=== PATIENT | male | born 1940 | race Caucasian/White ===

== ENCOUNTER → 2019-07-05 11:39 | Outpatient (CLI) | payer MEDICARE, OTHER, SELFPAY ==
[2019-07-05 12:03] LABS: WBC Urine None Seen (0-5/HPF)
[2019-07-05 12:36] LABS: Appearance Urine UA CLEAR; Bilirubin Urine UA NEGATIVE (NEGATIVE); Color Urine UA YELLOW; Glucose Urine UA NEGATIVE (Negative); Ketones Urine UA NEGATIVE (NEGATIVE); Leukocyte Esterase Urine UA NEGATIVE (NEGATIVE); Nitrite Urine UA NEGATIVE (Negative); Occult Blood Urine UA TRACE-LYSED (Negative); Protein Urine UA NEGATIVE (Negative); Urobilinogen Urine UA 0.2 E.U./dL (0.2); pH Urine UA 5.5 (4.5-8.0)
[2019-07-05 12:51] LABS: Bacteria Urine Few (2-10); Calcium Oxalate Crystals Urine Few; Culture Indicated Urine Cult Not Indicated; Mucus Urine 1+ (Negative); RBC Urine 0-1/HPF (0-5/HPF)
[2019-07-05 12:52] LABS: BUN Creatinine Ratio 27.5 (6-22); Blood Urea Nitrogen 22 mg/dL (9-20); Calcium 9.2 mg/dL (8.4-10.2); Carbon Dioxide 32 mmol/L (22-32); Chloride 100 mmol/L (98-107); Estimated Glomerular Filt Rate > 60.0 mL/min (>60); Glucose 111 mg/dL (80-110); HEMOLYSIS < 15 (0-50); Potassium 4.1 mmol/L (3.4-5.1); Sodium 141 mmol/L (137-145)
[2019-07-05 13:31] LABS: TSH w/ Reflex to FT4 4.42 uIU/mL (0.47-4.68)
== END ==
PROVIDERS: Visit Provider Student in an Organized Health Care Education/Training Program
DX: R35.0 Frequency of micturition (principal); E03.9 Hypothyroidism, unspecified; F03.90 Unspecified dementia, unspecified severity, without behavioral disturbance, psychotic disturbance, mood disturbance, and anxiety; Z86.73 Personal history of transient ischemic attack (TIA), and cerebral infarction without residual deficits
CPT/HCPCS: 36415; 80048; 81001; 84443

== ENCOUNTER 2019-07-28 21:39 | Emergency (ER) | payer MEDICARE, OTHER, SELFPAY ==
[2019-07-28 21:40] VITALS: BP 129/63; PULSE 112; RESP 32; TEMP 38.3; O2SAT 90; BMI 21.7
--- NOTE | 2019-07-28 21:44 | DI.RAD.S_ITS ---
PROCEDURE: XR CHEST 1V INDICATIONS: Short of breath and fever TECHNIQUE: One view of the chest was acquired. COMPARISON: None. FINDINGS: Surgical changes and devices: None. Lungs and pleura: The lungs are hyperexpanded. No definite, focal infiltrates are seen. No pleural effusions or pneumothorax. Mediastinum: The cardiac contours are within normal limits. The aorta demonstrates calcification and tortuosity. Bones and chest wall: No suspicious bony lesions. Age-appropriate bony degenerative changes are seen. Overlying soft tissues appear unremarkable. IMPRESSION: Unremarkable portable chest for age. As clinically appropriate, a short-term followup chest series (with PA and lateral views) performed in deep inspiration is suggested for further evaluation. Dictated by: Prince Ferreira M.D. on 07/28/2019 at 21:56 Approved by: Prince Ferreira M.D. on 07/28/2019 at 21:57
--- NOTE | 2019-07-28 21:53 | ED_ITS ---
HPI - General Adult General Chief complaint: Shortness of Breath/Dyspnea Stated complaint: SOB/fever Time Seen by Provider: 07/28/19 21:42 Source: patient and EMS Mode of arrival: EMS Limitations: no limitations History of Present Illness HPI narrative: 78-year-old male with a history of COPD. Has oxygen at home that he uses as needed here this family for shortness of breath and productive cough and feeling like that he has had chest congestion. States this has been going on for the past 3 days. He is with his daughter and . His daughter states that this happens to him frequently. She has a pill bottle with her of Bactrim. She states that whenever he gets sick like this he gets a prescription for this medication and he gets better within a day or so. They deny any fevers. He has a history of stroke in the past. He is at baseline mental status prater per family. Received a nebulizer treatment by EMS prior to arrival. Patient states this only minimally helped his symptoms Related Data Home Medications Medication Instructions Recorded Confirmed atorvastatin 80 mg tablet 80 mg PO BEDTIME 06/28/19 07/05/19 levothyroxine 75 mcg capsule 75 mcg PO DAILY 06/28/19 07/05/19 memantine 10 mg tablet 10 mg PO QPM 06/28/19 07/05/19 Previous Rx's Medication Instructions Recorded DISABLED PARKING PERMIT #1 each 06/28/19 tamsulosin 0.4 mg capsule 0.4 mg PO BEDTIME #30 cap 07/05/19 prednisone 40 mg PO DAILY #10 tab 07/28/19 sulfamethoxazole-trimethoprim 1 tab PO BID 7 Days #14 tab 07/28/19 [Bactrim DS] Allergies Allergy/AdvReac Type Severity Reaction Status Date / Time aspirin AdvReac Severe h/o Verified 07/05/19 11:18 hemorrhagic stroke Review of Systems Constitutional Constitutional: Reports fever(s) Cardiovascular Cardiovascular: Denies chest pain and Reports dyspnea Respiratory Respiratory: Reports chest congestion, Reports cough and Reports dyspnea Gastrointestinal Gastrointestinal: Denies nausea and Denies vomiting Integumentary/Breasts Skin/Breast: Denies rash Neurologic Neurologic: Denies behavioral changes Psychiatric Psychiatric: Denies behavioral changes Hematologic/Lymphatic Hematologic/Lymphatic: Denies easy bleeding and Denies easy bruising Patient History Medical History COPD (chronic obstructive pulmonary disease) (Chronic ~1999) Dementia (Chronic ~2014) Hypothyroidism (Chronic) Melanoma (Chronic ~2015) Stroke (Inactive ~2014) Surgical History (Updated 06/28/19 @ 08:31 by Izzy Love) Anesthesia (Resolved) History of hip replacement (Resolved) Social History Smoking Status: Former smoker Exam Initial Vital Signs Initial Vital Signs: Vital Signs Temperature 100.9 F H 07/28/19 21:40 Pulse Rate 112 H 07/28/19 21:40 Respiratory Rate 32 H 07/28/19 21:40 Blood Pressure 129/63 07/28/19 21:40 Pulse Oximetry 90 L 07/28/19 21:40 Const General: cooperative and comfortable Orientation: alert and awake HENMT Head: normal to inspection and normocephalic Resp Effort & Inspection: normal respiratory effort Auscultation: rhonchi Cardio Rate: tachycardic Pulses: radial pulses present GI Inspection: non-distended Palpation: soft Skin Lesions: no lesions Rashes: no rashes Neuro Other: No change from baseline patient has dysarthria Extrem General: normal to inspection and capillary refill normal Course Orders Ordered: ED Orders 07/28/19 21:44 XR chest 1V Stat EKG-12 Lead Stat 07/28/19 22:00 B Type Natriuretic Peptide Stat Complete Blood Count AUTO DIFF Stat Comprehensive Metabolic Panel Stat Lactate (Lactic Acid) Stat Lipase Stat Procalcitonin Stat Troponin I Stat 07/28/19 22:08 Influenza A and B by PCR Rapid Stat 07/28/19 22:15 Blood Culture Stat Discontinued Medications Prednisone (Deltasone) 40 mg PO NOW ONE Stop: 07/28/19 22:52 Last Admin: 07/28/19 23:03 Dose: 40 mg Documented by: TYRELL Trimethoprim/Sulfamethoxazole (Bactrim Ds) 1 tab PO NOW ONE Stop: 07/28/19 22:52 Last Admin: 07/28/19 23:03 Dose: 1 tab Documented by: TYRELL Vital Signs Vital signs: Vital Signs - 8 hr 07/28/19 21:40 07/28/19 22:10 07/28/19 22:36 Temperature 100.9 F H Pulse Rate 112 H 102 H 96 H Respiratory Rate 32 H 22 22 Blood Pressure 129/63 Blood Pressure [Left Arm] 104/61 117/59 L Pulse Oximetry 90 L 95 95 Medical Decision Making Medical Records Medical records reviewed: Yes I reviewed the patient's medical records. Lab Data Lab results reviewed: Yes I reviewed the patient's lab results. Result diagrams: 07/28/19 22:00 07/28/19 22:00 Labs: Lab Results 07/28/19 07/28/19 07/28/19 Range/Units 22:00 22:00 22:00 WBC 13.4 H (4.5-11.0) X10^3/uL RBC 4.80 (4.5-5.9) X10^6/uL Hgb 14.3 (13.5-17.5) g/dL Hct 42.4 (41-53) % MCV 88.5 (80-100) fL MCH 29.9 (26-34) PG MCHC 33.8 (30-36) % RDW 14.5 (11.6-14.8) % Plt Count 74 L (150-400) X10^3/uL Neut % (Auto) Not Reportable Lymph % (Auto) Not Reportable Calloway % (Auto) Not Reportable Eos % (Auto) Not Reportable Baso % (Auto) Not Reportable Lymph # (Auto) Not Reportable Calloway # (Auto) Not Reportable Baso # (Auto) Not Reportable Total Counted 100 Seg Neutrophils % 56.0 (38-70) % Band Neutrophils % 3.0 (3-7) % Lymphocytes % (Manual) 5.0 L (25-45) % Monocytes % (Manual) 36.0 H (2-11) % Neutrophils # (Manual) 7906 H (4530-6128) /uL Platelet Estimate Decreased on smear RBC Morphology Normal morphology Sodium 139 (137-145) mmol/L Potassium 3.8 (3.4-5.1) mmol/L Chloride 102 (98-107) mmol/L Carbon Dioxide 24 (22-32) mmol/L BUN 19 (9-20) mg/dL Creatinine 0.90 (0.66-1.25) mg/dL Estimated GFR > 60.0 (>60) mL/min BUN/Creatinine Ratio 21.1 (6-22) Glucose 174 H (80-110) mg/dL Lactate (0.7-2.1) mmol/L Calcium 8.7 (8.4-10.2) mg/dL Total Bilirubin 1.5 H (0.2-1.3) mg/dL AST 39 (17-59) IU/L ALT 28 (<50) IU/L Alkaline Phosphatase 115 (38-126) U/L Troponin I < 0.012 (0.01-0.034) ng/mL B-Natriuretic Peptide < 100 (<100) Total Protein 7.4 (6.3-8.2) g/dL Albumin 4.3 (3.5-5.0) g/dL Globulin 3.1 (1.7-4.1) g/dL Albumin/Globulin Ratio 1.4 (1.0-2.8) Lipase 154 (23-300) U/L Procalcitonin (<0.5) ng/mL Influenza A & B (PCR) (Negative) 07/28/19 07/28/19 07/28/19 Range/Units 22:00 22:00 22:08 WBC (4.5-11.0) X10^3/uL RBC (4.5-5.9) X10^6/uL Hgb (13.5-17.5) g/dL Hct (41-53) % MCV (80-100) fL MCH (26-34) PG MCHC (30-36) % RDW (11.6-14.8) % Plt Count (150-400) X10^3/uL Neut % (Auto) Lymph % (Auto) Calloway % (Auto) Eos % (Auto) Baso % (Auto) Lymph # (Auto) Calloway # (Auto) Baso # (Auto) Total Counted Seg Neutrophils % (38-70) % Band Neutrophils % (3-7) % Lymphocytes % (Manual) (25-45) % Monocytes % (Manual) (2-11) % Neutrophils # (Manual) (0251-0368) /uL Platelet Estimate RBC Morphology Sodium (137-145) mmol/L Potassium (3.4-5.1) mmol/L Chloride (98-107) mmol/L Carbon Dioxide (22-32) mmol/L BUN (9-20) mg/dL Creatinine (0.66-1.25) mg/dL Estimated GFR (>60) mL/min BUN/Creatinine Ratio (6-22) Glucose (80-110) mg/dL Lactate 2.4 H (0.7-2.1) mmol/L Calcium (8.4-10.2) mg/dL Total Bilirubin (0.2-1.3) mg/dL AST (17-59) IU/L ALT (<50) IU/L Alkaline Phosphatase (38-126) U/L Troponin I (0.01-0.034) ng/mL B-Natriuretic Peptide (<100) Total Protein (6.3-8.2) g/dL Albumin (3.5-5.0) g/dL Globulin (1.7-4.1) g/dL Albumin/Globulin Ratio (1.0-2.8) Lipase (23-300) U/L Procalcitonin 0.06 (<0.5) ng/mL Influenza A & B (PCR) Negative (Negative) Imaging Data Chest x-ray: Radiologist's impression: [address] [address] XRay Report Signed Patient: Jose Bradshaw#: [id number] : 1940Acct:[id number] Age/Sex: 78 / MDate of Service: 07/28/19 Loc: ED Accession Number: [id number] Procedure: XR chest 1V Ordering Provider: Sohail Velasco D.O. PROCEDURE: XR CHEST 1V INDICATIONS: Short of breath and fever TECHNIQUE: One view of the chest was acquired. COMPARISON: None. FINDINGS: Surgical changes and devices: None. Lungs and pleura: The lungs are hyperexpanded. No definite, focal infiltrates are seen. No pleural effusions or pneumothorax. Mediastinum: The cardiac contours are within normal limits. The aorta demonstrates calcification and tortuosity. Bones and chest wall: No suspicious bony lesions. Age-appropriate bony degenerative changes are seen. Overlying soft tissues appear unremarkable. IMPRESSION: Unremarkable portable chest for age. As clinically appropriate, a short-term followup chest series (with PA and lateral views) performed in deep inspiration is suggested for further evaluation. Dictated by: Prince Ferreira M.D. on 07/28/2019 at 21:56 Approved by: Prince Ferreira M.D. on 07/28/2019 at 21:57 ECG Data Attestation: I personally reviewed and interpreted this ECG as follows: Prior ECG tracings: not available for review Interpretation: Sinus tachycardia Ventricular rate of 109 Left axis deviation Normal QRS Normal QTC No ST T wave changes MDM Narrative Medical decision making narrative: Patient stated that he did not feel like he needed another nebulizer treatment. His oxygen saturations are greater than 90% on 2 L. He does have oxygen at home. Has had a productive cough. No definitive pneumonia on the chest x-ray however given his respiratory issues in his symptoms do not feel that was unreasonable to start him on antibiotics. According to the family it appears that he has been on Bactrim in the past and this seems to help his symptoms. He was given 1 dose of that here in the ER and a prescription for the remainder. He was also given prednisone here in the ER and a prescription for the next several days. Do not feel the patient needs admitted to the hospital. He has oxygen at home. He is nontoxic appearing. Will have him follow up with his primary doctor. We discussed return precautions. The patient family expressed understanding and agreement plan. Discharge Plan Departure Patient Disposition: Home Clinical Impression: COPD exacerbation Discharge Date/Time: 07/28/19 23:24 Instructions: Chronic Obstructive Pulmonary Disease Activity Restrictions/Additional Instructions: You were given your 1st dose of steroids and antibiotics here in the emergency department. Fill the prescription and start taking them tomorrow as directed. Use her oxygen at home as needed. Contact your primary provider for a follow- up. Return to the emergency department for any new or worsening symptoms Prescriptions: New prednisone 20 mg tablet 40 mg PO DAILY Qty: 10 RF: 0 sulfamethoxazole-trimethoprim [Bactrim DS] 800-160 mg tablet 1 tab PO BID 7 Days Qty: 14 RF: 0 No Action tamsulosin 0.4 mg capsule 0.4 mg PO BEDTIME Qty: 30 RF: 0 memantine 10 mg tablet 10 mg PO QPM RF: 0 atorvastatin 80 mg tablet 80 mg PO BEDTIME RF: 0 levothyroxine 75 mcg capsule 75 mcg PO DAILY RF: 0 Hold Instructions: trial of cessation (DME) DISABLED PARKING PERMIT Qty: 1 RF: 0 Referrals: Yogesh Stoddard MD [Primary Care Provider] -
--- NOTE | 2019-07-28 22:05 | PC.NURSE ---
Patient with hx of CVA and subsequent word salad dysphasia. Family reports pt is at his baseline after his stroke.
[2019-07-28 22:10] VITALS: BP 104/61; PULSE 102; RESP 22; O2SAT 95
[2019-07-28 22:18] LABS: Lactate (Lactic Acid) 2.4 mmol/L (0.7-2.1)
[2019-07-28 22:21] LABS: Add Manual Diff / Slide Review YES; Hematocrit 42.4 % (41-53); Hemoglobin 14.3 g/dL (13.5-17.5); Mean Corpuscular HGB Conc 33.8 % (30-36); Mean Corpuscular Hemoglobin 29.9 PG (26-34); Mean Corpuscular Volume 88.5 fL (80-100); Platelet Count 74 X10^3/uL (150-400); Red Cell Distribution Width 14.5 % (11.6-14.8); White Blood Cell Count 13.4 X10^3/uL (4.5-11.0)
[2019-07-28 22:28] LABS: B Type Natriuretic Peptide < 100 (<100)
[2019-07-28 22:30] LABS: Influenza A and B by PCR Rapid Negative (Negative)
[2019-07-28 22:33] LABS: Alanine Aminotransferase 28 IU/L (<50); Albumin 4.3 g/dL (3.5-5.0); Albumin Globulin Ratio 1.4 (1.0-2.8); Alkaline Phosphatase 115 U/L (38-126); Aspartate Aminotransferase 39 IU/L (17-59); BUN Creatinine Ratio 21.1 (6-22); Bilirubin Total 1.5 mg/dL (0.2-1.3); Blood Urea Nitrogen 19 mg/dL (9-20); Calcium 8.7 mg/dL (8.4-10.2); Carbon Dioxide 24 mmol/L (22-32); Chloride 102 mmol/L (98-107); Estimated Glomerular Filt Rate > 60.0 mL/min (>60); Globulin 3.1 g/dL (1.7-4.1); Glucose 174 mg/dL (80-110); HEMOLYSIS 27 (0-50); Lipase 154 U/L (23-300); Potassium 3.8 mmol/L (3.4-5.1); Sodium 139 mmol/L (137-145); Total Protein 7.4 g/dL (6.3-8.2)
[2019-07-28 22:36] VITALS: BP 117/59; PULSE 96; RESP 22; O2SAT 95
[2019-07-28 22:44] LABS: Troponin I < 0.012 ng/mL (0.01-0.034)
[2019-07-28 22:47] LABS: Procalcitonin 0.06 ng/mL (<0.5)
[2019-07-28] MEDS: TRIMETH/SULFA 160/800 (DS) TABLET 1 TAB PO (23:03)
[2019-07-28] MEDS: predniSONE 20 MG TABLET 40 MG PO (23:03)
[2019-07-28 23:19] LABS: Neutrophils Absolute Manual 7906 /uL (3000-5900); Platelet Estimate Decreased on smear; Total Cells Counted 100
[2019-07-28 23:20] LABS: RBC Morphology Normal Morphology
[2019-07-29 00:06] LABS: Reflexed Lactate in 2 Hours Y
== END 2019-07-28 23:24 | disposition home or self-care (01) ==
PROVIDERS: Emergency Provider Emergency Medicine; PCP Student in an Organized Health Care Education/Training Program
DX: J44.1 Chronic obstructive pulmonary disease with (acute) exacerbation (principal); R00.0 Tachycardia, unspecified; R50.9 Fever, unspecified
CPT/HCPCS: 36415; 71045; 80053; 83605; 83690; 83880; 84145; 84484; 85025; 87040; 87502; 93005; 99283; 99285

== ENCOUNTER 2019-08-02 06:45 | Inpatient (IN) | payer MEDICARE, OTHER, SELFPAY ==
[2019-08-02] VITALS (25 sets, daily range): BP systolic 102–164; BP diastolic 57–92; PULSE 92–133; RESP 12–112; TEMP 30.4–37.2; O2SAT 90–100; BMI 21.7
--- NOTE | 2019-08-02 06:52 | DI.RAD.S_ITS ---
PROCEDURE: XR CHEST 1V INDICATIONS: shortness of breath, crackles TECHNIQUE: One view of the chest was acquired. COMPARISON: [facility], CR, XR CHEST 1V, 07/28/2019, 22:21. FINDINGS: Surgical changes and devices: None. Lungs and pleura: Within the left perihilar region, poorly defined opacity can be seen. Lungs are hyperexpanded. No pneumothorax or large pleural effusion can be seen. Mediastinum: The cardiac contours are within normal limits. The aorta demonstrates calcification and tortuosity. Bones and chest wall: Age-appropriate bony degenerative changes are seen. No suspicious bony lesions. Overlying soft tissues appear unremarkable. IMPRESSION: Mild left perihilar poorly defined opacity is seen. This may be related to perihilar infiltrate from volume overload. Please consider short-term followup. Dictated by: Prince Ferreira M.D. on 08/02/2019 at 6:28 Approved by: Prince Ferreira M.D. on 08/02/2019 at 6:30
[2019-08-02] MEDS: methylPREDNISolone 125 MG/2 ML VIAL IV (07:04)
[2019-08-02] MEDS: dilTIAZem 5 MG/ML SDV 20 MG IV (07:04)
[2019-08-02] MEDS: DILTIAZEM 125 MG/125 ML PIGGYBACK IV (07:05)
--- NOTE | 2019-08-02 07:20 | ED.SOB ---
HPI - SOB/Dyspnea General Chief Complaint: Shortness of Breath/Dyspnea Stated Complaint: Respiratory distress Time Seen by Provider: 08/02/19 06:53 Source: patient and family Mode of arrival: EMS History of Present Illness HPI Narrative: Patient comes emergency department complaining of a COPD exacerbation started last night. The patient was just seen here on July 28 for a similar episode, except that this 1 was worse. The patient has recently had an upper respiratory type infection, but x-ray was negative for acute findings on his most recent visit. The patient has been on prednisone and Bactrim although the reason for the Bactrim is not clear from the medical record. The patient does not have any documented history of CHF in the medical record. He has not noticed any swelling in his legs. No fevers or chills. Patient's cough is about the same as it was several days ago. Patient uses oxygen at home around the clock. He has been requiring more oxygen recently, due to the sense of shortness of breath. The patient has been using his nebulizer treatments at home, as well, and was given a neb EN route. He was placed on CPAP by the medics and switched to BiPAP here on arrival. He was given neb treatments at that time. The patient was also treated with adenosine for a heart rate around 180. This did reveal what the medics report as an atrial flutter type rhythm, but resulted in temporary rate control. Patient states he is doing a little better now. No other complaints at this time. Related Data Home Medications Medication Instructions Recorded Confirmed atorvastatin 80 mg tablet 80 mg PO BEDTIME 06/28/19 08/02/19 memantine 10 mg tablet 10 mg PO QPM 06/28/19 08/02/19 Brovana 15 mcg INHALATION BID 08/02/19 08/02/19 albuterol sulfate 2.5 mg INHALATION .COMPLEX PRN 08/02/19 08/02/19 budesonide 0.5 mg INHALATION BID 08/02/19 08/02/19 Previous Rx's Medication Instructions Recorded DISABLED [place] #1 each 06/28/19 nebulizers #1 each 08/01/19 bisacodyl 10 mg TX DAILY PRN #10 ea 08/07/19 diltiazem HCl [Cardizem CD] 360 mg PO BEDTIME #60 cap 08/07/19 docusate sodium [DOK] 100 mg PO BID PRN #60 cap 08/07/19 guaifenesin [Mucus Relief ER] 1,200 mg PO BID 5 Days #20 tab 08/07/19 melatonin 6 mg PO BEDTIME #60 tab 08/07/19 polyethylene glycol 3350 17 gram PO DAILY PRN #30 each 08/07/19 quetiapine [Seroquel] 12.5 - 25 mg PO BEDTIME #30 tab 08/07/19 tamsulosin [Flomax] 0.4 mg PO DAILY #30 cap 08/07/19 Allergies Allergy/AdvReac Type Severity Reaction Status Date / Time aspirin AdvReac Severe h/o Verified 07/05/19 11:18 hemorrhagic stroke Review of Systems Constitutional Constitutional: Denies chills, Denies fatigue, Denies fever(s), Denies frequent falls, Denies lethargy and Denies weakness Eyes Eyes: Denies change in vision, Denies eye discharge, Denies irritation and Denies loss of vision ENT Ears, Nose, Mouth, and Throat: Denies change in voice, Denies dizziness, Denies neck pain, Denies sore throat and Denies throat swelling Cardiovascular Cardiovascular: Denies chest pain, Denies irregular heart rhythm, Denies lightheadedness, Denies palpitations, Reports dyspnea and Denies orthopnea Respiratory Respiratory: Reports cough, Reports dyspnea and Denies wheezing Gastrointestinal Gastrointestinal: Denies abdominal pain, Denies change in bowel habits, Denies diarrhea, Denies nausea and Denies vomiting Genitourinary Genitourinary: Denies hematuria, Denies flank pain, Denies urinary incontinence and Denies urinary urgency Musculoskeletal Musculoskeletal: Denies back pain, Denies muscle weakness, Denies neck pain, Denies numbness and Denies tingling Integumentary/Breasts Skin/Breast: Denies pruritus, Denies erythema, Denies rash and Denies wounds Neurologic Neurologic: Denies behavioral changes, Denies confusion, Denies dizziness, Denies frequent falls, Denies loss of vision, Denies numbness, Denies tingling and Denies weakness Psychiatric Psychiatric: Denies anxiety, Denies behavioral changes, Denies confusion, Denies depression, Denies homicidal ideation and Denies suicidal ideation Endocrine Endocrine: Denies fatigue, Denies flushing and Denies palpitations Hematologic/Lymphatic Hematologic/Lymphatic: Denies easy bruising Allergic/Immunologic Allergic/Immunologic: Denies urticaria, Denies throat swelling and Denies wheezing Patient History Medical History COPD (chronic obstructive pulmonary disease) (Chronic ~1999) Dementia (Chronic ~2014) Hypothyroidism (Chronic) Melanoma (Chronic ~2015) Stroke (Inactive ~2014) Surgical History Anesthesia (Resolved) History of hip replacement (Resolved) Social History household members: spouse and children Smoking Status: Former smoker Exam Initial Vital Signs Initial Vital Signs: Vital Signs Temperature 98.6 F 08/02/19 06:57 Pulse Rate 122 H 08/02/19 06:57 Respiratory Rate 34 H 08/02/19 06:57 Blood Pressure 164/83 H 08/02/19 06:57 Pulse Oximetry 100 08/02/19 06:57 Const General: cooperative, well developed and acute distress (Moderate, respiratory) Nutritional Appearance: well nourished Orientation: alert, awake, oriented x3 and not confused [facility] Head: normocephalic and atraumatic Ears: external ears normal Nose: external nose normal and No nasal discharge Face and sinus: face symmetric and No dry mucous membranes Mouth: oral mucosae normal and moist mucous membranes Teeth and gingiva: dentition normal Eyes General: appearance normal, both eyes and all related structures Eyelids: eyelids normal Conjunctivae: conjunctivae normal Sclera: sclerae normal Pupils: PERRL EOM: EOM intact bilaterally Neck Neck: normal visual inspection, trachea midline, No lymphadenopathy, No midline deformity and No JVD Lymphatic: No lymphedema Chest Chest: normal inspection of the chest Resp Effort & Inspection: abnormal respiratory pattern (Prolonged expiratory phase), labored, respiratory distress (Moderate) and uses accessory muscles Auscultation: rales (Mild, bases bilaterally), rhonchi and no wheezes Cardio Rate: regular rate Rhythm: regular rhythm Heart Sounds: no click, no gallops, no murmurs and no rubs Pulses: normal peripheral pulses GI Inspection: non-distended Palpation: soft, no hepatosplenomegaly, No guarding, No pulsatile mass and No tender Back/Spine/Pelvis Back: No CVA tenderness Cervical Spine: cervical ROM normal and No pain with cervical ROM Thoracic/Lumbar Spine: thoracic and lumbar spine normal to inspection Skin General: no rashes or lesions noted, No jaundice and No petechiae Neuro General: alert, oriented x3, gait normal and no focal motor deficits Speech: speech normal Extrem General: full ROM, no clubbing, cyanosis or edema, no pedal edema and no calf tenderness Psych Appearance: well kempt Mental Status: mental status grossly normal Attitude: cooperative Thought Content: normal and suicidality Judgment: judgment good Course Course Course Narrative: The patient arrived prior to my shift and was initially evaluated by Dr. Matthews. He was found to be in respiratory distress at that time, and as such, was placed on BiPAP in the emergency department. He had received nebulizer treatments EN route, and was already on steroid treatment. The patient did improve with placement of BiPAP. The patient was also in atrial flutter with rapid ventricular response, and was given diltiazem for this. He was ultimately placed on a diltiazem drip, and ultimately, achieved good rate control. He did have what sounded like rales on examination, and there was concern over possible CHF, given this and the patient's initially high heart rate. However, the patient's x-ray did not show findings that were convincing for chronic or acute CHF, and given that the patient did not have other physical findings to support CHF, he was not treated any further for this. The patient's BNP was minimally elevated at 260. The patient was found to be doing much better on re-evaluation. He was kept on BiPAP and the diltiazem. I spoke with Dr. Hernandez who is on-call for hospitalist service, and he agreed to admit the patient to his service. At his request, I did order respiratory panel, and the patient was given Zithromax and Rocephin. Orders Ordered: Discontinued Medications Albuterol (Ventolin) 2.5 mg INH RTQ2HR PRN PRN Reason: Shortness Of Breath Last Admin: 08/07/19 09:34 Dose: 2.5 mg Documented by: Admin: 08/02/19 12:40 Dose: 2.5 mg Documented by: CARLOS Albuterol/Ipratropium (Duoneb) 3 ml INH RTQ4HR ROBERTA Last Admin: 08/06/19 18:07 Dose: Not Given Documented by: Admin: 08/06/19 15:55 Dose: 3 ml Documented by: Admin: 08/06/19 12:28 Dose: Not Given Documented by: Admin: 08/06/19 10:50 Dose: 3 ml Documented by: Admin: 08/06/19 03:50 Dose: Not Given Documented by: Admin: 08/05/19 23:31 Dose: 3 ml Documented by: Admin: 08/05/19 19:19 Dose: Not Given Documented by: Admin: 08/05/19 15:05 Dose: 3 ml Documented by: Admin: 08/05/19 12:17 Dose: Not Given Documented by: Admin: 08/05/19 11:08 Dose: Not Given Documented by: Admin: 08/05/19 06:20 Dose: 3 ml Documented by: Admin: 08/05/19 03:25 Dose: 3 ml Documented by: Admin: 08/05/19 00:24 Dose: 3 ml Documented by: Admin: 08/04/19 20:54 Dose: 3 ml Documented by: Admin: 08/04/19 16:13 Dose: 3 ml Documented by: Admin: 08/04/19 09:27 Dose: 3 ml Documented by: Admin: 08/04/19 06:45 Dose: 3 ml Documented by: Admin: 08/04/19 00:34 Dose: 3 ml Documented by: Admin: 08/03/19 19:00 Dose: 3 ml Documented by: Admin: 08/03/19 16:56 Dose: 3 ml Documented by: Admin: 08/03/19 13:08 Dose: 3 ml Documented by: Admin: 08/03/19 11:11 Dose: Not Given Documented by: Admin: 08/03/19 06:10 Dose: 3 ml Documented by: Admin: 08/03/19 02:47 Dose: 3 ml Documented by: Admin: 08/02/19 22:12 Dose: 3 ml Documented by: Admin: 08/02/19 18:29 Dose: 3 ml Documented by: Admin: 08/02/19 15:05 Dose: 3 ml Documented by: Admin: 08/02/19 10:03 Dose: 3 ml Documented by: CARLOS Albuterol/Ipratropium (Duoneb) 3 ml INH RTQ4HR PRN PRN Reason: Wheezing Albuterol/Ipratropium (Duoneb) 3 ml INH [id number] [facility] Atorvastatin Calcium (Lipitor) 80 mg PO BEDTIME [facility] Last Admin: 08/06/19 19:49 Dose: 80 mg Documented by: Admin: 08/05/19 21:26 Dose: Not Given Documented by: Admin: 08/04/19 20:34 Dose: 80 mg Documented by: Admin: 08/03/19 21:32 Dose: Not Given Documented by: Admin: 08/02/19 21:13 Dose: Not Given Documented by: ANTOLIN Bisacodyl (Dulcolax) 10 mg TX DAILY PRN PRN Reason: Constipation Citalopram Hydrobromide (Celexa) 20 mg PO DAILY [facility] Last Admin: 08/06/19 10:54 Dose: 20 mg Documented by: Admin: 08/05/19 15:19 Dose: 20 mg Documented by: ANTOLIN Diltiazem HCl (Cardizem) 20 mg IV NOW ONE Stop: 08/02/19 06:57 Last Admin: 08/02/19 07:04 Dose: 20 mg Documented by: NAOMIE Diltiazem HCl (Cardizem Cd) 240 mg PO DAILY [facility] Last Admin: 08/05/19 08:18 Dose: 240 mg Documented by: Admin: 08/04/19 16:43 Dose: 240 mg Documented by: ANTOLIN Diltiazem HCl (Cardizem) 60 mg PO NOW ONE Stop: 08/05/19 14:10 Last Admin: 08/05/19 14:24 Dose: 60 mg Documented by: HARRY Diltiazem HCl (Cardizem Cd) 360 mg PO BEDTIME [facility] Last Admin: 08/06/19 19:56 Dose: 360 mg Documented by: Admin: 08/05/19 20:58 Dose: 360 mg Documented by: ANTOLIN Docusate Sodium (Colace) 100 mg PO BID PRN PRN Reason: Constipation Enoxaparin Sodium (Lovenox) 40 mg SUBCUT DAILY [facility] Last Admin: 08/07/19 08:16 Dose: 40 mg Documented by: Admin: 08/06/19 10:54 Dose: 40 mg Documented by: Admin: 08/05/19 08:23 Dose: 40 mg Documented by: Admin: 08/04/19 12:27 Dose: 40 mg Documented by: Admin: 08/03/19 09:20 Dose: 40 mg Documented by: PRINCESS Furosemide (Lasix) 40 mg IV NOW ONE Stop: 08/02/19 12:23 Last Admin: 08/02/19 12:30 Dose: 40 mg Documented by: RANDALL Guaifenesin (Mucinex) 600 mg PO BID [facility] Last Admin: 08/07/19 08:17 Dose: 600 mg Documented by: Admin: 08/06/19 22:06 Dose: Not Given Documented by: Admin: 08/06/19 10:54 Dose: 600 mg Documented by: Admin: 08/05/19 21:26 Dose: Not Given Documented by: Admin: 08/05/19 09:29 Dose: 600 mg Documented by: Admin: 08/04/19 20:32 Dose: 600 mg Documented by: Admin: 08/04/19 02:02 Dose: Not Given Documented by: GER Haloperidol (Haldol) 5 mg IV NOW ONE Stop: 08/02/19 12:31 Last Admin: 08/02/19 12:40 Dose: 5 mg Documented by: RANDALL Heparin Sodium (Porcine) (Heparin Flush (Cl/Picc/Mid)) 50 unit IV PRN PRN PRN Reason: Flush Heparin Sodium (Porcine) (Heparin Flush (Cl/Picc/Mid)) 50 unit IV BID [facility] Last Admin: 08/07/19 08:17 Dose: 50 unit Documented by: RANDALL DILTIAZEM (Diltiazem 125 Mg/125 [id number]) 125 mg in 125 mls @ 5 mls/hr IV TITRATE [facility]; Protocol Last Titration: 08/04/19 22:00 Dose: 10 mg/hr, 10 mls/hr Documented by: Titration: 08/04/19 20:30 Dose: 15 mg/hr, 15 mls/hr Documented by: Admin: 08/04/19 19:32 Dose: 10 mg/hr, 10 mls/hr Documented by: Titration: 08/04/19 19:32 Dose: 15 mg/hr, 15 mls/hr Documented by: Admin: 08/04/19 14:30 Dose: 15 mg/hr, 15 mls/hr Documented by: Titration: 08/04/19 07:38 Dose: 15 mg/hr, 15 mls/hr Documented by: Admin: 08/03/19 23:18 Dose: 15 mg/hr, 15 mls/hr Documented by: Titration: 08/03/19 23:18 Dose: 15 mg/hr, 15 mls/hr Documented by: Admin: 08/03/19 16:15 Dose: 15 mg/hr, 15 mls/hr Documented by: Titration: 08/03/19 15:48 Dose: 15 mg/hr, 15 mls/hr Documented by: Admin: 08/03/19 07:28 Dose: 15 mg/hr, 15 mls/hr Documented by: Titration: 08/03/19 07:28 Dose: 15 mg/hr, 15 mls/hr Documented by: Admin: 08/03/19 00:20 Dose: 15 mg/hr, 15 mls/hr Documented by: Titration: 08/03/19 00:20 Dose: 15 mg/hr, 15 mls/hr Documented by: Admin: 08/02/19 16:40 Dose: 15 mg/hr, 15 mls/hr Documented by: Titration: 08/02/19 16:40 Dose: 15 mg/hr, 15 mls/hr Documented by: Titration: 08/02/19 11:00 Dose: 15 mg/hr, 15 mls/hr Documented by: Titration: 08/02/19 09:30 Dose: 10 mg/hr, 10 mls/hr Documented by: Admin: 08/02/19 07:05 Dose: 5 mg/hr, 5 mls/hr Documented by: NAOMIE Azithromycin 500 mg/ Dextrose 250 mls @ 250 mls/hr IV NOW ONE Stop: 08/02/19 07:57 Last Infusion: 08/02/19 11:36 Dose: 0 mls/hr Documented by: Admin: 08/02/19 10:28 Dose: 250 mls/hr Documented by: RANDALL Ceftriaxone Sodium/Dextrose (Rocephin) 2 gm in 50 mls @ 100 mls/hr IV NOW ONE Stop: 08/02/19 08:44 Last Infusion: 08/02/19 10:06 Dose: 0 mls/hr Documented by: Admin: 08/02/19 08:40 Dose: 100 mls/hr Documented by: MARS Ceftriaxone Sodium/Dextrose (Rocephin) 1 gm in 50 mls @ 100 mls/hr IV Q24H [facility] Last Infusion: 08/06/19 09:56 Dose: 0 mls/hr Documented by: Admin: 08/06/19 09:03 Dose: 100 mls/hr Documented by: Infusion: 08/06/19 07:26 Dose: 0 mls/hr Documented by: Admin: 08/05/19 08:18 Dose: 100 mls/hr Documented by: Infusion: 08/04/19 14:24 Dose: 0 mls/hr Documented by: Admin: 08/04/19 12:28 Dose: 100 mls/hr Documented by: Infusion: 08/03/19 10:42 Dose: 0 mls/hr Documented by: Admin: 08/03/19 09:20 Dose: 100 mls/hr Documented by: PRINCESS Azithromycin 500 mg/ Dextrose 250 mls @ 250 mls/hr IV Q24H [facility] Last Infusion: 08/06/19 11:27 Dose: 0 mls/hr Documented by: Admin: 08/06/19 09:56 Dose: 250 mls/hr Documented by: Infusion: 08/06/19 07:26 Dose: 0 mls/hr Documented by: Admin: 08/05/19 09:29 Dose: 250 mls/hr Documented by: Infusion: 08/04/19 12:29 Dose: 0 mls/hr Documented by: Admin: 08/04/19 10:00 Dose: 250 mls/hr Documented by: Infusion: 08/03/19 15:43 Dose: 0 mls/hr Documented by: Admin: 08/03/19 11:11 Dose: 250 mls/hr Documented by: PRINCESS Lorazepam (Ativan) 0.5 mg IV Q2HR PRN PRN Reason: Anxiety Last Admin: 08/03/19 17:47 Dose: 0.5 mg Documented by: Admin: 08/02/19 21:20 Dose: 0.5 mg Documented by: Admin: 08/02/19 19:48 Dose: 0.5 mg Documented by: Admin: 08/02/19 14:17 Dose: 0.5 mg Documented by: Admin: 08/02/19 11:18 Dose: 0.5 mg Documented by: RANDALL Melatonin (Melatonin) 6 mg PO BEDTIME [facility] Last Admin: 08/05/19 23:43 Dose: 6 mg Documented by: Admin: 08/05/19 19:12 Dose: 6 mg Documented by: Admin: 08/04/19 20:32 Dose: 6 mg Documented by: Admin: 08/03/19 23:17 Dose: 6 mg Documented by: GER Memantine (Namenda) 10 mg PO QPM [facility] Last Admin: 08/06/19 19:48 Dose: 10 mg Documented by: Admin: 08/05/19 16:51 Dose: 10 mg Documented by: Admin: 08/04/19 16:43 Dose: 10 mg Documented by: Admin: 08/03/19 17:02 Dose: 10 mg Documented by: Admin: 08/02/19 17:06 Dose: Not Given Documented by: ANTOLIN Methylprednisolone (Solu-Medrol 125 Mg Vial) 125 mg IV NOW ONE Stop: 08/02/19 06:52 Last Admin: 08/02/19 07:04 Dose: 125 mg Documented by: NAOMIE Olanzapine (Zyprexa Zydis) 10 mg PO NOW ONE Stop: 08/02/19 21:37 Last Admin: 08/02/19 21:58 Dose: 10 mg Documented by: ANTOLIN Olanzapine (Zyprexa Zydis) 10 mg PO NOW ONE Stop: 08/03/19 18:15 Last Admin: 08/03/19 18:15 Dose: 10 mg Documented by: ANTOLIN Olanzapine (Zyprexa) 5 mg IM NOW ONE Stop: 08/05/19 19:30 Last Admin: 08/05/19 20:00 Dose: 5 mg Documented by: ANTOLIN Polyethylene Glycol (Miralax) 17 gm PO DAILY PRN PRN Reason: Constipation Prednisone (Deltasone) 40 mg PO DAILY [facility] Last Admin: 08/06/19 10:54 Dose: 40 mg Documented by: Admin: 08/05/19 09:29 Dose: 40 mg Documented by: Admin: 08/03/19 17:02 Dose: 40 mg Documented by: Admin: 08/03/19 10:03 Dose: Not Given Documented by: PRINCESS Quetiapine Fumarate (Seroquel) 25 mg PO BEDTIME [facility] Last Admin: 08/05/19 19:13 Dose: 25 mg Documented by: ANTOLIN Sodium Chloride (Normal Saline 0.9% Flush) 10 ml IV PRN PRN PRN Reason: Flush Sodium Chloride (Normal Saline 0.9% Flush) 10 ml IV BID [facility] Last Admin: 08/07/19 08:17 Dose: 10 ml Documented by: RANDALL Tamsulosin HCl (Flomax) 0.4 mg PO DAILY [facility] Last Admin: 08/07/19 08:17 Dose: 0.4 mg Documented by: Admin: 08/06/19 10:55 Dose: 0.4 mg Documented by: Admin: 08/05/19 08:18 Dose: 0.4 mg Documented by: Admin: 08/04/19 20:31 Dose: 0.4 mg Documented by: ANTOLIN Vital Signs Vital signs: Vital Signs - 8 hr 08/02/19 06:57 08/02/19 07:10 Temperature 98.6 F Pulse Rate 122 H 94 H Respiratory Rate 34 H 21 Blood Pressure 164/83 H Blood Pressure [Left Arm] 107/64 Pulse Oximetry 100 97 MDM - SOB/Dyspnea Medical Records Attestation: I reviewed the patient's medical records. Lab Data Attestation: I reviewed the patient's lab results. Result diagrams: 08/07/19 06:08 08/07/19 06:08 Labs: Lab Results 08/02/19 08/02/19 08/02/19 Range/Units 07:03 07:08 07:08 WBC 22.7 H (4.5-11.0) X10^3/uL RBC 5.20 (4.5-5.9) X10^6/uL Hgb 15.7 (13.5-17.5) g/dL Hct 45.7 (41-53) % MCV 88.0 (80-100) fL MCH 30.2 (26-34) PG MCHC 34.3 (30-36) % RDW 15.1 H (11.6-14.8) % Plt Count 144 L (150-400) X10^3/uL Neut % (Auto) Not Reportable Lymph % (Auto) Not Reportable [place] % (Auto) Not Reportable Eos % (Auto) Not Reportable Baso % (Auto) Not Reportable Lymph # (Auto) Not Reportable [place] # (Auto) Not Reportable Baso # (Auto) Not Reportable Total Counted 100 Seg Neutrophils % 76.0 H (38-70) % Band Neutrophils % 5.0 (3-7) % Lymphocytes % (Manual) 5.0 L (25-45) % Monocytes % (Manual) 14.0 H (2-11) % Neutrophils # (Manual) 17291 H (9439-9126) /uL Platelet Estimate Decreased on smear Plt Morphology Comment RBC Morphology Normal morphology PT 14.0 H (10.1-12.7) SECONDS INR 1.2 (0.9-1.3) APTT 27 (26.4-36.2) SECONDS ABG pH 7.44 (7.35-7.45) ABG pCO2 33.7 L (35-45) mmHg ABG pO2 115 H (80-100) mmHg ABG HCO3 23 (22-26) mmol/L ABG Total CO2 24 (21-31) mmol/L ABG O2 Saturation 99 (95-100) % ABG Base Excess -1.0 (-2-2) mmol/L FiO2 35 Sodium (137-145) mmol/L Potassium (3.4-5.1) mmol/L Chloride (98-107) mmol/L Carbon Dioxide (22-32) mmol/L BUN (9-20) mg/dL Creatinine (0.66-1.25) mg/dL Estimated GFR (>60) mL/min BUN/Creatinine Ratio (6-22) Glucose (80-110) mg/dL Lactate (0.7-2.1) mmol/L Calcium (8.4-10.2) mg/dL Magnesium (1.6-2.3) mg/dL Total Bilirubin (0.2-1.3) mg/dL AST (17-59) IU/L ALT (<50) IU/L Alkaline Phosphatase (38-126) U/L Total Creatine Kinase (55-170) U/L CK-MB (CK-2) CK-MB (CK-2) Rel Index Troponin I (0.01-0.034) ng/mL B-Natriuretic Peptide 268 H (<100) Total Protein (6.3-8.2) g/dL Albumin (3.5-5.0) g/dL Globulin (1.7-4.1) g/dL Albumin/Globulin Ratio (1.0-2.8) Procalcitonin (<0.5) ng/mL 08/02/19 08/02/19 08/02/19 Range/Units 07:08 07:08 07:25 WBC (4.5-11.0) X10^3/uL RBC (4.5-5.9) X10^6/uL Hgb (13.5-17.5) g/dL Hct (41-53) % MCV (80-100) fL MCH (26-34) PG MCHC (30-36) % RDW (11.6-14.8) % Plt Count (150-400) X10^3/uL Neut % (Auto) Lymph % (Auto) [place] % (Auto) Eos % (Auto) Baso % (Auto) Lymph # (Auto) [place] # (Auto) Baso # (Auto) Total Counted Seg Neutrophils % (38-70) % Band Neutrophils % (3-7) % Lymphocytes % (Manual) (25-45) % Monocytes % (Manual) (2-11) % Neutrophils # (Manual) ([id number]) /uL Platelet Estimate Plt Morphology Comment RBC Morphology PT (10.1-12.7) SECONDS INR (0.9-1.3) APTT (26.4-36.2) SECONDS ABG pH (7.35-7.45) ABG pCO2 (35-45) mmHg ABG pO2 (80-100) mmHg ABG HCO3 (22-26) mmol/L ABG Total CO2 (21-31) mmol/L ABG O2 Saturation (95-100) % ABG Base Excess (-2-2) mmol/L FiO2 Sodium 140 (137-145) mmol/L Potassium 4.6 (3.4-5.1) mmol/L Chloride 102 (98-107) mmol/L Carbon Dioxide 25 (22-32) mmol/L BUN 35 H (9-20) mg/dL Creatinine 1.00 (0.66-1.25) mg/dL Estimated GFR > 60.0 (>60) mL/min BUN/Creatinine Ratio 35.0 H (6-22) Glucose 164 H (80-110) mg/dL Lactate 1.6 (0.7-2.1) mmol/L Calcium 8.8 (8.4-10.2) mg/dL Magnesium 2.2 (1.6-2.3) mg/dL Total Bilirubin 1.2 (0.2-1.3) mg/dL AST 33 (17-59) IU/L ALT 29 (<50) IU/L Alkaline Phosphatase 122 (38-126) U/L Total Creatine Kinase 78 (55-170) U/L CK-MB (CK-2) TNP CK-MB (CK-2) Rel Index TNP Troponin I < 0.012 (0.01-0.034) ng/mL B-Natriuretic Peptide (<100) Total Protein 8.0 (6.3-8.2) g/dL Albumin 4.3 (3.5-5.0) g/dL Globulin 3.7 (1.7-4.1) g/dL Albumin/Globulin Ratio 1.2 (1.0-2.8) Procalcitonin 0.25 (<0.5) ng/mL Point of Care Testing Glucose POC 168 Imaging Data Chest x-ray: Radiologist's impression: PROCEDURE: XR CHEST 1V INDICATIONS: shortness of breath, crackles TECHNIQUE: One view of the chest was acquired. COMPARISON: [facility], CR, XR CHEST 1V, 07/28/2019, 22:21. FINDINGS: Surgical changes and devices: None. Lungs and pleura: Within the left perihilar region, poorly defined opacity can be seen. Lungs are hyperexpanded. No pneumothorax or large pleural effusion can be seen. Mediastinum: The cardiac contours are within normal limits. The aorta demonstrates calcification and tortuosity. Bones and chest wall: Age-appropriate bony degenerative changes are seen. No suspicious bony lesions. Overlying soft tissues appear unremarkable. IMPRESSION: Mild left perihilar poorly defined opacity is seen. This may be related to perihilar infiltrate from volume overload. Please consider short-term followup. Dictated by: Prince Ferreira M.D. on 08/02/2019 at 6:28 Approved by: Prince Ferreira M.D. on 08/02/2019 at 6:30 ECG Data Attestation: I personally reviewed and interpreted this ECG as follows: (See below) Interpretation: Twelve lead EKG performed August 02, 2019 at 6:57 a.m., as follows: Irregular ventricular rhythm with a rate of 131 beats per minute P waves undetectable, as are TX intervals. Saw tooth pattern baseline is noted. QRS duration 76 millisecond QTC interval [address] T wave changes Interpretation: Atrial flutter with rapid ventricular response; marked left axis deviation; no signs of acute ischemia; abnormal EKG as interpreted by ED MD. Critical Care Time Critical Care Time Critical Care Time: Yes Total Critical Care Time: 40 Attestation: Critical care time was necessary, due to high probability of imminent decline and , due to respiratory failure, acute COPD exacerbation and atrial flutter with rapid ventricular response. Critical care time is exclusive of separately billable procedures. Critical care time included: Interviewing and examining the patient and family, ordering and reviewing laboratory studies, ordering and reviewing imaging studies, ordering and reviewing EKG, interpreting monitor, evaluating cardiac output, evaluating and interpreting oxygen saturation, ventilator management, discussion with consultants, discussion of results with patient and family, re-examining the patient, and documentation. Discharge Plan Departure Patient Disposition: Admitted As Inpatient Clinical Impression: COPD exacerbation, Atrial flutter with rapid ventricular response Respiratory failure, acute Qualifiers: Respiratory failure complication: hypoxia Qualified Code(s): J96.01 - Acute respiratory failure with hypoxia Discharge Date/Time: 08/02/19 09:30 Admit Date/Time: 08/02/19 08:00 Admit Provider: Ishmael Hernandez
[2019-08-02 07:22] LABS: INR 1.2 (0.9-1.3)
[2019-08-02 07:25] LABS: PTT Partial Thromboplastin Tim 27 SECONDS (26.4-36.2)
[2019-08-02 07:26] LABS: Fractionated Inspired Oxygen 35; HCO3 ABG 23 mmol/L (22-26); Oxygen Saturation ABG 99 % (95-100); PCO2 ABG 33.7 mmHg (35-45); PO2 ABG 115 mmHg (80-100); TCO2 ABG 24 mmol/L (21-31); pH ABG 7.44 (7.35-7.45)
[2019-08-02 07:29] LABS: Alanine Aminotransferase 29 IU/L (<50); Albumin 4.3 g/dL (3.5-5.0); Albumin Globulin Ratio 1.2 (1.0-2.8); Alkaline Phosphatase 122 U/L (38-126); Aspartate Aminotransferase 33 IU/L (17-59); Bilirubin Total 1.2 mg/dL (0.2-1.3); Blood Urea Nitrogen 35 mg/dL (9-20); Calcium 8.8 mg/dL (8.4-10.2); Carbon Dioxide 25 mmol/L (22-32); Chloride 102 mmol/L (98-107); Creatine Kinase 78 U/L (55-170); Estimated Glomerular Filt Rate > 60.0 mL/min (>60); Globulin 3.7 g/dL (1.7-4.1); Glucose 164 mg/dL (80-110); HEMOLYSIS 20 (0-50); Magnesium 2.2 mg/dL (1.6-2.3); Potassium 4.6 mmol/L (3.4-5.1); Sodium 140 mmol/L (137-145)
--- NOTE | 2019-08-02 07:30 | PC.NURSE ---
Pt arrived via [place] [id number] [facility] on CPAP. Per EMS report, dispatch to home where pt was in Resp Distress, HR 180's. EMS admin'd a duoneb treatment, 6mg Adenosine and 12 mg adenosine. Rate slowed to reveal AFlutter. EMS then gave 18mg Cardizem. Pt to room 1 and placed on Bipap by RT at 16:8 at 35% FiO2. 99% sat. pt appears to be tolerating well. placed on language interpreter, EKG obtained, Labs drawn from 18G IV RAC placed by EMS. Pt received 400mL NS by EMS which was stopped on arrival. Coarse lungs with moist cough. Pt and family deny h/o CHF. ABG and CXR obtained. Meds given per NOV. HR 96, BP 107/systolic. Handoff report given to HECTOR Caballero. Care relinquished at this time.
[2019-08-02 07:32] LABS: Hematocrit 45.7 % (41-53); Hemoglobin 15.7 g/dL (13.5-17.5); Mean Corpuscular HGB Conc 34.3 % (30-36); Mean Corpuscular Hemoglobin 30.2 PG (26-34); Platelet Count 144 X10^3/uL (150-400); Red Cell Distribution Width 15.1 % (11.6-14.8); White Blood Cell Count 22.7 X10^3/uL (4.5-11.0)
[2019-08-02 07:40] LABS: Troponin I < 0.012 ng/mL (0.01-0.034)
[2019-08-02 07:43] LABS: Add Manual Diff / Slide Review YES
[2019-08-02 07:49] LABS: Procalcitonin 0.25 ng/mL (<0.5)
[2019-08-02 07:50] LABS: B Type Natriuretic Peptide 268 (<100)
[2019-08-02 07:53] LABS: Neutrophils Absolute Manual 18387 /uL (3000-5900); Total Cells Counted 100
[2019-08-02 07:54] LABS: Platelet Estimate Decreased on smear; RBC Morphology Normal Morphology
[2019-08-02 07:54] LABS: Lactate (Lactic Acid) 1.6 mmol/L (0.7-2.1)
[2019-08-02] MEDS: CEFTRIAXONE 2 GM/50 ML FROZ.PIGGY IV (08:40)
--- NOTE | 2019-08-02 09:55 | PC.NURSE ---
Addendum entered by Mitali Hwang R.N. 08/02/19 14:37: Pt agitated and restless, attempting unsuccessfully to urinate for about 30 min, difficult to console, grabbing at staff and blankets/mask/lines. Order received for Cottrell catheter which was placed without issue. Immediate output of 400 ml of yellow urine. Pt note resting quietly on bipap. Family remains at bedside. Addendum entered by Mitali Hwang R.N. 08/02/19 13:18: Patient became increasingly agitated around 1120, grabbing and pulling at lines and masks. Family and staff unable to redirect or console, Ativan 0.5 mg IV administered with little effect noted. Pt continued with agitation and attempts to remove lines and masks, appearing very anxious. Attempted to assist to void - pt found to be incontinent - brief in now in place. RR up to the 40s and HR up to the 130s aflutter (diltiazem gtt 15 mg/hr) at 1200, breathing very coarse throughout, easily audible, breathing very labored. Dr. Hernandez at bedside. Lasix 40 mg IV administered per MD order and Haldol 5 mg IV administered for agitation. At 1235 pt resting calmly, tolerating bipap, RR in the 20s, HR in the 90s, and SpO2 95-99% with FiO2 30%. Family at bedside. Original Note: Admit Note Patient arrived to room 105 from ER at 0920 via stretcher. Transferred to bed via slider board with bipap in place. SpO2 at 94%, breathing appears nonlabored, RR in the 20-24 bpm range. Pt reports breathing is improved from when he came in this AM. Lung sounds coarse throughout. Diltiazem gtt at 5 mg/hr on arrival, a flutter in the low 100s, gtt increased to 10 mg/hr. BP stable. Oriented to room and to call light/tv/bed controls. Call light within reach. Bed alarm on. at bedside.
[2019-08-02] MEDS: ALBUTEROL/IPRATROPIUM 3 ML AMPUL INH ×4 (10:03→22:12)
--- NOTE | 2019-08-02 10:24 | P.HP_ITS ---
History of Present Illness History of Present Illness Date Patient Seen: 08/02/19 Time Patient Seen: 10:24 Chief complaint: Respiratory distress Narrative: Mr. 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 Current symptoms started yesterday evening which she reports as constant shortness of breath requiring persistent supplemental oxygen at home. He presented to the emergency room approximately 5 days ago with similar symptoms, but yesterday his symptoms were worse than previous. He seemed to get a little bit better after visiting the emergency room. He was given prednisone and Bactrim. He did not fully improve as far as his breathing an he is also been having nasal congestion and runny nose. He reports a high fever prior to the 1st ER visit, and consistent chills since. However, last night he became more short of breath than he had previously. He attempted home nebulizers but when this did not improve he decided to come to the emergency room. He reports entire family has been sick with cold symptoms including nasal congestion, runny nose, and cough. He did receive his flu shot this year. He called EMS, who gave a nebulizer EN route and was placed on CPAP. He was switched to BiPAP in the emergency room, given further nebulizer treatments, as well as steroids. His vitals were notable for a heart rate around 180 on telemetry, he was given adenosine which revealed an atrial flutter rhythm. He was given IV Dilt and then started on a diltiazem drip with improved rate control. He was transferred to the ICU on BiPAP therapy. In the ICU, telemetry revealed atrial flutter rhythm with a tachycardic rate in the 100s, he is tachypneic in the upper 20s to 30s and on high inspiratory and expiratory pressures. Pressures were decreased as was oxygen as patient was satting around 97%. Patient now on BiPAP of 10/5 at 30% O2 and saturating in the mid to low 90s. Patient History Medical History COPD (chronic obstructive pulmonary disease) (Chronic ~1999) Dementia (Chronic ~2014) Hypothyroidism (Chronic) Melanoma (Chronic ~2015) Stroke (Inactive ~2015) Surgical History Anesthesia (Resolved) History of hip replacement (Resolved) Family & Social History Social History: household members spouse Prior Living Arrangements House Safety & Behavioral: Feels Safe in Current Yes Environment Been Physically Hurt or No Threatened By a Person Suicidal Ideation Description None Suicide Plan Description No Plan Tobacco & Substance use: Smoking Status Former smoker alcohol intake frequency a few times a month Substance Use Type does not use Meds Home Medications and Allergies Home Medications Medication Instructions Recorded Confirmed Type DISABLED PARKING PERMIT #1 each 06/28/19 08/02/19 Rx atorvastatin 80 mg tablet 80 mg PO BEDTIME 06/28/19 08/02/19 History memantine 10 mg tablet 10 mg PO QPM 06/28/19 08/02/19 History prednisone 40 mg PO DAILY #10 tab 07/28/19 08/02/19 Rx sulfamethoxazole-trimethoprim 1 tab PO BID 7 Days #14 tab 07/28/19 08/02/19 Rx [Bactrim DS] nebulizers #1 each 08/01/19 08/02/19 Rx albuterol sulfate 2.5 mg INHALATION .COMPLEX PRN 08/02/19 08/02/19 History arformoterol [Brovana] 15 mcg INHALATION BID 08/02/19 08/02/19 History budesonide 0.5 mg INHALATION BID 08/02/19 08/02/19 History Allergies Allergy/AdvReac Type Severity Reaction Status Date / Time aspirin AdvReac Severe h/o Verified 07/05/19 11:18 hemorrhagic stroke Review of Systems Review of Systems Narrative: All other systems reviewed with the patient and are negative unless otherwise stated. Exam Vital Signs (past 8 hours): - 08/02/19 06:57 08/02/19 06:59 08/02/19 07:10 Temperature 98.6 F Pulse Rate 122 H 94 H Respiratory Rate 34 H 21 Blood Pressure 164/83 H 164/83 H Blood Pressure [Left Arm] 107/64 Pulse Oximetry 100 97 08/02/19 07:18 08/02/19 08:01 08/02/19 09:03 Temperature Pulse Rate 92 H 97 H Respiratory Rate 26 H 30 H Blood Pressure 119/74 Blood Pressure [Left Arm] 121/79 126/79 Pulse Oximetry 90 L 08/02/19 09:44 Temperature 98 F Pulse Rate 100 H Respiratory Rate 31 H Blood Pressure 134/81 Blood Pressure [Left Arm] Pulse Oximetry 100 Fraction of Inspired Oxygen 35 Oxygen Delivery Method BiPAP Narrative Exam Narrative: GENERAL APPEARANCE: Elderly male sitting upright in hospital bed, BiPAP in place, anxious, picking at mask and pulse oximetry. Needing frequent reminders by family to not take off his mask. SKIN: Inspection of the skin reveals no rashes, ulcerations or petechiae. HEENT: BiPAP mask in place, pupils equally round and reactive, EOMI. NECK: Supple and symmetric. There was no thyroid enlargement, and no tenderness, or masses were felt. CHEST: Note tenderness, no kyphoscoliosis. LUNGS: Auscultation of the lungs revealed mild expiratory wheezing, and though difficult with the BiPAP to hear, possible bibasilar rales. CARDIOVASCULAR: Distant heart sounds. There was a regular tachycardia without any murmurs, gallops, rubs. Peripheral pulses were 2+ and symmetric. ABDOMEN: Soft. Mild suprapubic tenderness. MUSCULOSKELETAL: There was no tenderness or effusions noted. Muscle strength and tone were normal. EXTREMITIES: No cyanosis, clubbing or edema. NEUROLOGIC: Alert. Normal affect. Strength is +5/5 in the Upper Extremities and Lower Extremities Bilaterally. Objective Labs Result Diagrams: 08/02/19 07:08 08/02/19 07:08 Labs: Laboratory Results - last 24 hr 08/02/19 08/02/19 08/02/19 07:03 07:08 07:08 WBC 22.7 H RBC 5.20 Hgb 15.7 Hct 45.7 MCV 88.0 MCH 30.2 MCHC 34.3 RDW 15.1 H Plt Count 144 L Neut % (Auto) Not Reportable Lymph % (Auto) Not Reportable Ferry % (Auto) Not Reportable Eos % (Auto) Not Reportable Baso % (Auto) Not Reportable Lymph # (Auto) Not Reportable Ferry # (Auto) Not Reportable Baso # (Auto) Not Reportable Total Counted 100 Seg Neutrophils % 76.0 H Band Neutrophils % 5.0 Lymphocytes % (Manual) 5.0 L Monocytes % (Manual) 14.0 H Neutrophils # (Manual) 84300 H Platelet Estimate Decreased on smear Plt Morphology Comment RBC Morphology Normal morphology PT 14.0 H INR 1.2 APTT 27 ABG pH 7.44 ABG pCO2 33.7 L ABG pO2 115 H ABG HCO3 23 ABG Total CO2 24 ABG O2 Saturation 99 ABG Base Excess -1.0 FiO2 35 Sodium Potassium Chloride Carbon Dioxide BUN Creatinine Estimated GFR BUN/Creatinine Ratio Glucose Lactate Calcium Magnesium Total Bilirubin AST ALT Alkaline Phosphatase Total Creatine Kinase CK-MB (CK-2) CK-MB (CK-2) Rel Index Troponin I B-Natriuretic Peptide 268 H Total Protein Albumin Globulin Albumin/Globulin Ratio Procalcitonin 08/02/19 08/02/19 08/02/19 07:08 07:08 07:25 WBC RBC Hgb Hct MCV MCH MCHC RDW Plt Count Neut % (Auto) Lymph % (Auto) Ferry % (Auto) Eos % (Auto) Baso % (Auto) Lymph # (Auto) Ferry # (Auto) Baso # (Auto) Total Counted Seg Neutrophils % Band Neutrophils % Lymphocytes % (Manual) Monocytes % (Manual) Neutrophils # (Manual) Platelet Estimate Plt Morphology Comment RBC Morphology PT INR APTT ABG pH ABG pCO2 ABG pO2 ABG HCO3 ABG Total CO2 ABG O2 Saturation ABG Base Excess FiO2 Sodium 140 Potassium 4.6 Chloride 102 Carbon Dioxide 25 BUN 35 H Creatinine 1.00 Estimated GFR > 60.0 BUN/Creatinine Ratio 35.0 H Glucose 164 H Lactate 1.6 Calcium 8.8 Magnesium 2.2 Total Bilirubin 1.2 AST 33 ALT 29 Alkaline Phosphatase 122 Total Creatine Kinase 78 CK-MB (CK-2) TNP CK-MB (CK-2) Rel Index TNP Troponin I < 0.012 B-Natriuretic Peptide Total Protein 8.0 Albumin 4.3 Globulin 3.7 Albumin/Globulin Ratio 1.2 Procalcitonin 0.25 Assessment & Plan Assessment & Plan narrative: Mr. 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 1. Acute hypoxemic respiratory failure, present on admission -likely secondary to COPD exacerbation with possible underlying pneumonia. Other etiologies to be considered are congestive failure in the setting of new atrial flutter as his rate was 180 when he came in. His rate is currently controlled but he remains in a flutter. PaO2/FiO2 of 328 based on blood gas done in ED after EMS treatments. -continue ceftriaxone and azithromycin for possible community-acquired pneumonia -respiratory panel pending -given methylprednisolone 125 mg, continue prednisone 40 mg daily. - RT eval and treat - wean from BiPap, goal O2 88-92%. -patient appears euvolemic 2. Atrial flutter, acute, present on admission with rapid ventricular response-patient presented without initial heart rate of approximately 180, after adenosine rhythm was confirmed to be atrial flutter. He was given 10 of Dilt and then started on a diltiazem drip. Patient or family does not report history atrial fibrillation or atrial flutter. He also has a history of hemorr hagic stroke. Chads Vasc of 2 at this time. May be reactive to acute respiratory failure as well. Will need further discussion regarding anticoagulation, however given hemorrhagic stroke the risks likely outweigh the benefits in him. -obtain TTE -continue diltiazem infusion and change to oral medications when off of BiPAP -initial troponin negative, no EKG obtained in the emergency room will obtain 1 now 3. COPD with acute exacerbation -patient is on supplemental oxygen as needed at home. Currently requiring BiPAP therapy. -continue steroids, treat for possible underlying community-acquired pneumonia with antibiotics -attempt to wean from BiPAP -goal O2 88-92% 4. Community-acquired pneumonia -small perihilar infiltrate noted on chest imaging which may be fluid overload as well. Respiratory panel is pending, procalcitonin 0.25. Patient has been on Bactrim recently after his prior visit. He has a leukocytosis to 22, this may be reactive to the steroids that he has been receiving. Patient uses as needed supplemental oxygen at home. -follow-up respiratory panel and urine Legionella -continue ceftriaxone and azithromycin 5. Hyperlipidemia, chronic, stable -continue home Lipitor Code: Full Patient elects his surrogate decision maker as his Dispo: Admitted to ICU for respiratory failure requiring NIPPV with BiPAP and need for closer monitoring I spent 45 minutes providing critical care management this patient. This excludes time spent in performing separately billed procedures. Scores CHADS-VASc Congestive heart failure: no Hypertension: no Age 75 years or older: yes Diabetes mellitus: no Stroke, TIA, or TE: no Vascular disease: no Age 65 to 74 years: no Sex category (female): Male CHADS-VASc Score: 2
[2019-08-02] MEDS: AZITHROMYCIN 500 MG in DEXTROSE 5% IN WATER 250 ML IV (10:28)
--- NOTE | 2019-08-02 10:55 | DI.ECHO.S_ITS ---
[place] +---------+ [facility] +---------+ : : [address] : : : : [id number] : : : : Phone: [phone] Echocardiogram Report + + :Name: TRUONG STEVENS Study Date: 08/03/2019 Height: 72 in : :[facility] Exam Location: [facility] Weight: 160 lb : : Gender: Male BSA: 1.9 m2 : :: 1940 Age: 78 yrs BP: 130/76 mmHg: :Reason For Study: Atrial Flutter : :Ordering Physician: Alee : :Hospitalist Performed By: Charisse Nguyen : :Referring: DOLLY CHAU : + + Interpretation Summary Normal left ventricle size with ejection fraction 65-70%. No significant valvular abnormality Procedure: A two-dimensional transthoracic echocardiogram with color flow and Doppler was performed. Technically challening echocardiogram due to patient positioning and limited scanning windows. The patient was imaged while sitting upright. There is no prior echocardiogram noted for this patient. Left Ventricle: The left ventricle is normal in size. Left ventricular wall thickness is normal. The ejection fraction is estimated to be 65-70%. Septal motion is consistent with conduction abnormality. There are no other obvious focal wall motion abnormalities. Right Ventricle: The right ventricle grossly appears normal in size with probable normal systolic function. Atria: The left atrium is not well visualized. Right atrium not well visualized. Mitral Valve: The mitral valve is normal in structure and function. There is trace mitral regurgitation. Aortic Valve: The aortic valve is trileaflet. The aortic valve opens well. No aortic regurgitation is present. Tricuspid Valve: The tricuspid valve is normal in structure and function. There is mild tricuspid regurgitation. The right ventricular systolic pressure is estimated to be at least 32 mmHg based on an estimated right atrial pressure of 3 mm Hg. Pulmonic Valve: The pulmonic valve is not well visualized. Great Vessels: The ascending aorta could not be visualized. The IVC is of normal diameter and collapses greater than 50% with a sniff. This suggests a low right atrial pressure of 3 mm Hg. Pericardium/ Pleura There is no pericardial effusion. There is an anterior echo-free space consistent with a fat pad. There is no pleural effusion. MMode/2D Measurements & Calculations LVIDd: 4.9 cm LVOT diam: 2.0 cm LVIDs: 2.9 cm FS: 40.8 % IVSd: 0.66 cm LVPWd: 0.77 cm LV baez. diameter/BSA (cm/m^2): 2.5 LV sys. diameter/BSA (cm/m^2): 1.5 IVC diam: 2.0 cm Doppler Measurements & Calculations Ao V2 max: 123.8 cm/sec LVOT Max Contreras: 65.7 cm/sec Ao V2 mean: 84.3 cm/sec LV V1 max P.7 mmHg Ao max P.1 mmHg LV V1 VTI: 8.2 cm Ao mean P.2 mmHg FELICIANO(I,D): 1.7 cm2 Ao V2 VTI: 15.6 cm FELICIANO(V,D): 1.7 cm2 sev ratio: 0.53 FELICIANO indexed to BSA (cm^2/m^2): 0.86 MV E max contreras: 54.7 cm/sec TR max contreras: 266.9 cm/sec MV A max contreras: 31.4 cm/sec TR max P.5 mmHg MV E/A: 1.7 MV dec time: 0.18 sec SV(LVOT): 25.9 ml Electronically signed by: Effie Canales on Reading Physician:08/03/2019 03:41 PM
[2019-08-02] MEDS: LORazepam 2 MG/ML INJ 0.5 MG IV ×4 (11:18→21:20)
[2019-08-02 11:49] LABS: Adenovirus Not Detected (Not Detect); Bordetella pertussis Not Detected (Not Detect); Chlamydophila pneumoniae Not Detected (Not Detect); Coronavirus 229E Not Detected (Not Detect); Coronavirus HKU1 Not Detected (Not Detect); Coronavirus NL 63 Not Detected (Not Detect); Coronavirus OC43 Not Detected (Not Detect); Human Metapneumovirus Not Detected (Not Detect); Human Rhinovirus/Enterovirus Detected (Not Detect); Influenza A Not Detected (Not Detect); Influenza B Not Detected (Not Detect); Mycoplasma pneumoniae Not Detected (Not Detect); Parainfluenza Virus 1 Not Detected (Not Detect); Parainfluenza Virus 2 Not Detected (Not Detect); Parainfluenza Virus 3 Not Detected (Not Detect); Parainfluenza Virus 4 Not Detected (Not Detect); Respiratory Syncytial Virus Not Detected (Not Detect)
[2019-08-02] MEDS: FUROSEMIDE 40 MG/4 ML VIAL IV (12:30)
[2019-08-02] MEDS: HALOPERIDOL 5 MG/ML VIAL IV (12:40)
[2019-08-02] MEDS: ALBUTEROL 2.5 MG/3 ML NEB (ADULT) INH (12:40)
[2019-08-02 12:58] LABS: Appearance Urine UA SL CLOUDY; Bilirubin Urine UA NEGATIVE (NEGATIVE); Color Urine UA YELLOW; Glucose Urine UA NEGATIVE (Negative); Ketones Urine UA TRACE (NEGATIVE); Leukocyte Esterase Urine UA NEGATIVE (NEGATIVE); Nitrite Urine UA NEGATIVE (Negative); Occult Blood Urine UA TRACE-INTACT (Negative); Protein Urine UA 2+ (Negative); Specific Gravity Urine UA >=1.030 (1.000-1.035); Urobilinogen Urine UA 0.2 E.U./dL (0.2); pH Urine UA 5.5 (4.5-8.0)
[2019-08-02 13:11] LABS: Amorphous Sediment Urine 1+; RBC Urine 0-1/HPF (0-5/HPF); Squamous Epithelial Cell Urine 0-1 /HPF (0-5/HPF); WBC Urine 1-5/HPF (0-5/HPF)
[2019-08-02 13:14] LABS: Bacteria Urine Few (2-10); Culture Indicated Urine Specimen Cultured; Mucus Urine 1+ (Negative); Other Crystals Urine 2+
[2019-08-02 13:50] LABS: HCO3 ABG 22 mmol/L (22-26); PCO2 ABG 31.8 mmHg (35-45); PO2 ABG 62 mmHg (80-100); pH ABG 7.44 (7.35-7.45)
[2019-08-02 13:51] LABS: Fractionated Inspired Oxygen 30; Oxygen Saturation ABG 93 % (95-100); TCO2 ABG 22 mmol/L (21-31)
[2019-08-02] MEDS: DILTIAZEM 125 MG/125 ML PIGGYBACK 15 MG IV (16:40)
--- NOTE | 2019-08-02 21:49 | PC.NURSE ---
Addendum entered by Janeth Barnes R.N. 08/02/19 22:08: 2200- Patient medicated per order. Respirations in the mid 30's and coarse throughout. Respiratory called for a treatment. Will monitor. Original Note: 2129- Patient agitated and pulling at his Bipap mask and lines. Medicated per order. Yang LYONS notified orders rec. Will monitor.
[2019-08-02] MEDS: OLANZapine ODT 10 MG TAB PO (21:58)
[2019-08-03] VITALS (15 sets, daily range): BP systolic 120–135; BP diastolic 64–84; PULSE 91–114; RESP 12–36; TEMP 30.2–37.4; O2SAT 92–100
[2019-08-03] MEDS: DILTIAZEM 125 MG/125 ML PIGGYBACK 15 MG IV ×4 (00:20→23:18)
[2019-08-03] MEDS: ALBUTEROL/IPRATROPIUM 3 ML AMPUL INH ×5 (02:47→19:00)
[2019-08-03 05:09] LABS: BUN Creatinine Ratio 37.7 (6-22); Blood Urea Nitrogen 49 mg/dL (9-20); Calcium 9.2 mg/dL (8.4-10.2); Carbon Dioxide 29 mmol/L (22-32); Chloride 102 mmol/L (98-107); Estimated Glomerular Filt Rate 53.3 mL/min (>60); Glucose 199 mg/dL (80-110); HEMOLYSIS < 15 (0-50); Magnesium 2.8 mg/dL (1.6-2.3); Potassium 4.9 mmol/L (3.4-5.1); Sodium 141 mmol/L (137-145)
[2019-08-03 05:19] LABS: Hematocrit 46.5 % (41-53); Hemoglobin 15.5 g/dL (13.5-17.5); Mean Corpuscular HGB Conc 33.4 % (30-36); Mean Corpuscular Hemoglobin 29.6 PG (26-34); Mean Corpuscular Volume 88.6 fL (80-100); Platelet Count 152 X10^3/uL (150-400); Red Blood Cell Count 5.24 X10^6/uL (4.5-5.9); Red Cell Distribution Width 15.3 % (11.6-14.8)
[2019-08-03 05:20] LABS: Add Manual Diff / Slide Review YES
[2019-08-03 05:37] LABS: Free T4, Direct Thyroxine 1.38 ng/dL (0.78-2.19)
[2019-08-03 05:38] LABS: B Type Natriuretic Peptide < 100 (<100)
[2019-08-03 05:50] LABS: Thyroid Stimulating Hormone 2.84 uIU/mL (0.47-4.68)
[2019-08-03 06:34] LABS: Neutrophils Absolute Manual 9480 /uL (3000-5900); Total Cells Counted 100
[2019-08-03 06:37] LABS: RBC Morphology Normal Morphology
--- NOTE | 2019-08-03 06:52 | PC.NURSE ---
Pt. is responsive to touch and pain, unable to assess LOC as pt. is non verbal. Pt. on Bipap at 30% FI02 which was turned down around 5am since pt. 02 sats has been in the high 90's to 100%, lungs with ins/exp wheezes. Diltiazem gtt remains at 15mg/hr and heart rate remains aflutter mostly in the 90's. Pt. is afebrile. UO per jones is 250 ml. Will continue with treatment.
[2019-08-03] MEDS: CEFTRIAXONE 1 GM/50 ML FROZ.PIGGY IV (09:20)
[2019-08-03] MEDS: ENOXAPARIN 40 MG/0.4 ML SYRINGE SUBCUT (09:20)
--- NOTE | 2019-08-03 10:38 | PM.PN.1 ---
Subjective Subjective Date Patient Seen: 08/03/19 Time Patient Seen: 10:38 Interval history: He is seen today to follow up the COPD, sundowning agitation, pneumonia and atrial flutter. He has required some sedation overnight with a lens a Pean due to restlessness. This makes him quite sedated during my visit. His TSH was normal and he does not appear to be on current thyroid treatment. He does have a Cottrell catheter in place which will need to be removed soon. Tentative discharge in 1-2 days is discussed with his today per Exam Vital Signs (past 8 hours): - 08/03/19 04:25 08/03/19 05:58 08/03/19 07:35 Temperature 97.2 F L 98.2 F 97.6 F Pulse Rate 93 H 95 H Respiratory Rate 25 H 24 Blood Pressure 120/69 132/73 Pulse Oximetry 100 100 Fraction of Inspired Oxygen 24 Oxygen Delivery Method BiPAP Narrative Exam Narrative: He is asleep during my visit and does not wake up with the exam or with the conversation that I attempt to have with him and the conversation that I have with his who is resting in the chair next to his bed. He has required olanzapine sedation over night due to prolonged and severe restlessness. Heart is regular rate and rhythm without murmur. Lungs have wheezes bilaterally. Extremities have no ankle edema. There are extensive old bruises on his arms. He has a Cottrell catheter inserted. Objective Labs Result Diagrams: 08/03/19 04:40 08/03/19 04:40 Labs: Laboratory Results - last 24 hr 08/02/19 08/02/19 08/02/19 09:10 09:30 12:51 WBC RBC Hgb Hct MCV MCH MCHC RDW Plt Count Neut % (Auto) Lymph % (Auto) [place] % (Auto) Eos % (Auto) Baso % (Auto) Lymph # (Auto) [place] # (Auto) Baso # (Auto) Total Counted Seg Neutrophils % Band Neutrophils % Lymphocytes % (Manual) Monocytes % (Manual) Neutrophils # (Manual) RBC Morphology ABG pH ABG pCO2 ABG pO2 ABG HCO3 ABG Total CO2 ABG O2 Saturation ABG Base Excess FiO2 Sodium Potassium Chloride Carbon Dioxide BUN Creatinine Estimated GFR BUN/Creatinine Ratio Glucose Calcium Magnesium B-Natriuretic Peptide TSH Free T4 Urine Color Yellow Urine Appearance Sl cloudy Urine pH 5.5 Ur Specific [place] >=1.030 H Urine Protein 2+ H Urine Glucose (UA) Negative Urine Ketones Trace H Urine Occult Blood Trace-intact Urine Nitrate Negative Urine Bilirubin Negative Urine Urobilinogen 0.2 Ur Leukocyte Esterase Negative Urine RBC 0-1/hpf Urine WBC 1-5/hpf Ur Squamous Epith Cells 0-1 /hpf Other Crystals 2+ Amorphous Sediment 1+ Urine Bacteria Few (2-10) H Urine Mucus 1+ H Ur Culture Indicated? Specimen cultured Nasal Screen MRSA (PCR) Negative for mrsa Chlamy pneumoniae PCR Not detected Adenovirus (PCR) Not detected B.parapertussis DNA PCR Not detected Coronavirus OC43 (PCR) Not detected Coronavirus HKU1 (PCR) Not detected Coronavirus 229E (PCR) Not detected Coronavirus NL63 (PCR) Not detected Human Metapneumovir PCR Not detected Influenza Type A (PCR) Not detected Influenza Type B (PCR) Not detected M. pneumoniae (PCR) Not detected Parainfluenza 1 (PCR) Not detected Parainfluenza 2 (PCR) Not detected Parainfluenza 3 (PCR) Not detected Parainfluenza 4 (PCR) Not detected RSV (PCR) Not detected Entero/Rhino (PCR) Detected H 08/02/19 08/03/19 08/03/19 13:32 04:40 04:40 WBC 12.0 H RBC 5.24 Hgb 15.5 Hct 46.5 MCV 88.6 MCH 29.6 MCHC 33.4 RDW 15.3 H Plt Count 152 Neut % (Auto) Not Reportable Lymph % (Auto) Not Reportable [place] % (Auto) Not Reportable Eos % (Auto) Not Reportable Baso % (Auto) Not Reportable Lymph # (Auto) Not Reportable [place] # (Auto) Not Reportable Baso # (Auto) Not Reportable Total Counted 100 Seg Neutrophils % 77.0 H Band Neutrophils % 2.0 L Lymphocytes % (Manual) 14.0 L Monocytes % (Manual) 7.0 Neutrophils # (Manual) 9480 H RBC Morphology Normal morphology ABG pH 7.44 ABG pCO2 31.8 L ABG pO2 62 L ABG HCO3 22 ABG Total CO2 22 ABG O2 Saturation 93 L ABG Base Excess -3.0 L FiO2 30 Sodium 141 Potassium 4.9 Chloride 102 Carbon Dioxide 29 BUN 49 H Creatinine 1.30 H Estimated GFR 53.3 L BUN/Creatinine Ratio 37.7 H Glucose 199 H Calcium 9.2 Magnesium 2.8 H B-Natriuretic Peptide < 100 TSH Free T4 Urine Color Urine Appearance Urine pH Ur Specific [place] Urine Protein Urine Glucose (UA) Urine Ketones Urine Occult Blood Urine Nitrate Urine Bilirubin Urine Urobilinogen Ur Leukocyte Esterase Urine RBC Urine WBC Ur Squamous Epith Cells Other Crystals Amorphous Sediment Urine Bacteria Urine Mucus Ur Culture Indicated? Nasal Screen MRSA (PCR) Chlamy pneumoniae PCR Adenovirus (PCR) B.parapertussis DNA PCR Coronavirus OC43 (PCR) Coronavirus HKU1 (PCR) Coronavirus 229E (PCR) Coronavirus NL63 (PCR) Human Metapneumovir PCR Influenza Type A (PCR) Influenza Type B (PCR) M. pneumoniae (PCR) Parainfluenza 1 (PCR) Parainfluenza 2 (PCR) Parainfluenza 3 (PCR) Parainfluenza 4 (PCR) RSV (PCR) Entero/Rhino (PCR) 08/03/19 04:40 WBC RBC Hgb Hct MCV MCH MCHC RDW Plt Count Neut % (Auto) Lymph % (Auto) [place] % (Auto) Eos % (Auto) Baso % (Auto) Lymph # (Auto) [place] # (Auto) Baso # (Auto) Total Counted Seg Neutrophils % Band Neutrophils % Lymphocytes % (Manual) Monocytes % (Manual) Neutrophils # (Manual) RBC Morphology ABG pH ABG pCO2 ABG pO2 ABG HCO3 ABG Total CO2 ABG O2 Saturation ABG Base Excess FiO2 Sodium Potassium Chloride Carbon Dioxide BUN Creatinine Estimated GFR BUN/Creatinine Ratio Glucose Calcium Magnesium B-Natriuretic Peptide TSH 2.84 Free T4 1.38 Urine Color Urine Appearance Urine pH Ur Specific [place] Urine Protein Urine Glucose (UA) Urine Ketones Urine Occult Blood Urine Nitrate Urine Bilirubin Urine Urobilinogen Ur Leukocyte Esterase Urine RBC Urine WBC Ur Squamous Epith Cells Other Crystals Amorphous Sediment Urine Bacteria Urine Mucus Ur Culture Indicated? Nasal Screen MRSA (PCR) Chlamy pneumoniae PCR Adenovirus (PCR) B.parapertussis DNA PCR Coronavirus OC43 (PCR) Coronavirus HKU1 (PCR) Coronavirus 229E (PCR) Coronavirus NL63 (PCR) Human Metapneumovir PCR Influenza Type A (PCR) Influenza Type B (PCR) M. pneumoniae (PCR) Parainfluenza 1 (PCR) Parainfluenza 2 (PCR) Parainfluenza 3 (PCR) Parainfluenza 4 (PCR) RSV (PCR) Entero/Rhino (PCR) Assessment & Plan Assessment & Plan narrative: Mr. 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 1. Acute hypoxemic respiratory failure, present on admission - secondary to COPD exacerbation with possible underlying pneumonia. Other etiologies to be considered are congestive failure in the setting of new atrial flutter as his rate was 180 when he came in. His rate is currently controlled but he remains in a flutter. -continue ceftriaxone and azithromycin for community-acquired pneumonia -respiratory panel positive for Rhinovirus -given methylprednisolone 125 mg initially, continue prednisone 40 mg daily. - RT following - wean from BiPap, goal O2 88-92%. - I suggested, when his asked, that discharge would be dependent on weaning from BiPAP, perhaps as soon as tomorrow per 2. Atrial flutter, acute, present on admission with rapid ventricular response-patient presented with initial heart rate of approximately 180, after adenosine rhythm was confirmed to be atrial flutter. He was given 10 of Dilt and then started on a diltiazem drip. Patient or family does not report history atrial fibrillation or atrial flutter. He also has a history of hemorrhagic stroke. Chads Vasc of 2 at this time. May be reactive to acute respiratory failure as well. Will need further discussion regarding anticoagulation, however given hemorrhagic stroke the risks likely outweigh the benefits in him. -obtain TTE -continue diltiazem infusion and change to oral medications when off of BiPAP -initial troponin negative 3. COPD with acute exacerbation -patient is on supplemental oxygen as needed at home. Currently requiring BiPAP therapy. -continue steroids, treat for possible underlying community-acquired pneumonia with antibiotics -attempt to wean from BIPAP today/tonight. -goal O2 88-92% 4. Community-acquired pneumonia -small perihilar infiltrate noted on chest imaging which may be fluid overload as well. Respiratory panel was Rhinovirus positive, procalcitonin 0.25. Patient has been on Bactrim recently after his prior visit. He had a leukocytosis to 22 now down to 12, this may be reactive to the steroids that he has been receiving. Patient uses as needed supplemental oxygen at home. 5. Hyperlipidemia, chronic, stable -continue home Lipitor Remove Cottrell Catheter tomorrow Use Olanzapine/HS sedation sparingly Code: Full Patient elects his surrogate decision maker as his
[2019-08-03] MEDS: AZITHROMYCIN 500 MG in DEXTROSE 5% IN WATER 250 ML IV (11:11)
--- NOTE | 2019-08-03 11:37 | PC.NURSE ---
Addendum entered by Vannessa Beck R.N. 08/03/19 15:42: Pt did well with PO lunch. 50% eaten. Verbal, and conversive at end of shift. Lungs remain coarse, exp wheeze and dim. 0.5L NC in place and off bipap all shift. Addendum entered by Vannessa Beck R.N. 08/03/19 11:54: Per Speech puree texture and thin liquids with asp precautions per recommendations. Monitor for fatigue. Original Note: Am shift Pt wakes to touch, at bedside. Reports apagia at baseline r/t CVA within last 5 years. Weak cough noted, Pt unable to follow instructions to assess swallow, drowsy. Discussed rationale, and swallow eval ordered for safety. Oral care provided. Dilt gtt @ 15 , Aflutter, 4:1, no s/sx pain, falling asleep during assessment, but mostly non verbal with this RN. is able to answer questions that Pt has not. Await speech eval for Pt today.
--- NOTE | 2019-08-03 11:42 | ST.IPCSEOM ---
Visit Care Team Role Provider Type Yogesh Stoddard MD Primary Care Provider Physician Specialty: Internal Medicine Address: [address] [place] [address], [address], [place], [address] Email: [email or web address] Rosa Elena Gregorio MD Emergency Provider Physician Specialty: Emergency Medicine Address: [address] [place] [address], [id number] Email: [email or web address] Ishmael Hernandez DO Admit Provider Physician Attending Provider Specialty: Internal Medicine Address: [address] [place] [address], [id number] Email: [email or web address] Past Medical History (Last Reviewed 08/02/19 @ 08:43 by Rosa Elena Gregorio MD) COPD (chronic obstructive pulmonary disease) (Chronic Medical ~1999) Dementia (Chronic Medical ~2014) Possibly related to stroke Hypothyroidism (Chronic Medical) Melanoma (Chronic Medical ~2015) Stroke (Inactive Medical ~2014) Possibly related to dementia Speech-Language Pathology Swallow Evaluation CONFERENCE SERVICES DIRECTOR Clinical Swallow Evaluation Start: 08/03/19 11:12 Freq: Status: Active Protocol: Document 08/03/19 11:12 MG (Rec: 08/03/19 11:42 MG [id number]) Clinical Swallow Evaluation Session Time Visit Start Time 10:30 Visit Stop Time 11:00 Total Visit Minutes 30 Visit Information Visit Number 1 Setting Assessment Location Acute Care Visit Type Note Type Initial Evaluation Next Note Type Next Note Type Treatment Note Patient Information Identification Type Name,ID Wristband History Pt is a 78-year-old male with past medical history of COPD ( on as needed supplemental O2 at home), hyperlipidemia, and 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 Current symptoms started yesterday evening which he reports as constant shortness of breath requiring persistent supplemental oxygen at home. He presented to the emergency room approximately 5 days ago with similar symptoms, but yesterday his symptoms were worse than previous. He did not fully improve as far as his breathing an he is also been having nasal congestion and runny nose. He reports a high fever prior to the 1st ER visit, and consistent chills since. He attempted home nebulizers but when this did not improve he decided to come to the emergency room. He reports entire family has been sick with cold symptoms including nasal congestion, runny nose, and cough. He did receive his flu shot this year. He called EMS, who gave a nebulizer EN route and was placed on CPAP. He was switched to BiPAP in the emergency room, given further nebulizer treatments, as well as steroids. His vitals were notable for a heart rate around 180 on telemetry, he was given adenosine which revealed an atrial flutter rhythm. He was given IV Dilt and then started on a diltiazem drip with improved rate control. He was transferred to the ICU on BiPAP therapy. In the ICU, telemetry revealed atrial flutter rhythm with a tachycardic rate in the 100s, he is tachypneic in the upper 20s to 30s and on high inspiratory and expiratory pressures. Pressures were decreased as was oxygen as patient was satting around 97% . Patient now on BiPAP of 10/ 5 at 30% O2 and saturating in the mid to low 90s. Subjective Observations CONFERENCE SERVICES DIRECTOR entered room to find pt was asleep. CONFERENCE SERVICES DIRECTOR and family was able to wake him up and get him alert to participate in the evaluation. CONFERENCE SERVICES DIRECTOR noted throughout the evaluation he began to fatigue. Pt did not have upper dentals. Pt's family reported that he has top dentures, but did not have them at the hospital. Evaluation Liquids Trialed Ice Chips,Thin Solids Trialed Puree Administration Type Tea Spoon,Dependent Feeding Oral Impairment Moderately Impaired Oral Strategies Upright at 90 degrees, Controlled Bite/Sip Size Oral Phase Comments Pt does not have top teeth, therefore impeding his ability to masticate solids. Top dentures are not present at the hospital. Lip closure and jaw movement appeared within functional limits at this time . Informal OME noted reduced mastication time most likely due to weakness and missing his dentures. On all trials, pt cleared liquids and solids from his oral cavity. Pharyngeal Impairment Moderately Impaired Pharyngeal Strategies Sitting Upright (90 deg), Double Swallow,Effortful Swallow,Small Bites and Sips Pharyngeal Phase Comments Palpation of the larnyx indicated reduced hyolarngeal movement as well as reduced anterior excursion of the hyoid bone, most likely due to age and weakness. On all trials, pt was noted to use double swallows and appeared to effectively swallow on all trials. Pt was alert at the beginning of the evaluation, however as trials continued it was noted he was fatiguing. No overt s/sx of aspiration noted. No immediate or delayed cough, O2 levels remained stable, and voice was not wet/ gurgly after swallow. Intermittent coughing was noted throughout evaluation which may be a result of his sickness. Pt's family reported that he has been coughing on and off duet to being sick. Pt 's family reported that he has a regular diet and thin liquids at home with no reported problems. Findings Dysphagia Type Oropharyngeal dysphagia Rehabilitation Potential Good Impressions Pt has oropharyngeal dysphagia as noted by reduced strength and missing top dentures. Pt did not show any s/sx of aspiration on all trials presented. When pt is alert, he used the double swallow strategy which appears to be effective for him. Diet Recommendations Liquids Order Thin Diet Order Dysphagia Blenderized Medication Recommendations As Tolerated,Crushed in Carrier Additional Dietary Needs Single Sips,No Straws,1:1 Assistance,Encourage to Self- Feed Aspiration Precautions Recommended Precautions Upright at 90 Degrees,Frequent Rest Periods,Small Bites/Sips ,Double Swallow,Liquids from Spoon Additional Precautions Make sure pt is awake and alert when eating. Treatment Plan Placement Recommendations after Home Discharge Appropriate for Therapy Yes Therapy Recommendations CONFERENCE SERVICES DIRECTOR will check in with pt and his family to monitor diet recommendations as well as provide education about swallowing. Dysphagia Goals Pt will tolerate least restrictive diet and continue to show no s/sx of aspiration. CONFERENCE SERVICES DIRECTOR Follow Up x1
--- NOTE | 2019-08-03 15:19 | CM.DANOTE ---
Discharge Planning/Care Management DCP: assessment: case received and discussed in Team Rounds. Dr. Colby noted that pt had been extremely agitated and restless yesterday and overnight which led to necessity for sedation. (antipsychotic: olanzapine) ASSEMBLER FILTERS did see pt. OT and PT have not yet been involved. Pt is a 78 year old male who admitted yesterday to care of hospitalist team. Review of IH hx shows that pt sees PCP: Dr. Yogesh Stoddard and his first visit to establish care was on 06/28/19 with his daughter present during the visit. Payer: Medicare and [facility] Note that pt has a history of a CVA resulting in some speech deficits. He is on home 02 prn which is a recent development. Has hx of COPD Went to room to check in with pt and to see if family was there. Noted pt on DROPLET PRECAUTIONS. (Serology : + entero rhinovirus) and a family member was present and currently using pt's bathroom. ICU was at shift changed and very crowded..as pt will be here a few days, per Dr. Colby, decision made to check in again tomorrow with pt's Kia and or daughter Briseida Emanuel to obtain more information re pt's overall PLF and discuss d/c issues and options. Advanced directive, confirm from FAMILY Start: 08/02/19 09:58 Freq: Q24H Status: Active Protocol: Document 08/02/19 09:58 YOSELYN (Rec: 08/02/19 10:16 YOSELYN [id number]) Advance Directive, confirm on record Time 10:16 Person contacted Copy received No CM Discharge Assessment Start: 08/03/19 15:14 Freq: Status: Active Protocol: Document 08/03/19 15:15 ITV (Rec: 08/03/19 15:18 ITV [id number]) Discharge Planning Assessment Advance Directives? Yes History Provided By Medical Record Has Patient been admitted in last 30 No days? Prior Living Arrangements House Household Members spouse Is patient alert and oriented? No: unclear at this time Comment Pt currently on droplet precautions. + for entero rhino virus Review Status In Process
[2019-08-03] MEDS: MEMANTINE HCL 5 MG TABLET 10 MG PO (17:02)
[2019-08-03] MEDS: predniSONE 20 MG TABLET 40 MG PO (17:02)
[2019-08-03 17:12] LABS: Acinetobacter baumannii Not Detected (Not Detect); Enterobacteriaceae species Not Detected (Not Detect); Enterococcus species Not Detected (Not Detect); Listeria monocytogenes Not Detected (Not Detect); Staphylococcus species Not Detected (Not Detect); Streptococcus agalactiae (Gr B Not Detected (Not Detect); Streptococcus pneumonia Not Detected (Not Detect); Streptococcus pyogenes (Gr A) Not Detected (Not Detect); Streptococcus species Not Detected (Not Detect)
--- NOTE | 2019-08-03 17:12 | PC.NURSE ---
Addendum entered by Janeth Barnes R.N. 08/03/19 23:17: 2130- Cottrell catheter removed as patient is pulling on it and seems very agitated by it. No plan to medicate at patient appears to have delerium. Plan for 1:1 sitter to keep patient safe. Addendum entered by Janeth Barnes R.N. 08/03/19 19:42: 1930- Patient remains restless and continues to try and get oob. Family is at bedside. Heart rate is now AFlutter RVR rate 107 to 130's. Patient is requiring constant supervision for safety due to agitation and impulsiveness. Call out to MD. Addendum entered by Janeth Barnes R.N. 08/03/19 18:29: 1815- Patient calling out respirations 40 and very labored. Patient is agitated and unable to follow direction. Dr. Colby notified and patient medicated per order. Addendum entered by Janeth Barnes R.N. 08/03/19 17:57: 1730- Patient is increasingly more agitated. He attempted to get oob but became too SOB to make it all the way out. Bed alarm is on. Patient is very impulsive and forgetful. CORN MILLER outside of room for safety. 02 at 2 liters cannula started to keep saturations greater than 92%. Will monitor. Original Note: 1700- Patient assisted to the bathroom. He developed respiratory distress with walking the short distance to the toilet. Patient assisted back to bed and given a breathing treatment. His respirations were 40 and he was audibly wheezing. Distress relieved after about ten minutes. Patient is back to baseline now.
[2019-08-03 17:13] LABS: Candida albicans Not Detected (Not Detect); Candida glabrata Not Detected (Not Detect); Candida krusei Not Detected (Not Detect); Candida parapsilosis Not Detected (Not Detect); Candida tropicalis Not Detected (Not Detect); E. coli Not Detected (Not Detect); Enterobacter cloacae complex Not Detected (Not Detect); Haemophilus influenzae Not Detected (Not Detect); Neisseria meningitidis Not Detected (Not Detect); Proteus species Not Detected (Not Detect); Pseudomonas aeruginosa Not Detected (Not Detect); Serratia marcescens Not Detected (Not Detect)
[2019-08-03] MEDS: LORazepam 2 MG/ML INJ 0.5 MG IV (17:47)
[2019-08-03] MEDS: OLANZapine ODT 10 MG TAB PO (18:15)
--- NOTE | 2019-08-03 19:13 | RT ---
Called for breathing treatment. Arrived to room to find patient tachypneic with audible wheezes. Upon auscultation, found bases to be crackly and the source of the wheezing to be from the upper airway. Patient has a new onset of atrial flutter and is currently in this rhythmn. Patient has not had Lasix today. Breathing treatment gave no improvement to these symptoms. Spoke with HECTOR Fowler about my findings. She is placing a call to .
--- NOTE | 2019-08-03 22:40 | PM.EVENT ---
Event Note Date Patient Seen: 08/03/19 Time Patient Seen: 21:10 Event Note: Mr. Jose Bradshaw a 78-year-old male patient who was admitted to the hospital on 08/02 following presentation for shortness of breath and diagnosed with exacerbation COPD and found to be positive for rhino virus. Assessed to recheck the patient increased agitation. The patient has a history dementia following hemorrhagic CVA. He additionally has a history reported by family members sundowning on previous admissions. The patient has received olanzapine 10 mg ODT and has also received lorazepam 0.5 mg IV. At this time the patient is saturating adequately on nasal cannula oxygen with goal of 88-92%. He is tachypneic at upper 20s to 30s related to agitation. He has central congestion which clears with cough. His speech is garbled and he is disoriented to place situation and time. Acute delirium -patient's acute delirium related to steroid therapy and benzodiazepines. -he has received olanzapine with a protracted half life, no additional medication is indicated. -requested sitter to remain with patient, reoriented to situation surroundings as needed -ordered melatonin 6 mg for promoting sleep. -patient is hemodynamically stable the remains in atrial flutter on diltiazem drip at 15.
[2019-08-03] MEDS: MELATONIN 3 MG TABLET 6 MG PO (23:17)
[2019-08-04] VITALS (20 sets, daily range): BP systolic 105–151; BP diastolic 54–73; PULSE 88–133; RESP 23–40; TEMP 36.6–37.2; O2SAT 90–97
[2019-08-04] MEDS: ALBUTEROL/IPRATROPIUM 3 ML AMPUL INH ×5 (00:34→20:54)
--- NOTE | 2019-08-04 05:02 | PC.NURSE ---
Pt. so far responded well to Melatonin po, has been sleeping but did have episodes of frequent cough. Hospitalist called and got order for [place] but not given since pt. already was sound asleep. 02 titrated down from 3L NC to now 1L to keep sats bet. 88-92%. Noted pt. to be mouth breathing when asleep so cannula placed in the mouth to keep adequate and accurate 02 sats. Lung sounds still has fine ronchi but seems to be coming from upper airways, continue to monitor and treat.
[2019-08-04] MEDS: AZITHROMYCIN 500 MG in DEXTROSE 5% IN WATER 250 ML IV (10:00)
--- NOTE | 2019-08-04 11:28 | P.PN_ITS ---
Subjective Subjective Date Patient Seen: 08/04/19 Time Patient Seen: 11:28 Interval history: He is seen today to follow-up the atrial flutter with variable rapid ventricular response, COPD exacerbation and dementia/sundowning. Overnight he has been on Ativan for his agitation which apparently is not unusual for his daughter. He was apparently sundowning at home before this hospitalization. His diltiazem drip continues at 15 milligrams/hour and he is slowly today becoming able to take by mouth so that will be changed to oral. His telemetry continues to show generally a 4-1 atrial flutter. Exam Vital Signs (past 8 hours): - 08/04/19 04:02 08/04/19 05:00 08/04/19 06:03 Temperature 98.6 F Pulse Rate 98 H 95 H 94 H Respiratory Rate 23 27 H 23 Blood Pressure 108/67 105/73 113/66 Pulse Oximetry 93 91 90 L 08/04/19 06:53 08/04/19 07:00 08/04/19 08:00 Temperature 98.2 F Pulse Rate 95 H 88 95 H Respiratory Rate 28 H 30 H 28 H Blood Pressure 110/55 L 121/68 Pulse Oximetry 93 94 92 08/04/19 09:01 08/04/19 09:59 08/04/19 10:00 Temperature Pulse Rate 92 H 95 H 95 H Respiratory Rate 28 H 32 H 30 H Blood Pressure 151/71 H 130/54 L Pulse Oximetry 93 93 90 L Fraction of Inspired Oxygen 24 Oxygen Delivery Method Nasal Cannula Oxygen Flow Rate 1 Narrative Exam Narrative: He is confused and appears sedated. No apparent distress Mild wheezes on lung exam Heart is regular rate and rhythm with frequent early beats no murmur Extremities have no ankle edema Objective Labs Result Diagrams: 08/03/19 04:40 08/03/19 04:40 Labs: Laboratory Results - last 24 hr 08/02/19 09:30 A. baumannii (PCR) Not detected Sharmin albicans (PCR) Not detected C. glabrata (PCR) Not detected C. krusei (PCR) Not detected C. parapsilosis (PCR) Not detected C. tropicalis (PCR) Not detected Enterobacteriac sp PCR Not detected E. cloacae complex PCR Not detected Enterococcus sp PCR Not detected E. coli (PCR) Not detected H. influenzae (PCR) Not detected Klebsiella oxytoca PCR Not detected Klebsiella pneumoniae Not detected List. monocytogenes PCR Not detected N. meningitidis (PCR) Not detected Proteus species (PCR) Not detected Serratia marcescens PCR Not detected Staphylococcus sp PCR Not detected Staph aureus (PCR) Not detected mecA-Methicil Res Gene Not Reportable Streptococcus sp PCR Not detected Group A Strep (PCR) Not detected Strep agalactiae (PCR) Not detected Strep pneumoniae (PCR) Not detected P. aeruginosa (PCR) Not detected Aquiles/B-Vanco Res Genes Not Reportable KPC-Carbap Res Gene PCR Not Reportable Assessment & Plan Assessment & Plan narrative: Mr. 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 1. Acute hypoxemic respiratory failure, present on admission - secondary to COPD exacerbation with possible underlying pneumonia. Other etiologies to be considered are congestive failure in the setting of new atrial flutter as his rate was 180 when he came in. His rate is currently controlled but he remains in a flutter. -continue ceftriaxone and azithromycin for community-acquired pneumonia -respiratory panel positive for Rhinovirus -given methylprednisolone 125 mg initially, continue prednisone 40 mg daily. - RT following - wean from BiPap, goal O2 88-92%. - I suggested, when his asked, that discharge would be dependent on weaning from BiPAP, perhaps as soon as tomorrow. 2. Atrial flutter, acute, present on admission with rapid ventricular response- patient presented with initial heart rate of approximately 180, after adenosine rhythm was confirmed to be atrial flutter. He was given 10 of Dilt and then started on a diltiazem drip. Patient or family does not report history atrial fibrillation or atrial flutter. He also has a history of hemorrhagic stroke. Chads Vasc of 2 at this time. May be reactive to acute respiratory failure as well. Will need further discussion regarding anticoagulation, however given hemorrhagic stroke the risks likely outweigh the benefits in him. -obtain TTE -continue diltiazem infusion and change to oral medications when off of BiPAP -initial troponin negative 3. COPD with acute exacerbation -patient is on supplemental oxygen as needed at home. Currently requiring BiPAP therapy. -continue steroids, treat for possible underlying community-acquired pneumonia with antibiotics -attempt to wean from BIPAP today/tonight. -goal O2 88-92% 4. Community-acquired pneumonia -small perihilar infiltrate noted on chest imaging which may be fluid overload as well. Respiratory panel was Rhinovirus positive, procalcitonin 0.25. Patient has been on Bactrim recently after his prior visit. He had a leukocytosis to 22 now down to 12, this may be reactive to the steroids that he has been receiving. Patient uses as needed supplemental oxygen at home. 5. Hyperlipidemia, chronic, stable -continue home Lipitor Remove Cottrell Catheter tomorrow, begin PT to discharge planning Use Olanzapine/HS sedation sparingly Code: Full Patient elects his surrogate decision maker as his
[2019-08-04] MEDS: ENOXAPARIN 40 MG/0.4 ML SYRINGE SUBCUT (12:27)
[2019-08-04] MEDS: CEFTRIAXONE 1 GM/50 ML FROZ.PIGGY IV (12:28)
--- NOTE | 2019-08-04 14:13 | PC.NURSE ---
Addendum entered by Vannessa Beck R.N. 08/04/19 15:11: Pt is pretty drowsy after speech and getting up OOB with staff today. Will start Po dilt once Pt is more alert. Original Note: AM shift Pt is cooperative and calm this shift. IV infiltrated. Precision midline dual lumen placed to LUE, as Pt remains a challenging stick with multiple IV's that are incompatible. Pt able to get up OOB and void with urinal this shift, FWW 1-2PA. Cooperative with care, follows directions, slight delay to speech, per baseline. Dilt gtt @ 15, General weakness r/t current illness. Spo2 88-95% Can't quite tolerate RA, SOB with any activity. Update to family.
--- NOTE | 2019-08-04 14:20 | SLP.IPNOTE ---
Attempted dysphagia treatment but pt was sleeping and did not awaken to voice and touch. Will maintain current puree diet and continue to follow pt.
[2019-08-04] MEDS: DILTIAZEM 125 MG/125 ML PIGGYBACK 15 MG IV (14:30)
--- NOTE | 2019-08-04 15:41 | CM.DPC ---
DCP: continued. Case discussed in Team Rounds with Dr. Colby noting continuation of the delirium process in the geneva and night hours. Pt today as been calmer and seems a bit improved. Have spoken now by phone with pt's daughter Briseida Emanuel after obtaining her correct cell number from her who is at the family's home. Correct number: [phone]. Briseida and her mother are on their way now back to [place]. Made appt to see them tomorrow at 1130 to discuss d/c issues and options and obtain more clarity re pt's actual baseline function and cognitive status. They both readily agree to meet outside of the ICU setting and will come up to the second floor. Plan to meet in waiting room elevator service technician coordinator's office, whatever is available and private. Willl update Dr. Colby tomorrow in Team Rounds and be following accordingly.
[2019-08-04] MEDS: MEMANTINE HCL 5 MG TABLET 10 MG PO (16:43)
[2019-08-04] MEDS: dilTIAZem CD 240 MG CAP PO (16:43)
[2019-08-04] MEDS: DILTIAZEM 125 MG/125 ML PIGGYBACK 10 MG IV (19:32)
[2019-08-04] MEDS: TAMSULOSIN 0.4 MG CAPSULE PO (20:31)
[2019-08-04] MEDS: guaiFENesin ER 600 MG TAB PO (20:32)
[2019-08-04] MEDS: MELATONIN 3 MG TABLET 6 MG PO (20:32)
[2019-08-04] MEDS: ATORVASTATIN 20 MG TABLET 80 MG PO (20:34)
--- NOTE | 2019-08-04 21:10 | PC.NURSE ---
2100- Patient given po cardizem 240 CD at 1700 hr. Diltiazem is turned down at 2000to 10ml/hr. Rate remains intermittedly above 100. Yang GAS ENGINE MECHANIC aware and wants to continue titration to off if possible. Patient straight cathed at 1800hr for 600ml cathy urine. Patient was voiding only 10-20cc at a time and bladder looked distended. Patient stood at bedside to try and facilitate flow but patient was still unable to void. Straight cath order obtained. Patient was cooperative with procedure and tolerated well. Agitation is markedly less this geneva. Will monitor.
[2019-08-05] VITALS (9 sets, daily range): BP systolic 125–142; BP diastolic 66–78; PULSE 90–124; RESP 19–40; TEMP 36.4–37.1; O2SAT 92–97
[2019-08-05] MEDS: ALBUTEROL/IPRATROPIUM 3 ML AMPUL INH ×5 (00:24→23:31)
--- NOTE | 2019-08-05 03:49 | PC.NURSE ---
has stayed at bedside talking and touching and rubbing since at least 2309. Neither has slept, no prns to encourage rest, just increasing anxiety and faster rubbing by . Pt confused as to place and time and situation, only oriented to self.
--- NOTE | 2019-08-05 05:53 | PC.NURSE ---
This INSTRUMENT PANEL ASSEMBLER along with an RN helped pt stand at bedside to urinate. held urinal and then took it away and flushed it, so urine void amount was unmeasured. Pt was safely assisted back into bed with bed rails in place and call light in reach. Lights turned off for sleeping.
[2019-08-05 07:12] LABS: BUN Creatinine Ratio 55.6 (6-22); Blood Urea Nitrogen 50 mg/dL (9-20); Calcium 8.3 mg/dL (8.4-10.2); Carbon Dioxide 30 mmol/L (22-32); Chloride 102 mmol/L (98-107); Estimated Glomerular Filt Rate > 60.0 mL/min (>60); Glucose 155 mg/dL (80-110); HEMOLYSIS 17 (0-50); Hematocrit 42.3 % (41-53); Hemoglobin 14.1 g/dL (13.5-17.5); Magnesium 2.3 mg/dL (1.6-2.3); Mean Corpuscular HGB Conc 33.4 % (30-36); Mean Corpuscular Hemoglobin 29.9 PG (26-34); Mean Corpuscular Volume 89.4 fL (80-100); Platelet Count 205 X10^3/uL (150-400); Potassium 4.4 mmol/L (3.4-5.1); Red Blood Cell Count 4.72 X10^6/uL (4.5-5.9); Red Cell Distribution Width 15.1 % (11.6-14.8); Sodium 138 mmol/L (137-145)
[2019-08-05 07:14] LABS: Add Manual Diff / Slide Review YES
[2019-08-05 07:51] LABS: Neutrophils Absolute Manual 6300 /uL (3000-5900); Total Cells Counted 100
[2019-08-05 07:52] LABS: Anisocytosis 1+
[2019-08-05] MEDS: TAMSULOSIN 0.4 MG CAPSULE PO (08:18)
[2019-08-05] MEDS: CEFTRIAXONE 1 GM/50 ML FROZ.PIGGY IV (08:18)
[2019-08-05] MEDS: dilTIAZem CD 240 MG CAP PO (08:18)
[2019-08-05] MEDS: ENOXAPARIN 40 MG/0.4 ML SYRINGE SUBCUT (08:23)
[2019-08-05] MEDS: DILTIAZEM 125 MG/125 ML PIGGYBACK 10 MG IV (09:22)
--- NOTE | 2019-08-05 09:26 | PM.PN.1 ---
Subjective Subjective Date Patient Seen: 08/05/19 Time Patient Seen: 09:26 Interval history: He is seen today to follow-up the atrial flutter with variable rapid ventricular response, COPD exacerbation and dementia/sundowning. Overnight he has continued to improve and is up, in his chair eating breakfast with his assisting. A physical therapy evaluation is pending today. He had to be straight cathed once last night but has been urinating normally since. His diltiazem drip continues at 10 milligrams/hour to keep the heart rate less than 110 despite starting on oral diltiazem yesterday. His telemetry continues to show generally a 3-1 atrial flutter. I met with the environmental emergencies planner, his and his daughter today. Today they both state that he did not sundown at home, contradicting what was said to the nurses 2 nights ago. Exam Vital Signs (past 8 hours): - 08/05/19 03:25 08/05/19 03:27 08/05/19 06:22 Temperature 98.8 F Pulse Rate 107 H 95 H 96 H Respiratory Rate 24 28 H 24 Blood Pressure 142/78 H Pulse Oximetry 92 93 92 08/05/19 08:00 Temperature 97.6 F Pulse Rate 96 H Respiratory Rate 19 Blood Pressure 136/66 Pulse Oximetry 94 Fraction of Inspired Oxygen 24 Oxygen Delivery Method Nasal Cannula Oxygen Flow Rate 2 Narrative Exam Narrative: On exam he is able to converse but is oriented only to name. He is quite animated. Lungs have wheezes bilaterally. Heart is regular rate and rhythm without murmur. Extremities have no ankle edema. Objective Labs Result Diagrams: 08/05/19 06:50 08/05/19 06:50 Labs: Laboratory Results - last 24 hr 08/05/19 08/05/19 06:50 06:50 WBC 10.0 RBC 4.72 Hgb 14.1 Hct 42.3 MCV 89.4 MCH 29.9 MCHC 33.4 RDW 15.1 H Plt Count 205 Neut % (Auto) Not Reportable Lymph % (Auto) Not Reportable [place] % (Auto) Not Reportable Eos % (Auto) Not Reportable Baso % (Auto) Not Reportable Lymph # (Auto) Not Reportable [place] # (Auto) Not Reportable Baso # (Auto) Not Reportable Total Counted 100 Seg Neutrophils % 61.0 Band Neutrophils % 2.0 L Lymphocytes % (Manual) 18.0 L Atypical Lymphs % 6.0 H Monocytes % (Manual) 12.0 H Metamyelocytes % 1.0 H Neutrophils # (Manual) 6300 H RBC Morphology See below Anisocytosis 1+ H Sodium 138 Potassium 4.4 Chloride 102 Carbon Dioxide 30 BUN 50 H Creatinine 0.90 Estimated GFR > 60.0 BUN/Creatinine Ratio 55.6 H Glucose 155 H Calcium 8.3 L Magnesium 2.3 Assessment & Plan Assessment & Plan narrative: Mr. 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 1. Acute hypoxemic respiratory failure, present on admission - secondary to COPD exacerbation with possible underlying pneumonia. Other etiologies to be considered are congestive failure in the setting of new atrial flutter as his rate was 180 when he came in. His rate is currently controlled but he remains in a flutter. -continue ceftriaxone and azithromycin for one more day for community-acquired pneumonia -respiratory panel positive for Rhinovirus -given methylprednisolone 125 mg initially, continues on prednisone 40 mg daily. - RT following - Now off BIPAP. 2. Atrial flutter, acute, present on admission with rapid ventricular response-patient presented with initial heart rate of approximately 180, after adenosine rhythm was confirmed to be atrial flutter. He was given 10 of Dilt and then started on a diltiazem drip. Patient or family does not report history atrial fibrillation or atrial flutter. He also has a history of hemorrhagic stroke. Chads Vasc of 2 at this time. May be reactive to acute respiratory failure as well. Will need further discussion regarding anticoagulation, however given hemorrhagic stroke the risks likely outweigh the benefits in him. -normal ejection fraction and no valvular abnormality on echocardiogram. -continue diltiazem infusion and increase diltiazem oral to 360 mg today. 3. COPD with acute exacerbation -patient is on supplemental oxygen as needed at home. -continue steroids, treat for possible underlying community-acquired pneumonia with antibiotics -goal O2 88-92% 4. Community-acquired pneumonia -small perihilar infiltrate noted on chest imaging which may be fluid overload as well. Respiratory panel was Rhinovirus positive, procalcitonin 0.25. Patient has been on Bactrim recently after his prior visit. He had a leukocytosis to 22 now down to 12, this may be reactive to the steroids that he has been receiving. Patient uses as needed supplemental oxygen at home. -plan to stop azithromycin and ceftriaxone on 08/06, tomorrow 5. Hyperlipidemia, chronic, stable -continue home Lipitor PT for discharge planning Use Olanzapine/HS sedation sparingly Code: Full Patient elects his surrogate decision maker as his Met with environmental emergencies planner, daughter and today 08/05 with plan for discharge home with home health rehab once the atrial flutter response rate is controlled on oral diltiazem. He will need cardiology consultation as an outpatient.
[2019-08-05] MEDS: predniSONE 20 MG TABLET 40 MG PO (09:29)
[2019-08-05] MEDS: guaiFENesin ER 600 MG TAB PO (09:29)
[2019-08-05] MEDS: AZITHROMYCIN 500 MG in DEXTROSE 5% IN WATER 250 ML IV (09:29)
--- NOTE | 2019-08-05 10:40 | CM.DPC ---
Addendum entered by Puja Carrillo LPN 08/05/19 13:32: Met with pt's Kia and his daughter Briseida as planned. Dr. Colby joined conversation part way through the discussion and updated family on pt's medical status and participated in discussion of d/c dispo plans. Briseida confirms that her parents live with her and her and that they all provide supportive care to pt. She states they have several children,now older, who all have been home schooled and are willing helpers for the family when needed. Briseida and Kia both add clarity to pt's prior level of cognitive and physical function. Pt had a frontal lobe CVA in 2016 which did affect his cognitive process but he has improved greatly since then. Briseida says the only time pt ever has difficulty with geneva/night confusion/agitation is when he is in a hospital setting. Both say this does NOT occur at home and that they would be very reluctant to have pt go to a snf setting as it would only be upsetting to him. And we are all very able to care for him at home. Pt has been functioning in home setting with independent mobility without AD. He uses a mediset for his medications and family help him manage this. They agree today that it will be best to have family take over this task completely. helps him in shower but otherwise he does do his own dressing, toileting etc. Discussed HH option and all agreed this would be helpful. Pt has not had this before. RN/OT/PT is now ordered and Dr. Colby has completed the Face/Face document. agency list: discussed. Decision: [facility] . Referral given to Kate: accepts: states they can go out day after d/c. (Dr. Colby anticipates pt will likely be ready for d/c Tuesday or Tuesday, dependent on cardiac status.) PT Elida did work with pt today. Discussed case with her after eval and she agreed that home setting would be best for pt. Pt's family was present for this eval. Elida is recommending a FWW for d/c and plans to issue one to pt on day of d/c (Per family request as pt does not have one). P: at this point: home with family when stable for same. Continue o2 at home with vendor: Mindy QUIROGA RN/PT/OT. [facility] will need d/c summary faxed when available and an update on the d/c date. Original Note: DCP: continued: case discussed in Team Rounds. Dr. Colby reports pt becoming clearer. Was anxious again last night but less so. was at bedside. Pt needed straight cath on gneeva shift as only voiding very small amts: 600 out and per RN notes he tolerated this well. PT will see pt today for first time. OT order is now placed with expectation that OT will see pt when available tomorrow. ARTIFICIAL SNOW MAKING MACHINE OPERATOR is already seeing pt: added need for cognitve testing/SLUMS to this as Dr. Colby thinks pt will now tolerate same. Family meeting at [address] Colby expects to also speak with family at that time. Will be following at 1130 as planned.
--- NOTE | 2019-08-05 12:17 | RT ---
Breathing treatments do not seem to help patient's upper airway rhonchi. Patient has been being evaluated by PT, meeting with MD and case management and is now being fed by . Discussed pt with HECTOR Hurd in that treatment is marked not given but there are Q2 prn txs and patient can have one at any time if needed. Will check back at next scheduled treatment.
--- NOTE | 2019-08-05 13:13 | PT.IIE ---
Current Diagnoses Pneumonia, unspecified organism (08/02/19) Surgical History (Last Reviewed 08/02/19 @ 08:43 by Rosa Elena Gregorio MD) Anesthesia (Resolved) History of hip replacement (Resolved) Medical History (Last Reviewed 08/02/19 @ 08:43 by Rosa Elena Gregorio MD) COPD (chronic obstructive pulmonary disease) (Chronic ~1999) Dementia (Chronic ~2014) Hypothyroidism (Chronic) Melanoma (Chronic ~2015) Stroke (Inactive ~2014) Physical Therapy Inpatient Evaluation/Re-Eval M1 PT/OT-IP Prior Functional Status Start: 08/05/19 08:19 Freq: NEEDED Status: Active Protocol: Document 08/05/19 12:09 AW (Rec: 08/05/19 13:13 AW [id number]) Medical Review Prior Functional Status Medical History Reviewed Yes Communication 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 Mobility and Gait Pt was limited to household ambulation without assistive device. Pt and family report that his mobility has deteriorated recently, but that he does not use any assistive device at home. Family ( Paulina and daughter Briseida) attest that he tends to walk with shuffling gait. Activities of Daily Living and IADL's Pt's helped him with showers and medication management. He was otherwise independent with all ADL's. Prior Functional Level (Other details) Pt and family report no falls since before his stroke. Social History Household Members spouse,children Living Arrangements House Number of Floors (Floors) Two Floors Number of Stairs To Enter/Railing? 1 MINA with no railing. Pt stays on main level with no need to access the basement. He does occasionally use the stairs with railing to play pool in the basement. Home Environment High Toilet Home Equipment Shower Seat with Backrest,Hand Held Shower,Grab Bars Near Toilet,Grab Bars In Shower Employment Status Retired Additional Social History Comment Pt lives with spouse Paulina and daughter Briseida who recently moved from [facility] to live with her parents. M2 PT-IP Current Condition Start: 08/05/19 08:19 Freq: NEEDED Status: Active Protocol: Document 08/05/19 12:09 AW (Rec: 08/05/19 13:13 AW [id number]) Physical Therapy Current Condition Current Condition Evaluation Date 08/05/19 Treatment Diagnosis COPD exacerbation, impaired mobility Onset Date 08/02/19 Precautions Other Precautions Pt on 0.5 L hydrated O2 with SpO2 ~95% at rest Weight Bearing Status Weight Bearing Status Full Weight Bearing M3 PT-IP Subjective Start: 08/05/19 08:19 Freq: NEEDED Status: Active Protocol: Document 08/05/19 12:09 AW (Rec: 08/05/19 13:13 AW [id number]) Subjective Physical Therapy Visit Type Type Initial Evaluation Visit Start Time 10:22 Visit Stop Time 11:07 Total Visit Minutes 45 Notes Pt's spouse and daughter present during evaluation and contributed much detail to subjective history. 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 Therapy Pain Assessment Pain When Pain Assessed During Mobility Pain Present Pain Present Pain Reported FLACC Pain Scale Face No particular expression Legs Normal position; relaxed Activity Quiet, moves easily Cry No cry (awake or asleep) Consolability Reassurable with touch FLACC Total 1 M4 PT-IP Mobility and Gait Start: 08/05/19 08:19 Freq: NEEDED Status: Active Protocol: Document 08/05/19 12:09 AW (Rec: 08/05/19 13:13 AW [id number]) PT-Bed Mobility Assessment Supine to Sit Supine to Sit Standby Assistance Scooting Scooting to Edge of Bed Contact Guard Assistance PT-Transfer Assessment Sit to and From Stand Sit to and from Stand Contact Guard Assistance,1 Person Assistance,Use of Upper Extremities Equipment Transfer Assistive Device Gait Belt,Front Wheeled Walker Orthotic/Prosthetic Devices or Brace: No Transfers Transfer Destination Bed,Chair Transfer Technique Forward/Backward Scoot Transfer Ability Level of Assist Contact Guard Assistance,1 Person Assistance,Use of Upper Extremities Comments Mobility Comments Pt completed supine to sit SBA and was able to perform sit to stand using FWW CGA. Pt required CGA and back-of-leg contact with bed in immediate standing to recover from retropulsive loss of balance. PT attempted to assess dynamic balance in standing by asking pt to reach to targets outside base of support, but pt had difficulty understanding or following simple commands. Pt marched in place both with and without walker CGA. He also ambulated ~2 feet forward and 2 feet backward using FWW CGA. Pt initially on 0.5 L hydrated O2 via NC with SpO2 ~95%. During short bout ambulation, SpO2 dropped to 85% with pt demonstrating significantly labored breathing. Pt returned to sitting EOB and recovered SpO2 to low 90's within one minute. Pt then transferred EOB to chair, requiring min assist and max verbal and tactile cues for sequencing, including direction of movement, use of UE's, and placement of feet. Communication was assisted by making clear eye contact and speaking in very simple, short phrases to direct the patient . SpO2 again dropped to 81-83% during transfer at which time pt was placed on 4L O2 and improved sats to 95%. Pt left in chair with RN attending. Gait Assessment Gait Gait Assistance Required: Contact Guard Assist Distance (Feet) 4 Able to Maintain Weight Bearing Status Yes During Gait Assistive Devices Assistive Device Gait Belt,Front Wheeled Walker Orthotic/Prosthetic Devices or Brace: No Gait Deviations General Gait Pattern Decreased Stride Length, Decreased Feet Clearance, Flexed Trunk Factors Limiting Gait Function Factors Limiting Gait Function Decreased Activity Tolerance, Decreased Strength,Difficulty Following Directions,Poor Balance,Poor Safety Awareness, Respiratory Distress Comments Gait Comments See mobility notes. Pt required CGA and FWW to ambulate 4 feet x 2 with significantly labored breathing. Gait pattern was notable for lack of foot clearance which family attests is consistent with his baseline. Stair Climbing Assessment Comments Stair Climbing Comments Not assessed. PT-Balance Assessment Sitting Balance and Reactions Static Sitting Balance Ability Good Dynamic Sitting Balance Ability Fair Standing Balance and Reactions Static Standing Balance Ability Fair Dynamic Standing Balance Ability Fair Device Used FWW M5 PT-IP Objective Assessments Start: 08/05/19 08:19 Freq: NEEDED Status: Active Protocol: Document 08/05/19 12:09 AW (Rec: 08/05/19 13:13 AW [id number]) Orientation Orientation/Cognition Level of Alertness Confusional State Orientation Name,Situation Language Function Ability Expressive Aphasia,Receptive Aphasia,Garbled Speech Safety Awareness Decreased Safety Awareness Comments Pt attends to conversation but answers with garbled speech and evidence of aphasia, both receptive and expressive. He requires cues to slow down speech and attempt to enunciate. Gross Range of Motion Upper Extremity ROM Assessment Within Functional Limits Lower Extremity ROM Assessment Within Functional Limits Strength Upper Extremity Strength Assessment Bilaterally Impaired Lower Extremity Strength Assessment Bilaterally Impaired Comments Strength Comments B shoulder flexion/abduction 4 -/5. B hip flexion 4-/5. Unable to assess knee flexion or ankle strength secondary to communication deficits Sensation Assessment Comments Sensation Comments Unable to properly assess due to communication deficits. Pt reports good and equal sensation but PT is unable to determine if responses are appropriate. M6 PT-IP Treatment Start: 08/05/19 08:19 Freq: NEEDED Status: Active Protocol: Document 08/05/19 12:09 AW (Rec: 08/05/19 13:13 AW [id number]) Physical Therapy Treatment Other Treatments Other Treatment Performed Reviewed PT plan of care and safe use of FWW. Discussed potential need for FWW at home with family, at least in the short term M7 PT-IP Assessment and Plan Start: 08/05/19 08:19 Freq: NEEDED Status: Active Protocol: Document 08/05/19 12:09 AW (Rec: 08/05/19 13:13 AW [id number]) PT Summary Assessment and Plan Potential Rehabilitation Potential Good Status of Condition at Evaluation Evolving Summary Impairments ROM,Strength,Balance,Cognition ,Bed Mobility,Transfers,Gait, Activity Tolerance Assessment Summary Pt is a 78 yo man with history of hemorrhagic CVA in 2016 and residual speech deficits. He was admitted 2 days ago with COPD exacerbation and atrial flutter. Pt was independent with household mobility without use of assistive device. His provided close standby assist with showers and help with medication management, but pt was otherwise independent for ADL's. Pt and his family report no falls since before his stroke. On evaluation, pt required CGA for most mobility due to loss of balance. He also needed max verbal and tactile cues for direction of movement, safety with walker, and transfer sequencing - possibly due to worsening cognitive status which pt's family reports is inconsistent with his baseline at home. SpO2 on 0.5 LPM dropped from 97% at rest to 83% with short bouts of mobility. Pt responded immediately to increased rate of flow to 4 LPM, improving his SpO2 to 95% . Pt has a supportive spouse, daughter, and extended family in the home and nearby. They report that he tends to become disoriented in hospital or other unfamiliar settings and they wish for him to return to home at discharge. This patient could certainly benefit from SNF rehab, but this PT is in agreement with the family that his home environment is likely the most conducive for rehab. PT recommends discharge to home with family assist and home health services when cleared by Medicine. Goals Bed Mobility Goal Independent Transfer Goal Standby Assistance,Front Wheeled Walker Gait Goal Standby Assistance,Front Wheel Walker Gait Distance 100 Other Goals up/down 1 step with no railing CGA Days to Meet Goals 5 Frequency of Treatment Frequency Of Treatment Twice a Day Treatment Plan Physical Therapy Treatment Plan Bed Mobility Training,Transfer Training,Gait Training, Therapeutic Exercise,Balance Retraining,Discharge Planning, Hot or Cold Pack,Neuromuscular Re-ed,Coordination Retraining ,Manual Therapy Other Recommendations and Next Treatment gait training with FWW with Focus attention to SpO2 Recommendations To Nursing Amount of Assist Needed 1 Person Assist Discharge Recommendations PT Discharge Recommendations Home with 28/03 Assist,Home Health Equipment Needed for Home Before FWW for home use Discharge
--- NOTE | 2019-08-05 14:18 | PC.NURSE ---
Am shift Pt A/o x4, up with PT ambulating in [address]. U/s of liver done prior to lunch. Pt Aware of plan to start eliquis. D/c planing for SNF in AM. Pt is due for wound care appt Tuesday 08/07, for weekly dressing change to R knee. This is covered with allyvn currently and scant shadow drainage noted. Call to wound care and message left for dressing change orders. Pt has appt at 1445 08/06. Pt is having less SOB with activity, fatigues quickly. using 2L O2 and Spo2 >94%. updated of POC. Await u/s results.
[2019-08-05] MEDS: dilTIAZem 30 MG TABLET 60 MG PO (14:24)
--- NOTE | 2019-08-05 14:41 | PC.NURSE ---
Am shift note Pt A/o x2, WOB increased with activity. 2L on, with Spo2 94% activity causing substantial increase to resp effort. PO dilt given, IV dilt still @ 10/hr. Midline to LUE dual lumen flushing well. at bedside, very involved in care. Continue to attempt taper on IV Dilt.
--- NOTE | 2019-08-05 14:45 | DI.RAD.S_ITS ---
PROCEDURE: XR CHEST 1V INDICATIONS: Dyspnea TECHNIQUE: One view of the chest was acquired. COMPARISON: [facility], CR, XR CHEST 1V, 08/02/2019, 7:02. FINDINGS: Surgical changes and devices: None. Lungs and pleura: The pulmonary radiopacities described on the study dated 08/02/19 that was conspicuous on the current study. No new pulmonary radiopacities. No pleural effusion or pneumothorax. Mediastinum: Mediastinal contours appear normal. Heart size is normal. Bones and chest wall: No suspicious bony lesions. Overlying soft tissues appear unremarkable. IMPRESSION: Improved aeration of the left mid lung when compared with the prior study. No new acute cardiopulmonary findings. Dictated by: Jessica Jensen M.D. on 08/05/2019 at 14:20 Approved by: Jessica Jensen M.D. on 08/05/2019 at 14:21
[2019-08-05] MEDS: CITALOPRAM 20 MG TABLET PO (15:19)
--- NOTE | 2019-08-05 15:25 | PC.NURSE ---
Addendum entered by Janeth Barnes R.N. 08/05/19 19:18: 1900- Patient is very agitated and combative. Attempting to give meds with pudding but patient is not cooperating. Patient has taken his pulse oximetry off and will not allow it to be placed back on him. Patient is yelling and asking for help. Diltiazem gtt is off and heart rate remains under 100 but continues in AFlutter. Family has gone home for tonight. Ddimer is elevated and MD ordered a CT Chest but patient is too agitated to get this test right now. Test is on hold. Unable to get patient to take anything po right now. Patient is attempting to kick and hit staff and climb out of bed. Yang LYONS notified and await orders. Original Note: 1525- Patient is sitting up in bed drinking water. Patient is audibly wheezing and respiratory rate is in the 30's. Patient states he is not having any pain. is at bedside. 02 on at 2 liters cannula. Diltiazem gtt at 10mg/hr. Posterior lungs are dim/coarse/wheezes. Will monitor.
--- NOTE | 2019-08-05 15:40 | RT ---
Patient had an increase in WOB similiar to the one he had Tuesday night. UAW wheezes heard before treatment. After he had UAW wheezes plus upper lobe wheezes. CXR performed and it shows increased aeration to left lung as opposed to the CXR done on 08/02. Waiting to see results of BNP and D Dimer. Breathing treatment did not reduce patient's work of breathing. RR was 32 at the time of treatment and remained over 30 after. MD Colby has been down to see patient.
[2019-08-05 15:47] LABS: D Dimer 1801 ng/mL (<230)
[2019-08-05 15:49] LABS: B Type Natriuretic Peptide < 100 (<100)
[2019-08-05] MEDS: MEMANTINE HCL 5 MG TABLET 10 MG PO (16:51)
[2019-08-05] MEDS: MELATONIN 3 MG TABLET 6 MG PO ×2 (19:12→23:43)
[2019-08-05] MEDS: QUETIAPINE 25 MG TABLET PO (19:13)
[2019-08-05] MEDS: OLANZapine 10 MG VIAL 5 MG IM (20:00)
[2019-08-05] MEDS: dilTIAZem CD 180 MG CAP 360 MG PO (20:58)
[2019-08-06] VITALS (9 sets, daily range): BP systolic 123–144; BP diastolic 71–82; PULSE 80–92; RESP 20–28; TEMP 36.3–36.9; O2SAT 93–96
--- NOTE | 2019-08-06 02:40 | PC.NURSE ---
Post void residual checked with bladder scanner for greater than 600 after vioding 125. In and out done for 700ml of cl yellow urine, immediately settled down to sleep.
[2019-08-06] MEDS: CEFTRIAXONE 1 GM/50 ML FROZ.PIGGY IV (09:03)
[2019-08-06] MEDS: AZITHROMYCIN 500 MG in DEXTROSE 5% IN WATER 250 ML IV (09:56)
[2019-08-06] MEDS: ALBUTEROL/IPRATROPIUM 3 ML AMPUL INH ×2 (10:50→15:55)
[2019-08-06] MEDS: CITALOPRAM 20 MG TABLET PO (10:54)
[2019-08-06] MEDS: ENOXAPARIN 40 MG/0.4 ML SYRINGE SUBCUT (10:54)
[2019-08-06] MEDS: predniSONE 20 MG TABLET 40 MG PO (10:54)
[2019-08-06] MEDS: guaiFENesin ER 600 MG TAB PO (10:54)
[2019-08-06] MEDS: TAMSULOSIN 0.4 MG CAPSULE PO (10:55)
--- NOTE | 2019-08-06 11:47 | SLP.IPNOTE ---
Orders for cognitive evaluation received. Per nursing and OT, patient is not appropriate for cognitive evaluation at this time due to difficulty answering questions and following directions consistently. Nursing reports patient slept late and just finished breakfast. He is consuming current diet without difficulty or overt s/sx of aspiration. Will re-attempt cognitive evaluation this afternoon or tomorrow.
--- NOTE | 2019-08-06 11:58 | OT.IP.EVAL ---
Current Diagnoses Pneumonia, unspecified organism (08/02/19) Past Medical History (Last Reviewed 08/02/19 @ 08:43 by Rosa Elena Gregorio MD) COPD (chronic obstructive pulmonary disease) (Chronic ~1999) Dementia (Chronic ~2014) Hypothyroidism (Chronic) Melanoma (Chronic ~2015) Stroke (Inactive ~2014) Surgical History (Last Reviewed 08/02/19 @ 08:43 by Rosa Elena Gregorio MD) Anesthesia (Resolved) History of hip replacement (Resolved) Occupational Therapy Inpatient Evaluation/Re-Eval na to live with her parents. M1 PT/OT-IP Prior Functional Status Start: 08/06/19 13:38 Freq: NEEDED Status: Active Protocol: Document 08/06/19 11:58 [facility] (Rec: 08/06/19 14:12 [facility] [id number]) Medical Review Prior Functional Status Medical History Reviewed Yes Communication 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 Mobility and Gait Per PT eval:Pt was limited to household ambulation without assistive device. Pt and family report that his mobility has deteriorated recently, but that he does not use any assistive device at home. Family ( Kia and daughter Briseida) attest that he tends to walk with shuffling gait. Activities of Daily Living and IADL's Pt's helped him with showers and medication management. He was otherwise independent with all ADL's. Prior Functional Level (Other details) Pt and family report no falls since before his stroke. Social History Household Members spouse,children Living Arrangements House Number of Floors (Floors) Two Floors Number of Stairs To Enter/Railing? 1 MINA with no railing. Pt stays on main level with no need to access the basement. He does occasionally use the stairs with railing to play pool in the basement. Home Environment High Toilet Home Equipment Shower Seat with Backrest,Hand Held Shower,Grab Bars Near Toilet,Grab Bars In Shower Employment Status Retired Additional Social History Comment Pt lives with spouse Kia and daughter Briseida who recently moved from [facility] to live with her parents. M2 OT-IP Current Condition Start: 08/06/19 13:38 Freq: Status: Active Protocol: Document 08/06/19 11:58 [facility] (Rec: 08/06/19 14:12 [facility] [id number]) Occupational Therapy Current Condition Current Condition Evaluation Date 08/06/19 Treatment Diagnosis COPd exacerbation, acute hypoxemic respiratoy failure, decreased balance Diagnosis Onset Date 08/02/19 M3 OT- IP Subjective and Pain Start: 08/06/19 13:38 Freq: Status: Active Protocol: Document 08/06/19 11:58 [facility] (Rec: 08/06/19 14:12 [facility] [id number]) OT- Subjective Occupational Therapy Visit Type Type Initial Evaluation Visit Start Time 11:58 Visit Stop Time 11:29 Total Visit Minutes 31 Occupational Therapy Visit Comments Patient Comments Pt agreeable to get up to brush his teeth and present and daughter came in at the end of OT eval. Patient/Caregiver Goals Pt wanting to go home when able. OT Pain Assessment Pain When Pain Assessed At Rest Pain Present Pain Present Denied Pain M4 OT- IP ADL's Start: 08/06/19 13:38 Freq: Status: Active Protocol: Document 08/06/19 11:58 [facility] (Rec: 08/06/19 14:12 [facility] [id number]) OT ADL-Grooming General Evaluation Grooming Ability Moderate Assistance Areas Needing Assistance Retrieving/Set-up of Grooming Items,Face Washing Comments OT Grooming Comments LUZMA for completeness. Pt used to doing it his own way. For example, per pt leans over the faucet to get the water to rinse his mouth out versus use of cup to rinse. Pt needing MODA to help wash his hands due to decreased balance while letting go of the counter while standing. In addition , pt uses bar of soap to wash his hands at home versus automatic soap dispensor. OT ADL-Oral Care General Eval Oral Care Ability Standby Assistance Areas of Assistance Retrieving/Set-Up of Items OT ADL-Dressing Comments OT Dressing Comments Not performed this session. OT ADL-Toileting Comments OT Toileting Comments Pt not having to use the toilet at this time. Pt has a high toilet and grab bar at home. Pt may benefit from BSC. OT ADL-Bathing Comments OT Bathing Comments Not at this time due to decreased activity tolerance. M5 OT- IP IADL's Start: 08/06/19 13:38 Freq: Status: Active Protocol: Document 08/06/19 11:58 [facility] (Rec: 08/06/19 14:12 [facility] [id number]) OT-Instrumental Activities of Daily Living Home Safety Awareness Awareness of Need for Assistance at Home Decreased Awareness Ability to Problem Solve Emergency Unable to Problem Solve Situations Medication Management Medication Management Caregiver Administers Money Management Money Management Caregiver Provides Assistance Meal Preparation Meal Preparation Caregiver Provides Assist [employer] Manager [employer] Manager Caregiver Provides Assist Driving Driving Caregiver Provides Assist M6 OT- IP Functional Cognition Start: 08/06/19 13:38 Freq: Status: Active Protocol: Document 08/06/19 11:58 [facility] (Rec: 08/06/19 14:12 [facility] [id number]) Cognitive Factors Limiting Selfcare Function Cognitive Ability Level of Alertness Alert Patient Orientation Name Attention Span Ability Capable of Focused Attention, Capable of Sustained Attention Ability to Follow Commands Able to Follow One Step Commands with Increased Time, Able to Follow One Step Commands with Repetition Cognitive Tests SLUMS Initiated but not able to get the words out or recall. Pt tends to look to his to answer. After given pt multiple options able to identify that he has just went to to high school. However pt did not remember that he was in the [employer] which his pointed out. Cognitive Comments Cognitive Assessment Comments At this time hard to fully assess as pt appears to have receptive and expressive aphasia. Pt's states at times able to get this words out , but she usually knows what he is trying to say. Pt definitely needs a structure environment and routine to follow for ADl needs. Set-up in the hospital different from home and pt appears lost as to how to brush his teeth or wash his hands and needing step by step instructions. M7 OT- IP Mobility and Balance Start: 08/06/19 13:38 Freq: Status: Active Protocol: Document 08/06/19 11:58 [facility] (Rec: 08/06/19 14:12 [facility] [id number]) OT-Transfer Assessment Sit to and From Stand Sit to and from Stand Minimal Assistance Transfers Transfer Ability Minimal Assistance,1 Person Assistance Technique Transfer Destination Chair Transfer Technique Stand Step Pivot Devices Transfer Assistive Devices Gait Belt,Front Wheeled Walker Comments Mobility Comments VC and assist to help pt place hands on the armrest of recliner to help push up to mirror installer addition to needing LUZMA to FWW. Pt needing more assist MIN/MODA to mirror installer not holding onto fww or surface. OT- Balance Assessment Sitting Balance and Reactions Static Sitting Balance Ability Good Standing Balance and Reactions Static Standing Balance Ability Poor Comments Other Balance Tests/Deviations/Treatment In static sitting , pt tends : to lean to the right when sitting upright and unaware not at midline. M8 OT- IP Objective Assessments Start: 08/06/19 13:38 Freq: Status: Active Protocol: Document 08/06/19 11:58 [facility] (Rec: 08/06/19 14:12 [facility] [id number]) OT Gross Range of Motion Upper Extremity Range of Motion Assessment Bilaterally Impaired ROM Impairments BUE shoulder flexion 0-100. OT Strength Upper Extremity Strength Assessment Within Functional Limits M9 OT- IP Assessment and Plan Start: 08/06/19 13:38 Freq: Status: Active Protocol: Document 08/06/19 11:58 [facility] (Rec: 08/06/19 14:12 [facility] [id number]) OT Summary Assessment and Plan Potential Rehabilitation Potential Good Analytic Complexity at Evaluation Low Summary OT Impairments Balance,Functional Cognition, Functional Mobility,Grooming, Dressing,Toileting,Bathing, Toilet Transfers,Shower Transfers Progress Towards Goals Slow Progress due to Medical Issues,Slow Progress due to Activity Tolerance,Slow Progress due to Cognition Assessment Summary Pt low complexity and main barrier is step, decreased activity tolerance , and now needing use of O2 at all times . Pt now needing increased assist for ADL and functional mobility needs and will require more physical assist from family in addition to continue to provide assist for pt's cognitive impairments. Pt will benefit from going home to his structured environment and routine and home health. Goals Grooming Goal Standby Assistance Dressing Goal Standby Assistance Toileting Goal Standby Assistance Bathing Goal Moderate Assistance Toilet Transfer Goal Standby Assistance Shower Transfer Goal Contact Guard Assistance Patient/Caregiver Education Goal Caregiver Independent Assisting Patient Days to Meet Goals 7 Frequency of Treatment Frequency Of Treatment Once a Day Treatment Plan OT Treatment Plan ADL Training,Functional Cognition Training,Functional Mobility,Patient/Family Education,Discharge Planning Other Treatment Recommendations and Next caregiver training Treatment Focus Discharge Recommendations OT Discharge Recommendations Home with 28/03 Assist,Home Health Home Equipment Needs FWW, BSC
--- NOTE | 2019-08-06 12:00 | PT.IPTN ---
Current Diagnoses Pneumonia, unspecified organism (08/02/19) Physical Therapy Treatment Note M2 PT-IP Current Condition Start: 08/05/19 08:19 Freq: NEEDED Status: Active Protocol: Document 08/05/19 12:09 AW (Rec: 08/05/19 13:13 AW [id number]) Physical Therapy Current Condition Current Condition Evaluation Date 08/05/19 Treatment Diagnosis COPD exacerbation, impaired mobility Onset Date 08/02/19 Precautions Other Precautions Pt on 0.5 L hydrated O2 with SpO2 ~95% at rest Weight Bearing Status Weight Bearing Status Full Weight Bearing M3 PT-IP Subjective Start: 08/05/19 08:19 Freq: NEEDED Status: Active Protocol: Document 08/06/19 11:32 MT (Rec: 08/06/19 12:43 MT [email or web address]) Subjective Physical Therapy Visit Type Type Treatment Note Visit Start Time 11:32 Visit Stop Time 11:57 Total Visit Minutes 25 Number of PREMIUM NOTE INTEREST CALCULATOR CLERK Visits 0 Physical Therapy Visit Comments Patient Comments Pt was very groggy during session M4 PT-IP Mobility and Gait Start: 08/05/19 08:19 Freq: NEEDED Status: Active Protocol: Document 08/06/19 11:32 MT (Rec: 08/06/19 12:43 MT [email or web address]) PT-Bed Mobility Assessment Supine to Sit Supine to Sit Moderate Assistance,1 Person Assistance Scooting Scooting to Edge of Bed Moderate Assistance PT-Transfer Assessment Sit to and From Stand Sit to and from Stand Moderate Assistance,1 Person Assistance,Use of Upper Extremities Equipment Transfer Assistive Device Gait Belt,Front Wheeled Walker Orthotic/Prosthetic Devices or Brace: No Transfers Transfer Destination Chair Transfer Technique Stand Step Pivot Transfer Ability Level of Assist Minimal Assistance,Moderate Assistance Comments Mobility Comments Pt was found in bed at start of PT session. Pt was very sleepy at beginning of session and continued to be groggy throughout session. Pt's O2 levels were at 89% prior to initiating movement. Pt seemed to have a difficult time with following directions to initiate movement. He performed supine to sit and scooting to the EOB with modA and maximal cueing. Pt performed sit to stand with 2WW and ModA and stand to sit in chair with Jayesh for controlled descent and max cueing for safety and sequencing. Pt was positioned in chair with call light and table within reach. Immediately following ambulation, pt's O2 was 91% and then luci to 95% after sitting for a couple minutes. Gait Assessment Gait Gait Assistance Required: Contact Guard Assist Distance (Feet) 4 Able to Maintain Weight Bearing Status Yes During Gait Assistive Devices Assistive Device Gait Belt,Front Wheeled Walker Orthotic/Prosthetic Devices or Brace: No Gait Deviations General Gait Pattern Decreased Stride Length, Decreased Feet Clearance, Flexed Trunk Factors Limiting Gait Function Factors Limiting Gait Function Decreased Activity Tolerance, Decreased Strength,Difficulty Following Directions,Poor Balance,Poor Safety Awareness, Respiratory Distress Comments Gait Comments Pt was groggy today and seemed to have a more difficult time with following directions which increased his assistance levels with tasks. Pt ambulated 4 feet with CGA and 2WW to transfer to the chair. During ambulation, he started saying I can't, but it was unclear as to what he was referring to. PT decided that in was a good idea to have him sit in chair and not ambulate any further. He required max cueing and PT had to help control the walker. Stair Climbing Assessment Comments Stair Climbing Comments not assessed at this time M5 PT-IP Objective Assessments Start: 08/05/19 08:19 Freq: NEEDED Status: Active Protocol: Document 08/05/19 12:09 AW (Rec: 08/05/19 13:13 AW [id number]) Orientation Orientation/Cognition Level of Alertness Confusional State Orientation Name,Situation Language Function Ability Expressive Aphasia,Receptive Aphasia,Garbled Speech Safety Awareness Decreased Safety Awareness Comments Pt attends to conversation but answers with garbled speech and evidence of aphasia, both receptive and expressive. He requires cues to slow down speech and attempt to enunciate. Gross Range of Motion Upper Extremity ROM Assessment Within Functional Limits Lower Extremity ROM Assessment Within Functional Limits Strength Upper Extremity Strength Assessment Bilaterally Impaired Lower Extremity Strength Assessment Bilaterally Impaired Comments Strength Comments B shoulder flexion/abduction 4 -/5. B hip flexion 4-/5. Unable to assess knee flexion or ankle strength secondary to communication deficits Sensation Assessment Comments Sensation Comments Unable to properly assess due to communication deficits. Pt reports good and equal sensation but PT is unable to determine if responses are appropriate. M6 PT-IP Treatment Start: 08/05/19 08:19 Freq: NEEDED Status: Active Protocol: Document 08/06/19 11:32 MT (Rec: 08/06/19 12:43 MT [email or web address]) Physical Therapy Treatment Education Education Provided Safety M7 PT-IP Assessment and Plan Start: 08/05/19 08:19 Freq: NEEDED Status: Active Protocol: Document 08/06/19 11:32 MT (Rec: 08/06/19 12:43 MT [email or web address]) PT Summary Assessment and Plan Potential Rehabilitation Potential Fair Status of Condition at Evaluation Evolving Summary Impairments ROM,Strength,Balance,Cognition ,Bed Mobility,Transfers,Gait, Activity Tolerance Assessment Summary Pt required maximal cueing for all tasks with frequent repetition. He was unable to follow multi-step commands. Pt required more assistance level today which could be attributed to his increased sleepiness. Pt was able to participate in treatment session without a drop in O2 below 89%, but still exhibits decreased activity tolerance. Given the pt's mental state, he would still benefit from discharge home, in order to provide most familiar environment and prevent further confusion of the pt with another change in location and caregivers. Due to the increased need for caregiver training in preparation for discharge home , pt would benefit from increasing to 2 treatments per day to educate the family on how to care for and prepare for pt d/c home. Goals Bed Mobility Goal Independent Transfer Goal Standby Assistance,Front Wheeled Walker Gait Goal Standby Assistance,Front Wheel Walker Gait Distance 100 Other Goals up/down 1 step with no railing CGA Days to Meet Goals 5 Frequency of Treatment Frequency Of Treatment Twice a Day Treatment Plan Physical Therapy Treatment Plan Bed Mobility Training,Transfer Training,Gait Training, Therapeutic Exercise,Balance Retraining,Discharge Planning, Hot or Cold Pack,Neuromuscular Re-ed,Coordination Retraining ,Manual Therapy Other Recommendations and Next Treatment gait training with FWW with Focus attention to SpO2, resident care manager rn training with spouse and children Recommendations To Nursing Amount of Assist Needed 1 Person Assist Discharge Recommendations PT Discharge Recommendations Home with 28/03 Assist,Home Health Equipment Needed for Home Before FWW for home use Discharge
--- NOTE | 2019-08-06 14:23 | SLP.IPNOTE ---
Physical therapy was working with patient upon second attempt for dysphagia therapy and cognitive evaluation; therefore, patient was not seen by speech therapy today. Will re-attempt tomorrow.
--- NOTE | 2019-08-06 14:38 | PC.NURSE ---
Day Shift Note Pt sleeping soundly at start of shift, allowed to rest until 1000, awoke easily to voice, oriented to self only. Has much difficulty following instructions, requires frequent cues. Lung sounds coarse, tachypneic to the 30s and labored with any exertion. Oxygen sats 94% on 2L NC. Up to chair, 1-2 person assist with FWW. Aflutter in the 70-80s all shift. Took AM pills whole in applesauce without issue. PT attempted to work with pt - pt sleeping in chair and did not respond to PT's initial attempts to communicate - VS checked and are WNL (HR 74 bpm, 95% on 2L NC, RR 22 bpm, and BP 124/79). Eyes opened briskly to sternal rub and pt became agitated stating leave me alone. Attempted to stand to return to bed, pt pushing staff away and went back to sleep. Woo lift used to transfer back to bed. at bedside. Voided x2 (incontinent/continent), bladder scan post void 0 ml. Bed alarm on.
--- NOTE | 2019-08-06 15:56 | DIET.PN ---
Dietary Progress Note Assessment: Mr. Bradshaw is a 78 yom with past medical history of COPD , hyperlipidemia, and stroke 3 years ago with residual speech deficits who presented to the emergency room with shortness of breath. His was present during assessment and reports a moderate decrease in intake and noticeable fatigue, however appetite has improved on admission. She states he is not a picky eater and will eat almost anything his daughter prepares including fried chicken, rice, meatloaf and anything that is soft as he has difficulty chewing due to upper dentures. HT: 182.88 cm WT: 67.3 kg UBW: 74 kg BMI: 20.1 % change: 9% (2 mo) Labs: Glucose: 199, 155 MNA: 12 Padilla: 19, 14, 16 PO's: ~75% Nutrition Diagnosis: Chronic illness severe PCM r/t physiological factors increasing nutrient needs due to chronic illness, inability to consume sufficient energy due to illness aeb reports of energy intake < 75% EER > 1mo, weight loss 9% in 2 mo per EMR, BMI < 21 (>65 yo), unable to consume sufficient energy/protein to maintain weight, upper dentures, DX COPD w/ supplemental O2 as needed, community acquired pneumonia. Interventions: 1. Provided handouts on Dysphagia (Puree) diet. 2. Discussed Pulmonary MNT including ways to increase protein and calories throughout the day. 3. Provide ONS enlive if PO's <75%. Diet Order: Dysphagia (puree), thin Liquid (waiting on new BACK PAD INSPECTOR assessment) EER: 2000 cem @ 30cal/kg ; 100 g pro @ 1.5 g/kg (20%) Monitoring/Evaluations: Weight, Po's, Need for ONS, dsyphagia diet advance
--- NOTE | 2019-08-06 16:20 | PT.IPTN ---
Current Diagnoses Pneumonia, unspecified organism (08/02/19) Physical Therapy Treatment Note M2 PT-IP Current Condition Start: 08/05/19 08:19 Freq: NEEDED Status: Active Protocol: Document 08/05/19 12:09 AW (Rec: 08/05/19 13:13 AW [id number]) Physical Therapy Current Condition Current Condition Evaluation Date 08/05/19 Treatment Diagnosis COPD exacerbation, impaired mobility Onset Date 08/02/19 Precautions Other Precautions Pt on 0.5 L hydrated O2 with SpO2 ~95% at rest Weight Bearing Status Weight Bearing Status Full Weight Bearing M3 PT-IP Subjective Start: 08/05/19 08:19 Freq: NEEDED Status: Active Protocol: Document 08/06/19 14:10 KAVON (Rec: 08/06/19 15:12 KAVON [email or web address]) Subjective Physical Therapy Visit Type Type Treatment Note Visit Start Time 02:10 Visit Stop Time 02:46 Total Visit Minutes 36 Notes Treatment supervised by GROCERY SPECIALIST Staci. Pts present during treatment. Number of GROCERY SPECIALIST Visits 1 Physical Therapy Visit Comments Patient Comments Pt was in chair and asleep upon arrival. M4 PT-IP Mobility and Gait Start: 08/05/19 08:19 Freq: NEEDED Status: Active Protocol: Document 08/06/19 14:10 KAVON (Rec: 08/06/19 15:12 KAVON [email or web address]) PT-Transfer Assessment Sit to and From Stand Sit to and from Stand Maximum Assistance,2 Person Assistance Equipment Transfer Assistive Device Gait Belt,Front Wheeled Walker Orthotic/Prosthetic Devices or Brace: No Transfers Transfer Destination Bed Transfer Technique Mechanical Lift Transfer Ability Level of Assist Maximum Assistance,2 Person Assistance Comments Mobility Comments Pt was in chair and asleep upon arrival from PT. Pt would not wake up, nursing entered to do sternal rub. Nursing attempted to open pts eyes, but he kept them shut. Pt was agitated and slightly combative, gripping therapists hands and pushing away. Pt was on 2L O2, sats remained > 91. Sit<>stand w/ FWW and Max A x2 twice in attempt to transfer to bed. Pt would not cooperate and woo lift was used to transfer pt into bed. Pt left in bed w/ present in room and all needs in reach. Gait Assessment Gait Distance (Feet) 0 Able to Maintain Weight Bearing Status Yes During Gait Assistive Devices Orthotic/Prosthetic Devices or Brace: No Comments Gait Comments unable to assess at this time. Stair Climbing Assessment Comments Stair Climbing Comments not assessed at this time M5 PT-IP Objective Assessments Start: 08/05/19 08:19 Freq: NEEDED Status: Active Protocol: Document 08/05/19 12:09 AW (Rec: 08/05/19 13:13 AW [id number]) Orientation Orientation/Cognition Level of Alertness Confusional State Orientation Name,Situation Language Function Ability Expressive Aphasia,Receptive Aphasia,Garbled Speech Safety Awareness Decreased Safety Awareness Comments Pt attends to conversation but answers with garbled speech and evidence of aphasia, both receptive and expressive. He requires cues to slow down speech and attempt to enunciate. Gross Range of Motion Upper Extremity ROM Assessment Within Functional Limits Lower Extremity ROM Assessment Within Functional Limits Strength Upper Extremity Strength Assessment Bilaterally Impaired Lower Extremity Strength Assessment Bilaterally Impaired Comments Strength Comments B shoulder flexion/abduction 4 -/5. B hip flexion 4-/5. Unable to assess knee flexion or ankle strength secondary to communication deficits Sensation Assessment Comments Sensation Comments Unable to properly assess due to communication deficits. Pt reports good and equal sensation but PT is unable to determine if responses are appropriate. M6 PT-IP Treatment Start: 08/05/19 08:19 Freq: NEEDED Status: Active Protocol: Document 08/06/19 11:32 MT (Rec: 08/06/19 12:43 MT [email or web address]) Physical Therapy Treatment Education Education Provided Safety M7 PT-IP Assessment and Plan Start: 08/05/19 08:19 Freq: NEEDED Status: Active Protocol: Document 08/06/19 14:10 KAVON (Rec: 08/06/19 15:12 KAVON [email or web address]) PT Summary Assessment and Plan Potential Rehabilitation Potential Fair Status of Condition at Evaluation Evolving Summary Impairments ROM,Strength,Balance,Cognition ,Bed Mobility,Transfers,Gait, Activity Tolerance Assessment Summary Pt required sternal rub to wak up but refused to participate or keep his eyes open. Max A x2 for sit<>stand from chair w / FWW. Woo lift to get pt into bed. Pt waxes and wanes in his willingness to participate in therapy. 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 Pt was on 2L O2 and sats remained over 91%. Pts stated that he had been sleeping all day and seems to be getting worse. Goals Bed Mobility Goal Independent Transfer Goal Standby Assistance,Front Wheeled Walker Gait Goal Standby Assistance,Front Wheel Walker Gait Distance 100 Other Goals up/down 1 step with no railing CGA Days to Meet Goals 5 Frequency of Treatment Frequency Of Treatment Twice a Day Treatment Plan Physical Therapy Treatment Plan Bed Mobility Training,Transfer Training,Gait Training, Therapeutic Exercise,Balance Retraining,Discharge Planning, Hot or Cold Pack,Neuromuscular Re-ed,Coordination Retraining ,Manual Therapy Other Recommendations and Next Treatment gait training with FWW with Focus attention to SpO2, account executive healthcare training with spouse and children Recommendations To Nursing Amount of Assist Needed 2 Person Assist,Mechanical Lift Discharge Recommendations PT Discharge Recommendations Home with 24/ Assist,Home Health Equipment Needed for Home Before FWW for home use Discharge reviewed by Staci Thomas PTA
--- NOTE | 2019-08-06 17:05 | PC.NURSE ---
Addendum entered by Kellie Paulson R.N. 08/06/19 22:35: Pt awoke at ~1900, calm pleasant and cooperative initially. Pt given pm pills, including PO diltiazem. Pt then attempted to void and was unable. Bladder scan with I and O cath at 2000 for 600 ml. Pt then became progressively less cooperative, at times agitated and gesturing violently at staff. At this time pt is able to be redirected, is currently sitting up in chair and is cooperative. Original Note: Evening Shift Note: Pt checked on and assessed. Pt fairly sedated, mild reaction from light touch (squinting eyes), responsive to noxious stimulus of oral care. When asked if pt could open his eyes, he said no. PERRLA, 5 mm. RR 22-24, on 2 L NC SPO2, 94%. Pt given breathing treatment by RT with audible wheezing and WOB increasing after treatment. Pt's and daughter at bedside, discussing pt's care with Dr. Solomon at rounds. Dr. Solomon discontinued all sedating medications, requests minimal disruptions to pt tonight and reorientation. Physical restraint as a last resort, but Dr. Solomon would like pt to clear all sedating medications. Pt remains somnolent, but maintaining VS and airway. Will continue to monitor, notify MD with changes.
--- NOTE | 2019-08-06 18:27 | PM.PN.1 ---
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 The patient has been moderately sedated for most of the day. He received olanzapine 5 mg IM yesterday evening due to agitation. He was awake shortly in the morning per nursing staff. Patient minimally arouses to noxious stimuli. Plan to have nursing staff to minimize interruptions, reorient and redirect if patient were to awaken and become agitated, do not use medications to sedate, and if absolutely necessary use soft restraints for agitation. His daughter and are present at bedside and all questions have been answered. The patient is incontinent but voiding and eliminating without difficulty. Exam Vital Signs (past 8 hours): - 08/06/19 10:50 08/06/19 12:36 08/06/19 16:06 Temperature 97.3 F L Pulse Rate 91 H 91 H 90 Respiratory Rate 20 28 H 22 Blood Pressure 123/75 Pulse Oximetry 96 94 96 08/06/19 16:49 Temperature 98.4 F Pulse Rate 80 Respiratory Rate 24 Blood Pressure 144/82 H Pulse Oximetry Fraction of Inspired Oxygen 24 Oxygen Delivery Method Nasal Cannula Oxygen Flow Rate 2 Narrative Exam Narrative: General: Elderly male lying in bed sleeping, in no acute distress, maintaining airway, well-developed, somnolent and minimally arousable to noxious stimuli. HEENT: Normocephalic, atraumatic. External ears without defect. Pupils equal, round, and reactive to light. Anicteric sclerae and moist conjunctivae. Neck: Supple. No jugular venous distension. No lymphadenopathy or thyromegaly. Cardiovascular: Irregularly irregular without murmurs, rubs, or gallops appreciated. Pulmonary: Clear to auscultation bilaterally intermittent upper airway rhonchi. No crackles, or wheezes. Normal respiratory effort with no use of accessory muscles. Abdomen: Soft, bowel sounds present, nondistended. No hepatosplenomegaly or masses appreciated. Extremities: No clubbing, cyanosis, or edema. Skin: Normal temperature, turgor, and texture; no rash, ulcers, or subcutaneous nodules appreciated. 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 1. Acute metabolic encephalopathy on chronic dementia, present on admission. Improving. -Patient has mild to moderate dementia with sundowning per family at baseline secondary to previous hemorrhagic CVA. -Multifactorial and secondary to acute illness in ICU and medications (i.e. prednisone and benzodiazipines) in setting of underlying dementia. -Continue to reorient and redirect frequently. Keep patient awake and engaged throughout daytime and minimize interruptions at night. Support good sleep hygeine and provide melatonin at night. Avoid sedatives due to severe somnolence today. Will consider low dose seroquel 12.5 mg daily at bedtime to help with sleep maintenance and sundowning at discharge. 2. Acute on chronic hypoxemic respiratory failure, present on admission. Resolved. -Secondary to COPD exacerbation and viral and superimposed bacterial pneumonia. CHF ruled out. -Continue RT evaluation and treatment. Continue Duonebs every 4 hours while awake as needed and albuterol nebs every 2 hours as needed for shortness of breath. Continue supplemental oxygen to maintain oxygen saturation 88-92%. Patient is at baseline and off oxygen, he wears 2 L supplemental oxygen at home if needed. 3. COPD with acute exacerbation, present on admission. Resolved. -Patient presented in acute hypoxemic respiratory failure and positive for rhinovirus with significant wheezing. -Continue RT evaluation and treatment. Continue Duonebs every 4 hours while awake as needed and albuterol nebs every 2 hours as needed for shortness of breath. Continue supplemental oxygen to maintain oxygen saturation 88-92%. Patient is at baseline and off oxygen, he wears 2 L supplemental oxygen at home if needed. -Received methylprednisolone 125 mg IV x 1 in ED. Continued prednisone 40 mg daily x 5 days. 4. Community-acquired viral with superimposed bacterial pneumonia, present on admission. Resolved. -Chest x-ray demonstrated small perihilar infiltrate likely indicative of pneumonia. -Initial WBC 22.7 and procalcitonin 0.25. Initial WBC likely falsely high due to steroids patient was taking. Continue to trend WBC and procalcitonin which normalized. -Ordered complete pneumonia workup including: Respiratory viral PCR positive for Rhinovirus. Strep pneumonia negative and legionella urine antigen pending. Blood cultures x 2 have no growth to date. -Discontinued ceftriaxone 1 g IV daily and azithromycin 500 mg IV daily as patient has received 6 days of antibiotics total. 5. Acute atrial flutter with rapid ventricular response, present on admission. RVR resolved. -Patient presented with initial heart rate of approximately 180, after adenosine rhythm was confirmed to be atrial flutter. Patient and family does not report history of atrial fibrillation or atrial flutter. -[id number] score is 2. Discussed anticoagulation and given history of hemorrhagic stroke the patients family would like to hold off on starting anticoagulation for now until able to discuss with cardiology. -Echocardiogram demonstrated normal LV with EF 65-70% without significant valvular disease. -Received diltiazem 10 mg IV x 1 and then started on a diltiazem gtt in ED. Transitioned to PO diltiazem CD 360 mg daily with good heart control. He remains in atrial fibrillation. -Recommend outpatient follow-up with cardiology. 6. Hyperlipidemia, chronic, present on admission. Stable. -Continue home atorvastatin 80 mg daily at bedtime. Code: Full code DVT prophylaxis: Enoxaparin Disposition: Patient likely to discharge home with home health which is the families wishes versus intermediate facility for rehabilitation once metabolic encephalopathy resolved.
[2019-08-06] MEDS: MEMANTINE HCL 5 MG TABLET 10 MG PO (19:48)
[2019-08-06] MEDS: ATORVASTATIN 20 MG TABLET 80 MG PO (19:49)
[2019-08-06] MEDS: dilTIAZem CD 180 MG CAP 360 MG PO (19:56)
[2019-08-07 03:00] VITALS: BP 170/88; PULSE 89; RESP 40; TEMP 36.4; O2SAT 99
--- NOTE | 2019-08-07 04:54 | PC.NURSE ---
Identification And Records Commander Note-Patient sitting up in chair until 299, was awake, relaxed, but mildy suspicious, declines to drink or take snack, denied urge to void, brief dry. At 0300, 2 person assist with walker and gait belt to stand and attempt to void, patient became very fearful and shaking, although most of his speech is garbled, he says I'm going to fall Was not able to void, bladder scanned when back in bed, showed 278ml. He is still guarded and suspicious, has been sitting up in bed staring out of room with a fearful look on his face, giving him much reassurance. Short of breath with exertion, SPo2 >94% on 2L NC, RR 20s. Denies pain.
[2019-08-07 06:41] LABS: Alanine Aminotransferase 61 IU/L (<50); Albumin 4.2 g/dL (3.5-5.0); Albumin Globulin Ratio 1.2 (1.0-2.8); Alkaline Phosphatase 116 U/L (38-126); Aspartate Aminotransferase 46 IU/L (17-59); BUN Creatinine Ratio 48.8 (6-22); Blood Urea Nitrogen 39 mg/dL (9-20); Calcium 9.1 mg/dL (8.4-10.2); Carbon Dioxide 27 mmol/L (22-32); Chloride 102 mmol/L (98-107); Estimated Glomerular Filt Rate > 60.0 mL/min (>60); Globulin 3.5 g/dL (1.7-4.1); Glucose 147 mg/dL (80-110); HEMOLYSIS < 15 (0-50); Magnesium 2.3 mg/dL (1.6-2.3); Potassium 4.4 mmol/L (3.4-5.1); Sodium 138 mmol/L (137-145); Total Protein 7.7 g/dL (6.3-8.2)
[2019-08-07 06:53] LABS: Procalcitonin 0.11 ng/mL (<0.5)
[2019-08-07 06:56] LABS: Hemoglobin 15.1 g/dL (13.5-17.5); Mean Corpuscular HGB Conc 33.6 % (30-36); Mean Corpuscular Hemoglobin 29.5 PG (26-34); Mean Corpuscular Volume 87.9 fL (80-100); Platelet Count 235 X10^3/uL (150-400); Red Blood Cell Count 5.11 X10^6/uL (4.5-5.9); Red Cell Distribution Width 14.9 % (11.6-14.8); White Blood Cell Count 11.5 X10^3/uL (4.5-11.0)
[2019-08-07 07:04] LABS: Add Manual Diff / Slide Review YES
[2019-08-07 07:06] LABS: TSH w/ Reflex to FT4 6.16 uIU/mL (0.47-4.68)
[2019-08-07 07:26] LABS: Neutrophils Absolute Manual 8625 /uL (3000-5900); Total Cells Counted 100
[2019-08-07 07:27] LABS: RBC Morphology Normal Morphology
[2019-08-07 07:38] VITALS: BP 161/80; PULSE 90; RESP 26; TEMP 36.6; O2SAT 95
[2019-08-07 07:38] LABS: Free T4, Direct Thyroxine 1.14 ng/dL (0.78-2.19)
[2019-08-07] MEDS: ENOXAPARIN 40 MG/0.4 ML SYRINGE SUBCUT (08:16)
[2019-08-07] MEDS: SODIUM CHLORIDE 0.9% FLUSH 10 ML IV (08:17)
[2019-08-07] MEDS: TAMSULOSIN 0.4 MG CAPSULE PO (08:17)
[2019-08-07] MEDS: guaiFENesin ER 600 MG TAB PO (08:17)
[2019-08-07] MEDS: ALBUTEROL 2.5 MG/3 ML NEB (ADULT) INH (09:34)
[2019-08-07 09:39] VITALS: O2SAT 92
--- NOTE | 2019-08-07 09:57 | CM.DPC ---
Addendum entered by Gabrielle Boudreaux R.N. 08/07/19 12:36: Spoke to Dr. Solomon, hospitalist, and is suggesting to add SPRINKLING TRUCK DRIVER, as well as speech and bath aide. Put in new order with all disciplines. Will include new order and information of added on disciplines on fax sheet to [facility]. Attempted to call intake dept, left a message that other disciplines are being added. Addendum entered by Gabrielle Boudreaux R.N. 08/07/19 12:28: Contacted [facility], they can do start of care tomorrow. Received alternate fax number for DC summary, which is: [phone]. Addendum entered by Gabrielle Boudreaux R.N. 08/07/19 12:22: Dr. Solomon has seen patient, and stated that family was inquiring about getting wheel-chair, as well as caregiving resources. Spoke to P.T. and they gave this case coordinator a form showing rentals for wheel-chairs, and places, such as [employer], for equipment resources. Gave information to patient's spouse. Went over some caregiving agencies in the [employer] book with patient's as well. Additional family members will be here to assist with transfer for getting patient into the car, and home. Will fax [facility] summary as soon as it is received, and will contact them. Original Note: DCP Cont: Met with patient and family. and daughter in room. Introduced self and role. Discussed discharge plan, for the plan is home with home health. Did mention skilled rehab to family and patient, but they are wanting him home. Patient and living with daughter. Caregivers have stated that patient is 2 person assist. Asked family how he mobilized before hospital stay, and they mentioned that he was not using any DME supplies then. Stated that they were getting him a walker. Discussed in team rounds this morning. Ivelisse in P.T. will be seeing patient, and would be beneficial for her to work with family and do some teaching while they are in the room. P:DCP to follow closely, and be available should family change their mind. At this point, plan is for home with home health. Gabrielle Boudreaux RN/Shift Mgr
--- NOTE | 2019-08-07 10:15 | PT.IPTN ---
Current Diagnoses Pneumonia, unspecified organism (08/02/19) Physical Therapy Treatment Note M2 PT-IP Current Condition Start: 08/05/19 08:19 Freq: NEEDED Status: Active Protocol: Document 08/05/19 12:09 AW (Rec: 08/05/19 13:13 AW [id number]) Physical Therapy Current Condition Current Condition Evaluation Date 08/05/19 Treatment Diagnosis COPD exacerbation, impaired mobility Onset Date 08/02/19 Precautions Other Precautions Pt on 0.5 L hydrated O2 with SpO2 ~95% at rest Weight Bearing Status Weight Bearing Status Full Weight Bearing M3 PT-IP Subjective Start: 08/05/19 08:19 Freq: NEEDED Status: Active Protocol: Document 08/07/19 09:53 SP (Rec: 08/07/19 10:47 SP [id number]) Subjective Physical Therapy Visit Type Type Treatment Note Visit Start Time 09:53 Visit Stop Time 10:15 Total Visit Minutes 22 Notes Observed by STITCHING DEPARTMENT SUPERVISOR student. Physical Therapy Visit Comments Patient Comments Pt was up in chair with family in room when arrived. Patient Goals Wants to go home today. Therapy Pain Assessment Pain Present Pain Present Denied Pain M4 PT-IP Mobility and Gait Start: 08/05/19 08:19 Freq: NEEDED Status: Active Protocol: Document 08/07/19 09:53 SP (Rec: 08/07/19 10:47 SP [id number]) PT-Bed Mobility Assessment Rolling Type of Rolling Roll to Right Level of Assist Minimal Assistance,1 Person Assistance Supine to Sit Supine to Sit Minimal Assistance,1 Person Assistance,Bedrails Sit to Supine Sit to Supine Contact Guard Assistance,1 Person Assistance,Bedrails Scooting Scooting to Edge of Bed Contact Guard Assistance PT-Transfer Assessment Sit to and From Stand Sit to and from Stand Minimal Assistance,1 Person Assistance,Use of Upper Extremities Equipment Transfer Assistive Device Gait Belt,Front Wheeled Walker Orthotic/Prosthetic Devices or Brace: No Transfers Transfer Destination Bed,Chair Transfer Technique Stand Step Pivot Transfer Ability Level of Assist Minimal Assistance,1 Person Assistance,Use of Upper Extremities Comments Mobility Comments Pt was up in chair when arrived, family (daughter and ) in room. Pt was able to complete sit to stand from BSC Min A x1 with cuing for proper hand placement to push up from chair and proper use of FWW with body close for safety with upright posture step pivot to the bed, cued for body spacial awareness backing up to bed. Pt required total assist for tubing assist/management (O2, Pulse oximeter). Pt was able to complete sitting>supine CGA and supine sitting Min A of 1 while using bed rails. Pt required feedback for motor planning transfer secondary to SOB and cuing for diaphramatic breathing. Pt on 2L O2 with sat mid 90s decreased to 88% while briefly in supine recovered with in seconds with proper breathing. Gait Assessment Gait Gait Assistance Required: Contact Guard Assist,1 Person Assist Distance (Feet) 20 Able to Maintain Weight Bearing Status Yes During Gait Assistive Devices Assistive Device Gait Belt,Front Wheeled Walker Orthotic/Prosthetic Devices or Brace: No Gait Deviations General Gait Pattern Decreased Stride Length, Decreased Feet Clearance, Flexed Trunk,Narrow Based Gait Factors Limiting Gait Function Factors Limiting Gait Function Decreased Activity Tolerance, Decreased Strength,Difficulty Following Directions,Poor Balance,Poor Safety Awareness, Respiratory Distress Comments Gait Comments Pt was able to walk room distance to bathroom door and back CGA using FWW with daughter and while providing caregiver training. Cued /daughter provide support at gait belt, give patient cues for upright posture, body closer and within FWW, increased stride and foot clearance for safety. Pt needed max cuing for obstacle management around end of bed and total assist for tubing mgt and slow purse breathing to assist SOB, 1 stopped stand rest for recovery. Maintained stable Sat during gait. Stair Climbing Assessment Evaluation Level of Assist On Stairs Minimal Assistance,1 Person Assistance Devices Stair Climbing Assistive Devices Front Wheel Walker Technique/Endurance Stair Climbing Direction Ascend and Descend Stair Climbing Technique Step to Step Number of Steps Climbed 1 Stair Climbing Set # Repetitions (reps) 1 Comments Stair Climbing Comments Pt was able to complete step to gait pattern onto one step to assimulate entering home threshold using FWW Min A x1 with daughter and max cues for patterning LE and hand placement on fWW for support and safety. No LOB, stable PT-Balance Assessment Sitting Balance and Reactions Static Sitting Balance Ability Good Dynamic Sitting Balance Ability Good Standing Balance and Reactions Static Standing Balance Ability Fair Dynamic Standing Balance Ability Poor M5 PT-IP Objective Assessments Start: 08/05/19 08:19 Freq: NEEDED Status: Active Protocol: Document 08/05/19 12:09 AW (Rec: 08/05/19 13:13 AW [id number]) Orientation Orientation/Cognition Level of Alertness Confusional State Orientation Name,Situation Language Function Ability Expressive Aphasia,Receptive Aphasia,Garbled Speech Safety Awareness Decreased Safety Awareness Comments Pt attends to conversation but answers with garbled speech and evidence of aphasia, both receptive and expressive. He requires cues to slow down speech and attempt to enunciate. Gross Range of Motion Upper Extremity ROM Assessment Within Functional Limits Lower Extremity ROM Assessment Within Functional Limits Strength Upper Extremity Strength Assessment Bilaterally Impaired Lower Extremity Strength Assessment Bilaterally Impaired Comments Strength Comments B shoulder flexion/abduction 4 -/5. B hip flexion 4-/5. Unable to assess knee flexion or ankle strength secondary to communication deficits Sensation Assessment Comments Sensation Comments Unable to properly assess due to communication deficits. Pt reports good and equal sensation but PT is unable to determine if responses are appropriate. M6 PT-IP Treatment Start: 08/05/19 08:19 Freq: NEEDED Status: Active Protocol: Document 08/07/19 09:53 SP (Rec: 08/07/19 10:47 SP [id number]) Physical Therapy Treatment Education Education Provided Safety Equipment Issued Equipment Type and Company Daughter will be attaining FWW for DC home use. M7 PT-IP Assessment and Plan Start: 08/05/19 08:19 Freq: NEEDED Status: Active Protocol: Document 08/07/19 09:53 SP (Rec: 08/07/19 10:47 SP [id number]) PT Summary Assessment and Plan Potential Rehabilitation Potential Fair Status of Condition at Evaluation Evolving Summary Impairments ROM,Strength,Balance,Cognition ,Bed Mobility,Transfers,Gait, Activity Tolerance Assessment Summary Pt was on 2L O2 and sats remained over 91% during mobility, decreased to 88% during supine positioning but recovered within minutes. See Mobility comments. and daughter complete caregiver training including: BM, transfers, gait, step management using FWW and CGA- Min A. Daughter will attain FWW for use at home. Pt may go home when medically stable. Pt plans to go home with and daughter with 24/hr assist , home health PT. Pt was up in chair with all needs within reach and alarm on him with and daughter in room when left. Goals Bed Mobility Goal Independent Transfer Goal Standby Assistance,Front Wheeled Walker Gait Goal Standby Assistance,Front Wheel Walker Gait Distance 100 Other Goals up/down 1 step with no railing CGA Days to Meet Goals 5 Frequency of Treatment Frequency Of Treatment Twice a Day Treatment Plan Physical Therapy Treatment Plan Bed Mobility Training,Transfer Training,Gait Training, Therapeutic Exercise,Balance Retraining,Discharge Planning, Hot or Cold Pack,Neuromuscular Re-ed,Coordination Retraining ,Manual Therapy Other Recommendations and Next Treatment gait training with FWW with Focus attention to SpO2, home care companion training with spouse and children Recommendations To Nursing Amount of Assist Needed 1 Person Assist Discharge Recommendations PT Discharge Recommendations Home with / Assist,Home Health Equipment Needed for Home Before FWW for home use Discharge
--- NOTE | 2019-08-07 10:37 | OT.IP.TRT ---
Current Diagnoses Pneumonia, unspecified organism (08/02/19) Occupational Therapy Treatment Note M2 OT-IP Current Condition Start: 08/06/19 13:38 Freq: Status: Active Protocol: Document 08/06/19 11:58 [facility] (Rec: 08/06/19 14:12 [facility] [id number]) Occupational Therapy Current Condition Current Condition Evaluation Date 08/06/19 Treatment Diagnosis COPd exacerbation, acute hypoxemic respiratoy failure, decreased balance Diagnosis Onset Date 08/02/19 M3 OT- IP Subjective and Pain Start: 08/06/19 13:38 Freq: Status: Active Protocol: Document 08/07/19 10:37 [facility] (Rec: 08/07/19 13:44 [facility] [id number]) OT- Subjective Occupational Therapy Visit Type Type Treatment Note Visit Start Time 10:37 Visit Stop Time 11:34 Total Visit Minutes 57 Occupational Therapy Visit Comments Patient Comments After encouragement from therapist and family, pt agreed to shower. OT Pain Assessment Pain When Pain Assessed At Rest Pain Present Pain Present Denied Pain M4 OT- IP ADL's Start: 08/06/19 13:38 Freq: Status: Active Protocol: Document 08/07/19 10:37 [facility] (Rec: 08/07/19 13:44 [facility] [id number]) OT ADL-Dressing General Eval Upper Body Dressing Ability Moderate Assistance Lower Body Dressing Ability Maximum Assistance Areas Needing Assistance Pull-Over Shirt,Pants/Shorts, Socks,Shoes Comments OT Dressing Comments Pt needing more assist for LB dressing due to too tired from just showering. At home educated family may need two person assist for showering, toileting and LB dressing needs at times. OT ADL-Toileting Comments OT Toileting Comments Recommended family get BSC and urinal. OT ADL-Bathing Bathing Type Bathing Type Shower General Evaluation Bathing Ability Maximal Assistance Areas Needing Assistance Retrieving/Setting Up Items, Wash/Dry Upper Body,Wash/Dry Back,Wash/Dry Perineal Area, Wash/Dry Lower Extremities Comments OT Bathing Comments Pt only able to assist minimally due to fatigue. Pt having to be on 2L of O2 and reading 91-95%. M5 OT- IP IADL's Start: 08/06/19 13:38 Freq: Status: Active Protocol: Document 08/06/19 11:58 [facility] (Rec: 08/06/19 14:12 [facility] [id number]) OT-Instrumental Activities of Daily Living Home Safety Awareness Awareness of Need for Assistance at Home Decreased Awareness Ability to Problem Solve Emergency Unable to Problem Solve Situations Medication Management Medication Management Caregiver Administers Money Management Money Management Caregiver Provides Assistance Meal Preparation Meal Preparation Caregiver Provides Assist Telephone Operator Receptionist Telephone Operator Receptionist Caregiver Provides Assist Driving Driving Caregiver Provides Assist M6 OT- IP Functional Cognition Start: 08/06/19 13:38 Freq: Status: Active Protocol: Document 08/07/19 10:37 [facility] (Rec: 08/07/19 13:44 [facility] [id number]) Cognitive Factors Limiting Selfcare Function Cognitive Comments Cognitive Assessment Comments Pt still needing step by step verbal cues and physical cues from showering needs. Pt's and daughter have good understanding to be able to assist pt for all needs. M7 OT- IP Mobility and Balance Start: 08/06/19 13:38 Freq: Status: Active Protocol: Document 08/07/19 10:37 [facility] (Rec: 08/07/19 13:44 [facility] [id number]) OT-Transfer Assessment Sit to and From Stand Sit to and from Stand Moderate Assistance,1 Person Assistance,2 Person Assistance Transfers Transfer Ability Moderate Assistance,1 Person Assistance,2 Person Assistance Technique Transfer Destination Chair,Shower Stall,Wheelchair Transfer Technique Stand Step Pivot Devices Transfer Assistive Devices Gait Belt,Front Wheeled Walker Comments Mobility Comments Pt needing from LUZMA x 1 to MOD A x 2 pending how tired pt is. Pt's and daughter able to mobilize pt safely. Recommended that he will need at FWW and wc for longer distances. OT- Balance Assessment Sitting Balance and Reactions Static Sitting Balance Ability Good Dynamic Sitting Balance Ability Fair Standing Balance and Reactions Static Standing Balance Ability Poor M8 OT- IP Objective Assessments Start: 08/06/19 13:38 Freq: Status: Active Protocol: Document 08/06/19 11:58 [facility] (Rec: 08/06/19 14:12 [facility] [id number]) OT Gross Range of Motion Upper Extremity Range of Motion Assessment Bilaterally Impaired ROM Impairments BUE shoulder flexion 0-100. OT Strength Upper Extremity Strength Assessment Within Functional Limits M9 OT- IP Assessment and Plan Start: 08/06/19 13:38 Freq: Status: Active Protocol: Document 08/07/19 10:37 [facility] (Rec: 08/07/19 13:44 [facility] [id number]) OT Summary Assessment and Plan Potential Rehabilitation Potential Good Analytic Complexity at Evaluation Low Summary OT Impairments Balance,Functional Cognition, Functional Mobility,Grooming, Dressing,Toileting,Bathing, Toilet Transfers,Shower Transfers Progress Towards Goals Progressing Toward Goals,Slow Progress due to Activity Tolerance Assessment Summary Pt going home today. Pt's and daughter have demonstrated good understanding and safety to assist pt at this time. However would benefit from home health OT for education in home environment and routine. Pt going home today with 28/03 assist and home health. Frequency of Treatment Frequency Of Treatment Once a Day Treatment Plan OT Treatment Plan ADL Training,Functional Cognition Training,Functional Mobility,Patient/Family Education,Discharge Planning Discharge Recommendations OT Discharge Recommendations Home with 24/7 Assist,Home Health Home Equipment Needs FWW, BSC, WC
--- NOTE | 2019-08-07 12:40 | PM.DS.1 ---
History of Present Illness History of Present Illness Date Patient Seen: 08/02/19 Chief complaint: Respiratory distress Narrative: Written by Dr. Hernandez: Mr. 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 Current symptoms started yesterday evening which she reports as constant shortness of breath requiring persistent supplemental oxygen at home. He presented to the emergency room approximately 5 days ago with similar symptoms, but yesterday his symptoms were worse than previous. He seemed to get a little bit better after visiting the emergency room. He was given prednisone and Bactrim. He did not fully improve as far as his breathing an he is also been having nasal congestion and runny nose. He reports a high fever prior to the 1st ER visit, and consistent chills since. However, last night he became more short of breath than he had previously. He attempted home nebulizers but when this did not improve he decided to come to the emergency room. He reports entire family has been sick with cold symptoms including nasal congestion, runny nose, and cough. He did receive his flu shot this year. He called EMS, who gave a nebulizer EN route and was placed on CPAP. He was switched to BiPAP in the emergency room, given further nebulizer treatments, as well as steroids. His vitals were notable for a heart rate around 180 on telemetry, he was given adenosine which revealed an atrial flutter rhythm. He was given IV Dilt and then started on a diltiazem drip with improved rate control. He was transferred to the ICU on BiPAP therapy. In the ICU, telemetry revealed atrial flutter rhythm with a tachycardic rate in the 100s, he is tachypneic in the upper 20s to 30s and on high inspiratory and expiratory pressures. Pressures were decreased as was oxygen as patient was satting around 97%. Patient now on BiPAP of 10/5 at 30% O2 and saturating in the mid to low 90s. Discharge Providers Provider Date of admission: 08/02/19 08:00 Discharge Date: 08/07/19 Primary care physician: Yogesh Stoddard MD Consults: 08/02/19 06:52 Consult to Respiratory Therapy Evaluate & Treat Comment: Physician Instructions: Evaluate and treat 08/03/19 09:36 Consult to Speech Therapy Evaluate & Treat Comment: Physician Instructions: Evaluate and treat 08/03/19 11:09 Consult to Dietitian, Adult Routine Comment: Reason For Exam: initiated from geoffrey 08/04/19 09:27 Consult to Physical Therapy Evaluate & Treat Comment: Physician Instructions: Evaluate and Treat 08/05/19 10:34 Consult to Occupational Therapy Evaluate & Treat Comment: Physician Instructions: Evaluate and treat Consult to Speech Therapy Evaluate & Treat Comment: Physician Instructions: please do cognitive testing: [facility] 08/05/19 13:19 Consult to Home Health Routine Comment: [facility] has accepted the referral Reason For Exam: home health RN/OT/PT at d/c 08/07/19 12:32 Consult to Home Health Routine Comment: Reason For Exam: Nursing, [employer], P.T, O.T, Speech Therapy, bath aide Discharge provider: Shelia Solomon DO Summary Hospital Course Discharge Diagnosis: 1. Acute metabolic encephalopathy on chronic dementia, present on admission. Improving. 2. Acute on chronic hypoxemic respiratory failure, present on admission. Resolved. 3. COPD with acute exacerbation, present on admission. Resolved. 4. Community-acquired viral with superimposed bacterial pneumonia, present on admission. Resolved. 5. Acute atrial flutter with rapid ventricular response, present on admission. RVR resolved. 6. Hyperlipidemia, chronic, present on admission. Stable. 7. BPH with urinary retention, chronic, present on admission. Stable. 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 1. Acute metabolic encephalopathy on chronic dementia, present on admission. Acute metabolic encephalopathy resolved. -Patient has mild to moderate dementia with sundowning per family at baseline secondary to previous hemorrhagic CVA. -Multifactorial and secondary to acute illness in ICU and medications (i.e. prednisone and benzodiazipines) in setting of underlying dementia. -Continued to reorient and redirect frequently. Kept patient awake and engaged throughout daytime and minimize interruptions at night. Support good sleep hygeine and provide melatonin at night. Discharged with low dose seroquel 12.5 to 25 mg daily at bedtime to help with sleep maintenance and sunding. -Patient does not seem to follow conversation and stutters often. Per patient's spouse and daughter the patient is at his baseline mentation. Highly recommended residential facility for continued rehabilitation as patient has generalized weakness but family has declined and adamant that they would like to take him home. Arrange for home health with PT/OT/ST/Nursing/Home Health Aide/[employer]. 2. Acute on chronic hypoxemic respiratory failure, present on admission. Resolved. -Secondary to COPD exacerbation and viral and superimposed bacterial pneumonia. CHF ruled out. -Continued RT evaluation and treatment. Continued Duonebs every 4 hours while awake as needed and albuterol nebs every 2 hours as needed for shortness of breath. Continued supplemental oxygen to maintain oxygen saturation 88-92%. Patient is at baseline and off oxygen, he wears 2 L supplemental oxygen at home if needed. 3. COPD with acute exacerbation, present on admission. Resolved. -Patient presented in acute hypoxemic respiratory failure and positive for rhinovirus with significant wheezing. -Continued RT evaluation and treatment. Continued Duonebs every 4 hours while awake as needed and albuterol nebs every 2 hours as needed for shortness of breath. Continued supplemental oxygen to maintain oxygen saturation 88-92%. Patient is at baseline and off oxygen, he wears 2 L supplemental oxygen at home if needed. -Received methylprednisolone 125 mg IV x 1 in ED. Continued prednisone 40 mg daily x 5 days. 4. Community-acquired viral with superimposed bacterial pneumonia, present on admission. Resolved. -Chest x-ray demonstrated small perihilar infiltrate likely indicative of pneumonia. -Initial WBC 22.7 and procalcitonin 0.25. Initial WBC likely falsely high due to steroids patient was taking. Continue to trend WBC and procalcitonin which normalized. -Ordered complete pneumonia workup including: Respiratory viral PCR positive for Rhinovirus. Strep pneumonia negative and legionella urine antigen pending. Blood cultures x 2 have no growth to date. -Continued ceftriaxone 1 g IV daily and azithromycin 500 mg IV daily x 6 days total. 5. Acute atrial flutter with rapid ventricular response, present on admission. RVR resolved. -Patient presented with initial heart rate of approximately 180, after adenosine rhythm was confirmed to be atrial flutter. Patient and family does not report history of atrial fibrillation or atrial flutter. -[id number] score is 4 placing him at moderate to high risk of VTE. Discussed anticoagulation and given history of hemorrhagic stroke the patients family would like to hold off on starting anticoagulation for now until able to discuss with PCP and/or cardiology. -Echocardiogram demonstrated normal LV with EF 65-70% without significant valvular disease. -Received diltiazem 10 mg IV x 1 and then started on a diltiazem gtt in ED. Transitioned to PO diltiazem CD 360 mg daily with good heart control. He remains in atrial fibrillation with HR 80-90's. -Recommend outpatient referral to cardiology for evaluation and treatment. 6. Hyperlipidemia, chronic, present on admission. Stable. -Continued home atorvastatin 80 mg daily at bedtime. 7. BPH with urinary retention, chronic, present on admission. Stable. -Started and continued tamsulosin 0.4 mg daily. Used in out catheter as needed for urinary retention. Exam Vital Signs (past 8 hours): - 08/07/19 07:38 08/07/19 09:39 Temperature 97.8 F Pulse Rate 90 Respiratory Rate 26 H Blood Pressure 161/80 H Pulse Oximetry 95 92 Fraction of Inspired Oxygen 24 Oxygen Delivery Method Nasal Cannula Oxygen Flow Rate 2 Narrative Exam Narrative: General: Elderly male lying in bed, in no acute distress, well-developed, awake and alert, stutters and does not follow conversation well but per family this is baseline mentation. HEENT: Normocephalic, atraumatic. External ears without defect. Pupils equal, round, and reactive to light. Anicteric sclerae and moist conjunctivae. Neck: Supple. No jugular venous distension. No lymphadenopathy or thyromegaly. Cardiovascular: Irregularly irregular without murmurs, rubs, or gallops appreciated. Pulmonary: Clear to auscultation bilaterally intermittent upper airway rhonchi. No crackles, or wheezes. Normal respiratory effort with no use of accessory muscles. Abdomen: Soft, bowel sounds present, nontender, nondistended. No hepatosplenomegaly or masses appreciated. Extremities: No clubbing, cyanosis, or edema. Skin: Normal temperature, turgor, and texture; no rash, ulcers, or subcutaneous nodules appreciated. Neurological: Cranial nerves grossly intact. Psychiatric: Normal mood and affect. Alert and oriented to person and possibly place. Stutters frequently and does not follow conversation well. Moderate to severe dementia at baseline due to hemorrhagic stroke with short-term memory recall deficit and sundowning behaviors. Delirium resolved. Objective Labs Result Diagrams: 08/07/19 06:08 08/07/19 06:08 Labs: Laboratory Results - last 24 hr 08/07/19 08/07/19 08/07/19 r, 06:08 06:08 06:08 WBC 11.5 H RBC 5.11 Hgb 15.1 Hct 45.0 MCV 87.9 MCH 29.5 MCHC 33.6 RDW 14.9 H Plt Count 235 Neut % (Auto) Not Reportable Lymph % (Auto) Not Reportable [place] % (Auto) Not Reportable Eos % (Auto) Not Reportable Baso % (Auto) Not Reportable Lymph # (Auto) Not Reportable [place] # (Auto) Not Reportable Baso # (Auto) Not Reportable Total Counted 100 Seg Neutrophils % 72.0 H Band Neutrophils % 3.0 Lymphocytes % (Manual) 10.0 L Atypical Lymphs % 1.0 H Monocytes % (Manual) 13.0 H Metamyelocytes % 1.0 H Neutrophils # (Manual) 8625 H RBC Morphology Normal morphology Sodium 138 Potassium 4.4 Chloride 102 Carbon Dioxide 27 BUN 39 H Creatinine 0.80 Estimated GFR > 60.0 BUN/Creatinine Ratio 48.8 H Glucose 147 H Calcium 9.1 Magnesium 2.3 Total Bilirubin 1.0 AST 46 ALT 61 H Alkaline Phosphatase 116 Total Protein 7.7 Albumin 4.2 Globulin 3.5 Albumin/Globulin Ratio 1.2 Procalcitonin 0.11 TSH Free T4 08/07/19 06:08 WBC RBC Hgb Hct MCV MCH MCHC RDW Plt Count Neut % (Auto) Lymph % (Auto) [place] % (Auto) Eos % (Auto) Baso % (Auto) Lymph # (Auto) [place] # (Auto) Baso # (Auto) Total Counted Seg Neutrophils % Band Neutrophils % Lymphocytes % (Manual) Atypical Lymphs % Monocytes % (Manual) Metamyelocytes % Neutrophils # (Manual) RBC Morphology Sodium Potassium Chloride Carbon Dioxide BUN Creatinine Estimated GFR BUN/Creatinine Ratio Glucose Calcium Magnesium Total Bilirubin AST ALT Alkaline Phosphatase Total Protein Albumin Globulin Albumin/Globulin Ratio Procalcitonin TSH 6.16 H Free T4 1.14 Discharge Plan Discharge Plan Patient Disposition: Home Health Service Discharge comment: You're being discharged home with home health for PT/OT/ST/Nursing/Home Health Aide/[facility] [employer]. We are highly recommending residential facility for rehabilitation which you have kindly declined. You had rhinovirus which caused viral and bacterial pneumonia which has been treated with antibiotics. Your COPD exacerbation was treated with steroids. Please continue all of your home inhalers as previously prescribed (make sure to rinse mouth after using budesonide). You have been prescribed Mucinex 1200 mg twice daily for 3-5 more days and an Acapella to blow in 10 times an hour while awake both to help break up thick secretions and expectorate them out. You have an irregular heartbeat called atrial fibrillation/flutter for which you have been started on diltiazem CD 360 mg daily at bedtime. Highly recommend consideration of blood thinner to prevent blood clots and stroke which you may discuss with his primary care physician. Please follow up with his primary care physician, Dr. Stoddard, at his scheduled appointment for hospital follow-up and referral to Cardiology. He has been prescribed Seroquel 12.5-25 mg daily at bedtime to help with sundowning and sleep maintenance in addition to melatonin. He has been prescribed tamsulosin 0.4 mg daily for his prostate enlargement and urinary retention. Discharge orders & Medications Prescriptions: New polyethylene glycol 3350 17 gram Powder In Packet 17 gram PO DAILY PRN (Reason: Constipation) Qty: 30 RF: 0 diltiazem HCl [Cardizem CD] 180 mg Capsule,Extended Release 24hr 360 mg PO BEDTIME Qty: 60 RF: 0 melatonin 3 mg Tablet 6 mg PO BEDTIME Qty: 60 RF: 0 bisacodyl 10 mg Suppository 10 mg [place] DAILY PRN (Reason: Constipation) Qty: 10 RF: 0 docusate sodium [DOK] 100 mg Capsule 100 mg PO BID PRN (Reason: Constipation) Qty: 60 RF: 0 guaifenesin [Mucus Relief ER] 600 mg Tablet Extended Release 12hr 1,200 mg PO BID 5 Days Qty: 20 RF: 0 tamsulosin [Flomax] 0.4 mg Capsule 0.4 mg PO DAILY Qty: 30 RF: 0 quetiapine [Seroquel] 25 mg tablet 12.5 - 25 mg PO BEDTIME Qty: 30 RF: 0 Continued memantine 10 mg tablet 10 mg PO QPM RF: 0 atorvastatin 80 mg tablet 80 mg PO BEDTIME RF: 0 albuterol sulfate 2.5 mg /3 mL (0.083 %) solution for nebulization 2.5 mg INHALATION .COMPLEX PRN (Reason: shortness of breath) RF: 0 Brovana 15 mcg/2 mL Solution For Nebulization 15 mcg INHALATION BID RF: 0 budesonide 0.5 mg/2 mL Suspension For Nebulization 0.5 mg INHALATION BID RF: 0 Discontinued prednisone 20 mg tablet 40 mg PO DAILY Qty: 10 RF: 0 sulfamethoxazole-trimethoprim [Bactrim DS] 800-160 mg tablet 1 tab PO BID 7 Days Qty: 14 RF: 0 No Action (DME) nebulizers Misc See Rx Instructions .ROUTE .MEDSUPPLY Qty: 1 RF: 0 (DME) DISABLED PARKING [place]MIT Qty: 1 RF: 0 Follow up/Referrals: Yogesh Stoddard MD [Primary Care Provider] - 3-5 Days (Follow-up appointment scheduled with Dr. Stoddard for 08/22 at 10:00 AM.) Diet/Activity/Treatments Diet: Diet as Tolerated, Low-fat, Low-sodium and Low-cholesterol Activity: Activity as tolerated with forward wheeled walker and physical and occupational therapy Oxygen: 2 L continuous Visit Report/Discharge Packet Instructions: Dementia, DI for Chronic Obstructive Pulmonary Disease, DI for Pneumonia -- Adult, DI for Atrial Fibrillation, DI for Benign Prostatic Hyperplasia, Dementia and Sleep Issues, Tamsulosin (By mouth), Quetiapine (By mouth) Visit Report Forms: Patient Portal/API, Stroke Signs & Symptoms Discharge Data Primary Care Provider: Yogesh Stoddard
== END 2019-08-07 13:45 | disposition home health service (06) | DRG 193 ==
LOC: ED 06:56 → AC 08:00 → ICU 09:29
PROVIDERS: Emergency Medicine; Family Medicine; Internal Medicine; Nurse Practitioner Adult Health; Admitting Provider Internal Medicine; Emergency Provider Emergency Medicine; PCP Student in an Organized Health Care Education/Training Program; Visit Provider Internal Medicine
DX: J15.9 Unspecified bacterial pneumonia (principal); J96.01 Acute respiratory failure with hypoxia; G93.41 Metabolic encephalopathy; G92 Toxic encephalopathy; J44.1 Chronic obstructive pulmonary disease with (acute) exacerbation; I48.92 Unspecified atrial flutter; B34.8 Other viral infections of unspecified site; F03.90 Unspecified dementia, unspecified severity, without behavioral disturbance, psychotic disturbance, mood disturbance, and anxiety; J12.89 Other viral pneumonia; E78.5 Hyperlipidemia, unspecified; Z87.891 Personal history of nicotine dependence; T42.4X5A Adverse effect of benzodiazepines, initial encounter; T38.0X5A Adverse effect of glucocorticoids and synthetic analogues, initial encounter
CPT/HCPCS: 36415; 36569; 36592; 36600; 71045; 80048; 80053; 81001; 82550; 82805; 83605; 83735; 83880; 84145; 84439; 84443; 84484; 85025; 85379; 85610; 85730; 87040; 87086; 87150; 87205; 87449; 87633; 87797; 92610; 93005; 93041; 93306; 94640; 94660; 94760; 96365; 96366; 96375; 96376; 97116; 97165; 97530; 97535; 99283; 99291; J0696; J1630; J1642; J1650; J1940; J2060; J2930; J7613; S0166

== ENCOUNTER 2019-08-13 16:44 | Emergency (ER) | payer MEDICARE, OTHER, SELFPAY ==
[2019-08-02 08:09] VITALS: BMI 21.7
[2019-08-03 08:00] VITALS: PULSE 96; RESP 29; O2SAT 100
[2019-08-13] VITALS (9 sets, daily range): BP systolic 103–139; BP diastolic 59–84; PULSE 77–94; RESP 28–31; TEMP 36.4; O2SAT 86–97; BMI 21.7
[2019-08-13] MEDS: ALBUTEROL/IPRATROPIUM 3 ML AMPUL 6 ML INH (18:00)
--- NOTE | 2019-08-13 18:00 | DI.RAD.S_ITS ---
PROCEDURE: XR CHEST 1V INDICATIONS: INCREASING SHORTNESS OF BREATH TECHNIQUE: One view of the chest was acquired. COMPARISON: [facility], CR, XR CHEST 1V, 08/05/2019, 14:58. FINDINGS: Surgical changes and devices: None. Lungs and pleura: Scattered subsegmental atelectasis and/or scarring. No focal consolidation. No pleural effusions or pneumothorax. Mediastinum: Mediastinal contours appear normal. Heart size is normal. Bones and chest wall: No suspicious bony lesions. Overlying soft tissues appear unremarkable. IMPRESSION: Scattered atelectasis/scarring. No acute disease Dictated by: Gunnar Suresh M.D. on 08/13/2019 at 18:33 Approved by: Gunnar Suresh M.D. on 08/13/2019 at 18:34
--- NOTE | 2019-08-13 18:07 | ED.GENADULT ---
HPI - General Adult General Chief complaint: Abdominal Pain Stated complaint: Severe Abd Pain and Slow Breathing Time Seen by Provider: 08/13/19 17:53 Source: patient and family Mode of arrival: Wheelchair Limitations: no limitations History of Present Illness HPI narrative: 78-year-old male with a history of COPD is on home oxygen. I have evaluated him in the past. Here for evaluation of abdominal pain. According to the patient's family the seems to start last evening. They do have a home health nurse. A Cottrell catheter was placed last evening secondary to urinary retention. Family states that approximately 1 L of urine returned after the catheter was placed. Patient is also on home oxygen. He was started on antibiotics last evening however no steroids. Family reports that they do have oxygen at home despite him running out of oxygen on the tank he was using for short period of time. He also has a recent diagnosis of atrial flutter. Is on diltiazem for this. Family states that his last bowel movement was this morning. Despite his respiratory status his family and the patient states that he is at baseline with regard to this. They do feel like he is having an episode of pneumonia however is on antibiotics started last evening for this. He is here for abdominal pain. Related Data Home Medications Medication Instructions Recorded Confirmed memantine 10 mg tablet 10 mg PO QPM 06/28/19 08/13/19 Brovana 15 mcg INHALATION BID 08/02/19 08/13/19 albuterol sulfate 2.5 mg INHALATION .COMPLEX PRN 08/02/19 08/13/19 budesonide 0.5 mg INHALATION BID 08/02/19 08/13/19 diltiazem HCl [Cartia XT] 360 mg PO BEDTIME 08/13/19 08/13/19 guaifenesin [Mucus Relief ER] 600 mg PO [id number] 08/13/19 08/13/19 sulfamethoxazole-trimethoprim 1 tab PO BID 08/13/19 08/13/19 tamsulosin 0.4 mg PO BEDTIME 08/13/19 08/13/19 Previous Rx's Medication Instructions Recorded diltiazem HCl [Cardizem CD] 360 mg PO BEDTIME #60 cap 08/07/19 prednisone 40 mg PO DAILY #16 tab 08/13/19 Allergies Allergy/AdvReac Type Severity Reaction Status Date / Time aspirin AdvReac Severe h/o Verified 07/05/19 11:18 hemorrhagic stroke Review of Systems Review of Systems Narrative: Provided by patient and family Constitutional Constitutional: Denies fever(s) Cardiovascular Cardiovascular: Denies chest pain and Reports dyspnea Respiratory Respiratory: Reports cough and Reports dyspnea Comments: On antibiotics Gastrointestinal Gastrointestinal: Reports abdominal pain, Denies change in stool character, Denies nausea and Denies vomiting Genitourinary Comments: Cottrell catheter in place Musculoskeletal Musculoskeletal: Denies myalgias and Denies arthralgias Integumentary/Breasts Skin/Breast: Denies lesions and Denies rash Neurologic Neurologic: Denies behavioral changes Psychiatric Psychiatric: Denies behavioral changes Hematologic/Lymphatic Hematologic/Lymphatic: Denies easy bleeding and Denies easy bruising Patient History Medical History COPD (chronic obstructive pulmonary disease) (Chronic ~1999) Dementia (Chronic ~2014) Hypothyroidism (Chronic) Melanoma (Chronic ~2015) Stroke (Inactive ~2014) Social History household members: spouse and children Smoking Status: Former smoker Smoking Status: Former smoker alcohol intake frequency: a few times a month Substance Use Type: does not use Exam Initial Vital Signs Initial Vital Signs: Vital Signs Temperature 97.5 F L 08/13/19 17:01 Pulse Rate 77 08/13/19 17:01 Respiratory Rate 28 H 08/13/19 17:01 Blood Pressure 103/62 08/13/19 17:01 Pulse Oximetry 93 08/13/19 17:01 Const General: cooperative, comfortable and well developed Orientation: alert and awake [facility] Head: normal to inspection and normocephalic Resp Effort & Inspection: not labored and tachypneic Auscultation: rales Cardio Rate: regular rate Pulses: radial pulses present GI Inspection: non-distended Palpation: soft, No firm and tender (Diffusely tender) Skin Lesions: no lesions Rashes: no rashes Neuro General: alert and awake Other: Unchanged per family Extrem General: normal to inspection and capillary refill normal Course Orders Ordered: ED Orders 08/13/19 18:00 XR chest 1V Stat 08/13/19 18:13 CT abdomen pelvis w con Stat 08/13/19 18:15 B Type Natriuretic Peptide Stat Complete Blood Count AUTO DIFF Stat Comprehensive Metabolic Panel Stat Lactate (Lactic Acid) Stat Lipase Stat Partial Thromboplastin Time Stat Procalcitonin Stat Prothrombin Time INR Stat Troponin I Stat 08/13/19 18:35 Urine Microscopic Stat Discontinued Medications Albuterol/Ipratropium (Duoneb) 6 ml INH NOW ONE Stop: 08/13/19 17:58 Last Admin: 08/13/19 18:00 Dose: 6 ml Documented by: CARLOS Albuterol/Ipratropium (Duoneb) 3 ml INH NOW ONE Stop: 08/13/19 20:09 Last Admin: 08/13/19 20:13 Dose: 3 ml Documented by: CARLOS Sodium Chloride (Normal Saline 0.9%) 1,000 mls @ 125 mls/hr IV CONT ROBERTA Last Infusion: 08/13/19 21:31 Dose: 0 mls/hr Documented by: Infusion: 08/13/19 20:40 Dose: 999 mls/hr Documented by: Admin: 08/13/19 18:16 Dose: 125 mls/hr Documented by: MARIAM Prednisone (Deltasone) 40 mg PO NOW ONE Stop: 08/13/19 21:51 Last Admin: 08/13/19 22:00 Dose: 40 mg Documented by: MARIAM Vital Signs Vital signs: Vital Signs - 8 hr 08/13/19 17:30 08/13/19 18:00 08/13/19 18:30 Pulse Rate 89 94 H 91 H Respiratory Rate 31 H 30 H 30 H Blood Pressure [Right Arm] 121/59 L 118/62 Pulse Oximetry 86 L 97 89 L 08/13/19 20:04 08/13/19 20:12 08/13/19 20:13 Pulse Rate 89 90 90 Respiratory Rate 30 H 31 H 31 H Blood Pressure [Right Arm] 118/62 130/69 Pulse Oximetry 96 91 93 08/13/19 21:00 08/13/19 21:30 Pulse Rate 90 87 Respiratory Rate 28 H 28 H Blood Pressure [Right Arm] 139/84 131/63 Pulse Oximetry 95 93 Medical Decision Making Medical Records Medical records reviewed: Yes I reviewed the patient's medical records. Lab Data Lab results reviewed: Yes I reviewed the patient's lab results. Result diagrams: 08/13/19 18:15 08/13/19 18:15 Labs: Lab Results 1208/13/19 08/13/19 Range/Units 18:15 18:15 18:15 WBC 36.3 H* (4.5-11.0) X10^3/uL RBC 5.12 (4.5-5.9) X10^6/uL Hgb 14.8 (13.5-17.5) g/dL Hct 44.7 (41-53) % MCV 87.4 (80-100) fL MCH 28.8 (26-34) PG MCHC 33.0 (30-36) % RDW 15.0 H (11.6-14.8) % Plt Count 109 L (150-400) X10^3/uL Neut % (Auto) Not Reportable Lymph % (Auto) Not Reportable [place] % (Auto) Not Reportable Eos % (Auto) Not Reportable Baso % (Auto) Not Reportable Lymph # (Auto) Not Reportable [place] # (Auto) Not Reportable Baso # (Auto) Not Reportable Total Counted 100 Seg Neutrophils % 75.0 H (38-70) % Band Neutrophils % 3.0 (3-7) % Lymphocytes % (Manual) 2.0 L (25-45) % Monocytes % (Manual) 20.0 H (2-11) % Neutrophils # (Manual) 23301 H (3713-5945) /uL RBC Morphology Normal morphology PT 12.2 (10.1-12.7) SECONDS INR 1.1 (0.9-1.3) APTT 31 D (26.4-36.2) SECONDS Sodium 133 L (137-145) mmol/L Potassium 4.5 (3.4-5.1) mmol/L Chloride 95 L (98-107) mmol/L Carbon Dioxide 27 (22-32) mmol/L BUN 25 H (9-20) mg/dL Creatinine 1.10 (0.66-1.25) mg/dL Estimated GFR > 60.0 (>60) mL/min BUN/Creatinine Ratio 22.7 H (6-22) Glucose 195 H (80-110) mg/dL Lactate (0.7-2.1) mmol/L Calcium 9.2 (8.4-10.2) mg/dL Total Bilirubin 0.9 (0.2-1.3) mg/dL AST 37 (17-59) IU/L ALT 61 H (<50) IU/L Alkaline Phosphatase 170 H (38-126) U/L Troponin I (0.01-0.034) ng/mL B-Natriuretic Peptide < 100 (<100) Total Protein 7.8 (6.3-8.2) g/dL Albumin 4.2 (3.5-5.0) g/dL Globulin 3.6 (1.7-4.1) g/dL Albumin/Globulin Ratio 1.2 (1.0-2.8) Lipase (23-300) U/L Procalcitonin (<0.5) ng/mL Urine RBC (0-5/HPF) Urine WBC (0-5/HPF) Ur Squamous Epith Cells (0-5/HPF) Calcium Oxalate Crystal Urine Bacteria (None) Ur Culture Indicated? 08/13/19 08/13/19 08/13/19 Range/Units 18:15 18:15 18:15 WBC (4.5-11.0) X10^3/uL RBC (4.5-5.9) X10^6/uL Hgb (13.5-17.5) g/dL Hct (41-53) % MCV (80-100) fL MCH (26-34) PG MCHC (30-36) % RDW (11.6-14.8) % Plt Count (150-400) X10^3/uL Neut % (Auto) Lymph % (Auto) [place] % (Auto) Eos % (Auto) Baso % (Auto) Lymph # (Auto) [place] # (Auto) Baso # (Auto) Total Counted Seg Neutrophils % (38-70) % Band Neutrophils % (3-7) % Lymphocytes % (Manual) (25-45) % Monocytes % (Manual) (2-11) % Neutrophils # (Manual) (8881-0596) /uL RBC Morphology PT (10.1-12.7) SECONDS INR (0.9-1.3) APTT (26.4-36.2) SECONDS Sodium (137-145) mmol/L Potassium (3.4-5.1) mmol/L Chloride (98-107) mmol/L Carbon Dioxide (22-32) mmol/L BUN (9-20) mg/dL Creatinine (0.66-1.25) mg/dL Estimated GFR (>60) mL/min BUN/Creatinine Ratio (6-22) Glucose (80-110) mg/dL Lactate 2.0 (0.7-2.1) mmol/L Calcium (8.4-10.2) mg/dL Total Bilirubin (0.2-1.3) mg/dL AST (17-59) IU/L ALT (<50) IU/L Alkaline Phosphatase (38-126) U/L Troponin I < 0.012 (0.01-0.034) ng/mL B-Natriuretic Peptide (<100) Total Protein (6.3-8.2) g/dL Albumin (3.5-5.0) g/dL Globulin (1.7-4.1) g/dL Albumin/Globulin Ratio (1.0-2.8) Lipase 199 (23-300) U/L Procalcitonin 0.16 (<0.5) ng/mL Urine RBC (0-5/HPF) Urine WBC (0-5/HPF) Ur Squamous Epith Cells (0-5/HPF) Calcium Oxalate Crystal Urine Bacteria (None) Ur Culture Indicated? 08/13/19 Range/Units 18:35 WBC (4.5-11.0) X10^3/uL RBC (4.5-5.9) X10^6/uL Hgb (13.5-17.5) g/dL Hct (41-53) % MCV (80-100) fL MCH (26-34) PG MCHC (30-36) % RDW (11.6-14.8) % Plt Count (150-400) X10^3/uL Neut % (Auto) Lymph % (Auto) [place] % (Auto) Eos % (Auto) Baso % (Auto) Lymph # (Auto) [place] # (Auto) Baso # (Auto) Total Counted Seg Neutrophils % (38-70) % Band Neutrophils % (3-7) % Lymphocytes % (Manual) (25-45) % Monocytes % (Manual) (2-11) % Neutrophils # (Manual) (0155-4554) /uL RBC Morphology PT (10.1-12.7) SECONDS INR (0.9-1.3) APTT (26.4-36.2) SECONDS Sodium (137-145) mmol/L Potassium (3.4-5.1) mmol/L Chloride (98-107) mmol/L Carbon Dioxide (22-32) mmol/L BUN (9-20) mg/dL Creatinine (0.66-1.25) mg/dL Estimated GFR (>60) mL/min BUN/Creatinine Ratio (6-22) Glucose (80-110) mg/dL Lactate (0.7-2.1) mmol/L Calcium (8.4-10.2) mg/dL Total Bilirubin (0.2-1.3) mg/dL AST (17-59) IU/L ALT (<50) IU/L Alkaline Phosphatase (38-126) U/L Troponin I (0.01-0.034) ng/mL B-Natriuretic Peptide (<100) Total Protein (6.3-8.2) g/dL Albumin (3.5-5.0) g/dL Globulin (1.7-4.1) g/dL Albumin/Globulin Ratio (1.0-2.8) Lipase (23-300) U/L Procalcitonin (<0.5) ng/mL Urine RBC 0-1/hpf (0-5/HPF) Urine WBC 0-1/hpf (0-5/HPF) Ur Squamous Epith Cells 0-1 /hpf (0-5/HPF) Calcium Oxalate Crystal Few H Urine Bacteria None seen (None) Ur Culture Indicated? Cult not indicated Urine Dip Bedside Urine Glucose Negative Bedside Urine Bilirubin + 1 Bedside Urine Ketone - Negative Urine Specific [place] 1.015 Bedside Urine Occult Blood + Bedside Urine pH 6.0 Bedside Urine Protein +/- 15 Bedside Urine Urobilinogen +/- 1mg Bedside Urine Nitrite - Negative Bedside Urine Leukocytes - Negative Esterase Point of care testing: Urine Dip Bedside Urine Glucose Negative Bedside Urine Bilirubin + 1 Bedside Urine Ketone - Negative Urine Specific [place] 1.015 Bedside Urine Occult Blood + Bedside Urine pH 6.0 Bedside Urine Protein +/- 15 Bedside Urine Urobilinogen +/- 1mg Bedside Urine Nitrite - Negative Bedside Urine Leukocytes - Negative Esterase Imaging Data Chest x-ray: Radiologist's impression: [address] [address] XRay Report Signed Patient: Jose Bradshaw#: [id number] : 1940Acct:[id number] Age/Sex: 78 / MDate of Service: 08/13/19 Loc: ED Accession Number: [id number] Procedure: XR chest 1V Ordering Provider: Sohail Velasco D.O. PROCEDURE: XR CHEST 1V INDICATIONS: INCREASING SHORTNESS OF BREATH TECHNIQUE: One view of the chest was acquired. COMPARISON: [facility], , XR CHEST 1V, 08/05/2019, 14:58. FINDINGS: Surgical changes and devices: None. Lungs and pleura: Scattered subsegmental atelectasis and/or scarring. No focal consolidation. No pleural effusions or pneumothorax. Mediastinum: Mediastinal contours appear normal. Heart size is normal. Bones and chest wall: No suspicious bony lesions. Overlying soft tissues appear unremarkable. IMPRESSION: Scattered atelectasis/scarring. No acute disease Dictated by: Gunnar Suresh M.D. on 08/13/2019 at 18:33 Approved by: Gunnar Suresh M.D. on 08/13/2019 at 18:34 CT scan - abdomen: Radiologist's impression: [place] [address] CT Scan Report Signed Patient: Jose BradshawMR#: [id number] : 1940Acct:[id number] Age/Sex: 78 / MDate of Service: 08/13/19 Loc: ED Accession Number: [id number] Procedure: CT abdomen pelvis w con Ordering Provider: Sohail Velasco D.O. PROCEDURE: CT ABDOMEN PELVIS W CON INDICATIONS: Generalized abdominal pain TECHNIQUE: After the administration of intravenous contrast, 5 mm thick sections acquired from the diaphragm to the symphysis. 5 mm coronal and sagittal reformats were acquired. For radiation dose reduction, the following was used: automated exposure control, adjustment of mA and/or kV according to patient size. COMPARISON: None. FINDINGS: Image quality: Motion degraded examination ABDOMEN: Lung bases: Lung bases are not well seen due to motion artifact. There is bibasilar patchy aspiration and/or atelectasis. Heart size is normal. Solid organs: Subcentimeter hepatic hypodensity image 14 which is indeterminate. Gallbladder mildly distended otherwise unremarkable. Biliary system is non dilated. Pancreas enhances normally. Spleen is normal in size and enhancement. No adrenal nodules. Kidneys demonstrate normal size and enhancement, without hydronephrosis. Numerous bilateral renal cysts, left greater than right, which are not well evaluated due to severe motion artifact. Peritoneum and bowel: No evidence of bowel obstruction. Large amount of dense stool seen within the rectal vault. No free fluid or air. Colonic diverticulosis. Appendix is not clearly identified however no suspicious pericecal inflammatory changes are seen. It may be surgically absent. Nodes and vessels: No retroperitoneal or mesenteric adenopathy by size criteria. Aorta and inferior vena cava are normal in size. Miscellaneous: No ventral hernias. PELVIS: Genitourinary: Bladder wall thickness is normal. Incidentally noted penile prosthesis. Small fat-containing right inguinal hernia Bones: No suspicious bony lesions. No vertebral body compression fractures. Left hip arthroplasty. IMPRESSION: Bilateral lower lobe aspiration/atelectasis versus pneumonia. Marked amount of dense stool seen within the rectal vault raise the possibility of fecal impaction, severe constipation Mildly distended appearance of the gallbladder otherwise unremarkable and recommend correlation to LFTs. Additional chronic and incidental findings as above. Motion degraded examination Dictated by: Gunnar Suresh M.D. on 08/13/2019 at 20:04 Approved by: Gunnar Suresh M.D. on 08/13/2019 at 20:10 ECG Data Attestation: I personally reviewed and interpreted this ECG as follows: Prior ECG tracings: not available for review Interpretation: Atrial flutter Ventricular rate [address] T wave changes MDM Narrative Medical decision making narrative: Patient does have coarse breath sounds. He is on oxygen by nasal cannula. Received nebulizer treatments here in the ER which she states put him at his baseline respiratory status. He is currently on antibiotics for pneumonia. Given his respiratory status will send him home with some prednisone. This has worked for him in the past. His abdominal CT scan shows what appears to be constipation. His family states that he did have a bowel movement this morning. However prior to this he was having some leakage of watery stool. I do suspect this was Encopresis. They do have MiraLax at home which they state that they can use. He does have a Cottrell catheter in place. He was given fluids and had approximately 50 cc urine output over an hour. This is between 0.5 and 1 cc/kilos of urine output during this time. He is tolerating his oral intake. I did discuss potentially admitting him to the hospital given his respiratory status in his somewhat low urine output however the patient and the family would rather go home. Once again they state that he is at his baseline respiratory prater. No fevers. Was given a dose of steroids here in the ER and a prescription for the rest. They were continue his antibiotics. They're given return precautions and follow-up instructions. He expressed understanding and agreement with plan. Discharge Plan Departure Patient Disposition: Home Clinical Impression: Dehydration COPD (chronic obstructive pulmonary disease) Qualifiers: COPD type: unspecified COPD Qualified Code(s): J44.9 - Chronic obstructive pulmonary disease, unspecified Abdominal pain Qualifiers: Abdominal location: generalized Qualified Code(s): R10.84 - Generalized abdominal pain Constipation Qualifiers: Constipation type: unspecified constipation type Qualified Code(s): K59.00 - Constipation, unspecified Discharge Date/Time: 08/13/19 22:40 Instructions: Constipation, Acute Abdominal Pain, DI for Chronic Obstructive Pulmonary Disease, DI for Dehydration -- Adult Activity Restrictions/Additional Instructions: Recommend that you continue with the antibiotics that you are already taking. Start with the steroids as directed. Be sure to increase your fluid intake. By tomorrow morning there should be 250-500 cc of urine in the Cottrell bag. If there is not this amount in the morning increase your fluid intake and if you do not have a significant output by noon please return to the emergency department for further evaluation. Contact your primary provider. Prescriptions: New prednisone 20 mg tablet 40 mg PO DAILY Qty: 16 RF: 0 No Action memantine 10 mg tablet 10 mg PO QPM RF: 0 albuterol sulfate 2.5 mg /3 mL (0.083 %) solution for nebulization 2.5 mg INHALATION .COMPLEX PRN (Reason: shortness of breath) RF: 0 Brovana 15 mcg/2 mL Solution For Nebulization 15 mcg INHALATION BID RF: 0 budesonide 0.5 mg/2 mL Suspension For Nebulization 0.5 mg INHALATION BID RF: 0 diltiazem HCl [Cardizem CD] 180 mg Capsule,Extended Release 24hr 360 mg PO BEDTIME Qty: 60 RF: 0 diltiazem HCl [Cartia XT] 180 mg capsule,extended release 24hr 360 mg PO BEDTIME RF: 0 tamsulosin 0.4 mg capsule 0.4 mg PO BEDTIME RF: 0 guaifenesin [Mucus Relief ER] 600 mg Tablet Extended Release 12hr 600 mg PO [id number] RF: 0 sulfamethoxazole-trimethoprim 800-160 mg tablet 1 tab PO BID RF: 0 Referrals: Yogesh Stoddard MD [Primary Care Provider] -
--- NOTE | 2019-08-13 18:13 | DI.CT.S_ITS ---
PROCEDURE: CT ABDOMEN PELVIS W CON INDICATIONS: Generalized abdominal pain TECHNIQUE: After the administration of intravenous contrast, 5 mm thick sections acquired from the diaphragm to the symphysis. 5 mm coronal and sagittal reformats were acquired. For radiation dose reduction, the following was used: automated exposure control, adjustment of mA and/or kV according to patient size. COMPARISON: None. FINDINGS: Image quality: Motion degraded examination ABDOMEN: Lung bases: Lung bases are not well seen due to motion artifact. There is bibasilar patchy aspiration and/or atelectasis. Heart size is normal. Solid organs: Subcentimeter hepatic hypodensity image 14 which is indeterminate. Gallbladder mildly distended otherwise unremarkable. Biliary system is non dilated. Pancreas enhances normally. Spleen is normal in size and enhancement. No adrenal nodules. Kidneys demonstrate normal size and enhancement, without hydronephrosis. Numerous bilateral renal cysts, left greater than right, which are not well evaluated due to severe motion artifact. Peritoneum and bowel: No evidence of bowel obstruction. Large amount of dense stool seen within the rectal vault. No free fluid or air. Colonic diverticulosis. Appendix is not clearly identified however no suspicious pericecal inflammatory changes are seen. It may be surgically absent. Nodes and vessels: No retroperitoneal or mesenteric adenopathy by size criteria. Aorta and inferior vena cava are normal in size. Miscellaneous: No ventral hernias. PELVIS: Genitourinary: Bladder wall thickness is normal. Incidentally noted penile prosthesis. Small fat-containing right inguinal hernia Bones: No suspicious bony lesions. No vertebral body compression fractures. Left hip arthroplasty. IMPRESSION: Bilateral lower lobe aspiration/atelectasis versus pneumonia. Marked amount of dense stool seen within the rectal vault raise the possibility of fecal impaction, severe constipation Mildly distended appearance of the gallbladder otherwise unremarkable and recommend correlation to LFTs. Additional chronic and incidental findings as above. Motion degraded examination Dictated by: Gunnar Suresh M.D. on 08/13/2019 at 20:04 Approved by: Gunnar Suresh M.D. on 08/13/2019 at 20:10
[2019-08-13] MEDS: SODIUM CHLORIDE 0.9% 1,000 ML 125 ML IV (18:16)
[2019-08-13 18:33] LABS: Hematocrit 44.7 % (41-53); Hemoglobin 14.8 g/dL (13.5-17.5); Mean Corpuscular Hemoglobin 28.8 PG (26-34); Mean Corpuscular Volume 87.4 fL (80-100); Platelet Count 109 X10^3/uL (150-400); Red Blood Cell Count 5.12 X10^6/uL (4.5-5.9)
[2019-08-13 18:35] LABS: Add Manual Diff / Slide Review YES; White Blood Cell Count 36.3 X10^3/uL (4.5-11.0)
[2019-08-13 18:36] LABS: INR 1.1 (0.9-1.3); Prothrombin Time 12.2 SECONDS (10.1-12.7)
--- NOTE | 2019-08-13 18:37 | PC.NURSE ---
Critical lab value received from laboratory. WBC 36.3 . Pt's RN notified as well as .
[2019-08-13 18:39] LABS: PTT Partial Thromboplastin Tim 31 SECONDS (26.4-36.2)
[2019-08-13 18:40] LABS: Alanine Aminotransferase 61 IU/L (<50); Albumin 4.2 g/dL (3.5-5.0); Albumin Globulin Ratio 1.2 (1.0-2.8); Alkaline Phosphatase 170 U/L (38-126); Aspartate Aminotransferase 37 IU/L (17-59); BUN Creatinine Ratio 22.7 (6-22); Bilirubin Total 0.9 mg/dL (0.2-1.3); Blood Urea Nitrogen 25 mg/dL (9-20); Calcium 9.2 mg/dL (8.4-10.2); Carbon Dioxide 27 mmol/L (22-32); Chloride 95 mmol/L (98-107); Estimated Glomerular Filt Rate > 60.0 mL/min (>60); Globulin 3.6 g/dL (1.7-4.1); Glucose 195 mg/dL (80-110); HEMOLYSIS < 15 (0-50); Lipase 199 U/L (23-300); Potassium 4.5 mmol/L (3.4-5.1); Sodium 133 mmol/L (137-145); Total Protein 7.8 g/dL (6.3-8.2)
[2019-08-13 18:52] LABS: Procalcitonin 0.16 ng/mL (<0.5); Troponin I < 0.012 ng/mL (0.01-0.034)
[2019-08-13 18:53] LABS: B Type Natriuretic Peptide < 100 (<100)
[2019-08-13 19:00] LABS: Neutrophils Absolute Manual 28314 /uL (3000-5900); RBC Morphology Normal Morphology; Total Cells Counted 100
[2019-08-13 20:06] LABS: Bacteria Urine None Seen
[2019-08-13] MEDS: ALBUTEROL/IPRATROPIUM 3 ML AMPUL INH (20:13)
[2019-08-13 20:24] LABS: Calcium Oxalate Crystals Urine Few; RBC Urine 0-1/HPF (0-5/HPF); Squamous Epithelial Cell Urine 0-1 /HPF (0-5/HPF); WBC Urine 0-1/HPF (0-5/HPF)
[2019-08-13 20:25] LABS: Culture Indicated Urine Cult Not Indicated
[2019-08-13] MEDS: predniSONE 20 MG TABLET 40 MG PO (22:00)
--- NOTE | 2019-08-14 18:41 | PC.NURSE ---
Daughter called to speak w/ Dr. Velasco. Had spoken w/ Dr. Banerjee earlier in day. Requesting abx. Family was offered abx yesterday but initially declined. Dr. Velasco reviewed and ordered Levaquin 750 mg po daily x 5 days. Called Kamar Goins ([phone]) - she states that her dad is no worse but no better. Reviewed s/s to return. She states he did move his bowels. Agreed w/ plan of care. Encouraged to f/u as needed and indicated and return for any needs or concerns. Called in Levaquin to [facility].
== END 2019-08-13 22:40 | disposition home or self-care (01) ==
PROVIDERS: Emergency Provider Emergency Medicine; PCP Student in an Organized Health Care Education/Training Program
DX: E86.0 Dehydration (principal); J44.9 Chronic obstructive pulmonary disease, unspecified; R10.84 Generalized abdominal pain; K59.00 Constipation, unspecified; I48.92 Unspecified atrial flutter; R35.0 Frequency of micturition
CPT/HCPCS: 51798; 71045; 74177; 80053; 81003; 81015; 83605; 83690; 83880; 84145; 84484; 85025; 85610; 85730; 93005; 93010; 94640; 96360; 96361; 99285; Q9967

== ENCOUNTER 2019-08-18 11:18 | Emergency (ER) | payer MEDICARE, OTHER, SELFPAY ==
[2019-08-02 08:09] VITALS: BMI 21.7
[2019-08-03 08:00] VITALS: PULSE 96; RESP 29; O2SAT 100
[2019-08-18 11:49] VITALS: BP 128/60; PULSE 79; RESP 24; TEMP 36.6; O2SAT 97; BMI 21.7
--- NOTE | 2019-08-18 11:53 | ED_ITS ---
HPI - Allergic Reaction General Chief complaint: Allergic Reaction Stated complaint: allergic reaction swelling under ears both side li Time Seen by Provider: 08/18/19 11:45 Source: patient and family Mode of arrival: Wheelchair Limitations: language barrier History of Present Illness HPI narrative: 78-year-old gentleman with COPD and recent ICU stay with pneumonia, complicated by a new onset atrial fibrillation treated with oral diltiazem. Discharged approximately a week and a half ago from the intensive care unit and seems to be improving nicely. He continues on 2 L of oxygen at home as well as a slow prednisone taper, current we at 20 mg a day and has been on that for the last 3 days. Diltiazem is the only new medication that has been recently added. His family notes that his left lower lip has been a bit swollen since discharge from the hospital and they assumed that this was related to his recent ICU stay. Today they noticed increased swelling at the angles of the jaw bilaterally right greater than left. They are worried that this along with the left lip edema represents an allergic reaction and came in for further evaluation. No fevers, chills, his dyspnea seems to be improving and is a result of his COPD, recent hospital stay, he is taking all of his nebulizers and medications as well as steroids and home oxygen. He describes no chest pain he does not describe his tongue feeling full or too big to fit in his mouth nor any difficulty breathing or fullness at the back of his throat. No skin rashes. Cardiac review indicates he is now back in a normal sinus rhythm at a rate of 72. He has got scattered wheezes worse through all lung heath with mild crackles at the bases and his family continues to believe that this is a significant improvement from his recent ICU hospitalization Related Data Home Medications Medication Instructions Recorded Confirmed memantine 10 mg tablet 10 mg PO QPM 06/28/19 08/15/19 Brovana 15 mcg INHALATION BID 08/02/19 08/15/19 albuterol sulfate 2.5 mg INHALATION .COMPLEX PRN 08/02/19 08/15/19 budesonide 0.5 mg INHALATION BID 08/02/19 08/15/19 guaifenesin [Mucus Relief ER] 600 mg PO [id number] 08/13/19 08/15/19 tamsulosin 0.4 mg PO BEDTIME 08/13/19 08/15/19 Previous Rx's Medication Instructions Recorded prednisone 40 mg PO DAILY #16 tab 08/13/19 Allergies Allergy/AdvReac Type Severity Reaction Status Date / Time diltiazem Allergy Severe facial and Verified 08/18/19 13:18 lip edema aspirin AdvReac Severe h/o Verified 08/18/19 11:49 hemorrhagic stroke Review of Systems Review of Systems ROS Unobtainable: All systems reviewed & are unremarkable except as noted in HPI and below Patient History Social History household members: spouse and children Smoking Status: Former smoker Smoking Status: Former smoker alcohol intake frequency: a few times a month Substance Use Type: does not use Exam Narrative Exam Narrative: General: Frail-appearing appearing, in no acute distress. on oxygen, able to speak in full sentences but some dysarthria due to previous stroke HEENT: Moist mucous membranes, normal sclera with reactive pupils. There is some mild edema to the left side of the lower lip and mild edema over the angle of the jaw bilaterally right greater than left on the right side the edema seems to involve part of the area over the sternocleidomastoid muscle. No rashes associated with this. No obvious tongue or posterior pharyngeal edema Neck: No JVD, supple Respiratory: Lungs show full and symmetrical air movement with wheezes t hroughout all lower lung heath and minor crackles bilaterally. No significant rhonchi Cardiac: Regular rate and rhythm no murmurs no bruits Abdomen: Soft nontender good bowel tones, no flank pain Skin: Warm and dry, no rashes Neurologic: Grossly neurologically intact with no obvious asymmetries, minor dysarthria Extremities: No trauma, well perfused Psych: Cooperative, appropriate affect Initial Vital Signs Initial Vital Signs: Vital Signs Temperature 97.9 F 08/18/19 11:49 Pulse Rate 79 08/18/19 11:49 Respiratory Rate 24 08/18/19 11:49 Blood Pressure 128/60 08/18/19 11:49 Pulse Oximetry 97 08/18/19 11:49 Course Course Course Narrative: On re-evaluation after 25 mg of IV Benadryl and a single nebulizer treatment the wheezing in the lower lung heath has completely res olved and the swelling along the angle of the jaw bilaterally has significantly improved. There is still a mild amount of swelling in the lower lip left side. Have asked that we discontinue the diltiazem. He is back in normal sinus rhythm at this point and I believe it does not need to be restarted will add this to his list of allergies Anticipatory guidance reviewed. I believe he is safe for home discharge at this time Orders Ordered: ED Orders 08/18/19 11:45 Complete Blood Count AUTO DIFF Stat Comprehensive Metabolic Panel Stat 08/18/19 11:58 EKG-12 Lead Urgent RT Consult Eval and Treat STAT Discontinued Medications Albuterol/Ipratropium (Duoneb) 3 ml INH NOW ONE Stop: 08/18/19 11:59 Last Admin: 08/18/19 12:17 Dose: 3 ml Documented by: MYNOR Diphenhydramine HCl (Benadryl) 25 mg IV NOW ONE Stop: 08/18/19 12:01 Last Admin: 08/18/19 12:06 Dose: 25 mg Documented by: JYOTSNA Vital Signs Vital signs: Vital Signs - 8 hr 08/18/19 11:49 08/18/19 12:18 08/18/19 12:30 Temperature 97.9 F Pulse Rate 79 70 69 Respiratory Rate 24 20 23 Blood Pressure 128/60 Blood Pressure [Right Arm] 118/60 Pulse Oximetry 97 97 93 08/18/19 12:38 Temperature Pulse Rate 74 Respiratory Rate 21 Blood Pressure Blood Pressure [Right Arm] 118/60 Pulse Oximetry 93 MDM - Allergic Reaction Differential Diagnosis Differential diagnosis: Likely anaphylaxis, allergic reaction, angioedema and adverse reaction to drug Medical Records Attestation: I reviewed the patient's medical records. Lab Data Attestation: I reviewed the patient's lab results. Result diagrams: 08/18/19 11:45 08/18/19 11:45 Labs: Lab Results 08/18/19 08/18/19 Range/Units 11:45 11:45 WBC 17.6 H (4.5-11.0) X10^3/uL RBC 4.52 (4.5-5.9) X10^6/uL Hgb 13.1 L (13.5-17.5) g/dL Hct 39.0 L (41-53) % MCV 86.3 (80-100) fL MCH 28.9 (26-34) PG MCHC 33.5 (30-36) % RDW 15.4 H (11.6-14.8) % Plt Count 176 (150-400) X10^3/uL Neut % (Auto) Not Reportable Lymph % (Auto) Not Reportable [place] % (Auto) Not Reportable Eos % (Auto) Not Reportable Baso % (Auto) Not Reportable Lymph # (Auto) Not Reportable [place] # (Auto) Not Reportable Baso # (Auto) Not Reportable Total Counted 100 Seg Neutrophils % 83.0 H (38-70) % Band Neutrophils % 1.0 L (3-7) % Lymphocytes % (Manual) 11.0 L (25-45) % Atypical Lymphs % 2.0 H ( - 0) % Monocytes % (Manual) 3.0 (2-11) % Neutrophils # (Manual) 18748 H (2734-6631) /uL RBC Morphology Normal morphology Sodium 136 L (137-145) mmol/L Potassium 4.2 (3.4-5.1) mmol/L Chloride 95 L (98-107) mmol/L Carbon Dioxide 33 H (22-32) mmol/L BUN 20 (9-20) mg/dL Creatinine 0.80 (0.66-1.25) mg/dL Estimated GFR > 60.0 (>60) mL/min BUN/Creatinine Ratio 25.0 H (6-22) Glucose 160 H (80-110) mg/dL Calcium 8.9 (8.4-10.2) mg/dL Total Bilirubin 0.4 (0.2-1.3) mg/dL AST 64 H (17-59) IU/L ALT 116 H (<50) IU/L Alkaline Phosphatase 127 H (38-126) U/L Total Protein 7.0 (6.3-8.2) g/dL Albumin 3.7 (3.5-5.0) g/dL Globulin 3.3 (1.7-4.1) g/dL Albumin/Globulin Ratio 1.1 (1.0-2.8) ECG Data Attestation: I personally reviewed and interpreted this ECG as follows: Interpretation: Normal sinus rhythm at a rate of 68. No acute ischemic changes. Normal axis. QRS borderline long at 86 milliseconds Discharge Plan Departure Patient Disposition: Home Clinical Impression: Allergic reaction Qualifiers: Encounter type: initial encounter Qualified Code(s): T78.40XA - Allergy, unspecified, initial encounter Instructions: DI for Anaphylaxis Activity Restrictions/Additional Instructions: Thank you for coming in today. I think that you are correct and that you are developing an allergy to diltiazem. Fortunately you have also switched back into a normal sinus rhythm after the paroxysmal atrial fibrillation that was a problem with year acute pneumonia. At this time I am going to have you stop the diltiazem completely and I do not think that it needs to be replaced. Four your previous lung diagnosis you have a continued prednisone taper and I believe that will also help mitigate some of the allergy symptoms you are having. Please consider diltiazem an allergy for you If you feel that you are getting worse or new symptoms or developing please return to the ER. Otherwise continue year schedule follow-up appointment with your outpatient primary care physician. I hope you continue to heal well after your pneumonia hospitalization Prescriptions: Discontinued diltiazem HCl [Cartia XT] 180 mg capsule,extended release 24hr 360 mg PO BEDTIME RF: 0 No Action memantine 10 mg tablet 10 mg PO QPM RF: 0 albuterol sulfate 2.5 mg /3 mL (0.083 %) solution for nebulization 2.5 mg INHALATION .COMPLEX PRN (Reason: shortness of breath) RF: 0 Brovana 15 mcg/2 mL Solution For Nebulization 15 mcg INHALATION BID RF: 0 budesonide 0.5 mg/2 mL Suspension For Nebulization 0.5 mg INHALATION BID RF: 0 tamsulosin 0.4 mg capsule 0.4 mg PO BEDTIME RF: 0 guaifenesin [Mucus Relief ER] 600 mg Tablet Extended Release 12hr 600 mg PO [id number] RF: 0 prednisone 20 mg tablet 40 mg PO DAILY Qty: 16 RF: 0 Referrals: Yogesh Stoddard MD [Primary Care Provider] -
[2019-08-18] MEDS: diphenhydrAMINE 50 MG/ML VIAL 25 MG IV (12:06)
[2019-08-18] MEDS: ALBUTEROL/IPRATROPIUM 3 ML AMPUL INH (12:17)
[2019-08-18 12:18] VITALS: PULSE 70; RESP 20; O2SAT 97
[2019-08-18 12:21] LABS: Hemoglobin 13.1 g/dL (13.5-17.5); Mean Corpuscular HGB Conc 33.5 % (30-36); Mean Corpuscular Hemoglobin 28.9 PG (26-34); Mean Corpuscular Volume 86.3 fL (80-100); Platelet Count 176 X10^3/uL (150-400); Red Blood Cell Count 4.52 X10^6/uL (4.5-5.9); Red Cell Distribution Width 15.4 % (11.6-14.8); White Blood Cell Count 17.6 X10^3/uL (4.5-11.0)
[2019-08-18 12:22] LABS: Add Manual Diff / Slide Review YES; Alanine Aminotransferase 116 IU/L (<50); Albumin 3.7 g/dL (3.5-5.0); Albumin Globulin Ratio 1.1 (1.0-2.8); Alkaline Phosphatase 127 U/L (38-126); Aspartate Aminotransferase 64 IU/L (17-59); Bilirubin Total 0.4 mg/dL (0.2-1.3); Blood Urea Nitrogen 20 mg/dL (9-20); Calcium 8.9 mg/dL (8.4-10.2); Carbon Dioxide 33 mmol/L (22-32); Chloride 95 mmol/L (98-107); Estimated Glomerular Filt Rate > 60.0 mL/min (>60); Globulin 3.3 g/dL (1.7-4.1); Glucose 160 mg/dL (80-110); HEMOLYSIS < 15 (0-50); Potassium 4.2 mmol/L (3.4-5.1); Sodium 136 mmol/L (137-145)
[2019-08-18 12:30] VITALS: BP 118/60; PULSE 69; RESP 23; O2SAT 93
[2019-08-18 12:38] VITALS: BP 118/60; PULSE 74; RESP 21; O2SAT 93
[2019-08-18 13:04] LABS: Neutrophils Absolute Manual 14784 /uL (3000-5900); RBC Morphology Normal Morphology; Total Cells Counted 100
[2019-08-18 13:23] VITALS: BP 124/65; PULSE 77; RESP 23; O2SAT 94
== END 2019-08-18 13:39 | disposition home or self-care (01) ==
PROVIDERS: Emergency Provider Emergency Medicine; PCP Student in an Organized Health Care Education/Training Program
DX: T78.40XA Allergy, unspecified, initial encounter (principal); Z86.79 Personal history of other diseases of the circulatory system
CPT/HCPCS: 36415; 80053; 85025; 93005; 93010; 94640; 96374; 99284; J1200

== ENCOUNTER → 2019-08-28 11:52 | Outpatient (ROUT) | payer MEDICARE, OTHER, SELFPAY ==
[2019-08-02 08:09] VITALS: BMI 21.7
[2019-08-03 08:00] VITALS: PULSE 96; RESP 29; O2SAT 100
[2019-08-28 11:58] LABS: Appearance Urine UA CLEAR; Bilirubin Urine UA NEGATIVE (NEGATIVE); Color Urine UA YELLOW; Glucose Urine UA TRACE g/dL (Negative); Ketones Urine UA NEGATIVE (NEGATIVE); Leukocyte Esterase Urine UA NEGATIVE (NEGATIVE); Nitrite Urine UA NEGATIVE (Negative); Occult Blood Urine UA 1+ (Negative); Protein Urine UA NEGATIVE (Negative); Urobilinogen Urine UA 0.2 E.U./dL (0.2); pH Urine UA 6.5 (4.5-8.0)
[2019-08-28 12:09] LABS: RBC Urine 1-5/HPF (0-5/HPF); Squamous Epithelial Cell Urine 0-1 /HPF (0-5/HPF); WBC Urine 1-5/HPF (0-5/HPF)
[2019-08-28 12:10] LABS: Bacteria Urine Few (2-10); Culture Indicated Urine Cult Not Indicated
== END ==
PROVIDERS: PCP Student in an Organized Health Care Education/Training Program; Visit Provider Student in an Organized Health Care Education/Training Program
DX: N39.0 Urinary tract infection, site not specified (principal)
CPT/HCPCS: 81001